=== PATIENT | female | born 1945 | race Caucasian/White ===

== ENCOUNTER 2018-06-07 13:02 | Observation (INO) | payer MEDICARE, OTHER, SELFPAY ==
[2018-06-07] VITALS (13 sets, daily range): BP systolic 143–173; BP diastolic 61–97; PULSE 64–74; RESP 13–17; TEMP 36.4–36.8; O2SAT 94–98; BMI 29.1; BMI 29.2
--- NOTE | 2018-06-07 13:27 | EKG12_ITS ---
Test Reason : WEAKNESS Blood Pressure : / mmHG Vent. Rate : 068 BPM Atrial Rate : 068 BPM P-R Int : 174 ms QRS Dur : 102 ms QT Int : 406 ms P-R-T Axes : 048 -08 149 degrees QTc Int : 431 ms Normal sinus rhythm T wave abnormality, consider lateral ischemia Abnormal ECG Confirmed by MAK CAMERON, TWILA ([id number]), telegraph editor YUMIKO TELLEZ ([id number]) on 06/10/2018 8:22:41 AM Referred By: RODNEY Confirmed By:TWILA CORADO MD
--- NOTE | 2018-06-07 13:27 | CT_ITS ---
STUDY: CT BRAIN WITHOUT CONTRAST REASON FOR EXAM: Female, 72 years old. Right hand weakness and confusion. RADIATION DOSAGE (If Supplied By Facility): CTDIvol = ( 60.81 ) mGy, DLP = ( 1044.28 ) mGycm TECHNIQUE: Transaxial CT imaging of the brain was performed without administration of intravenous contrast material. Individualized dose optimization techniques were used for this CT. COMPARISON: None. FINDINGS: Normal soft tissue structures. There is hyperostosis frontalis internus. There is mild cerebral atrophy with widening of the extra-axial spaces and ventricular dilatation. There are areas of decreased attenuation within the white matter tracts of the supratentorial brain, consistent with microvascular disease changes. Normal basal ganglia and thalami. Normal brainstem. Normal cerebellum. There is no intracranial hemorrhage. There are no findings of an acute ischemic infarction. Opacification of the right sphenoid sinus. CT/Brain/Head without Contrast IMPRESSION: Chronic involutional changes of the brain. Electronically Signed: Bertram Brown MD at 14:08 EST , Service support ,
--- NOTE | 2018-06-07 13:28 | RAD_ITS ---
STUDY: X-RAY CHEST REASON FOR EXAM: Female, 72 years old. Stroke like symptoms. TECHNIQUE: Single AP portable view of the chest. COMPARISON: None. FINDINGS: EKG electrodes are seen. The lungs are clear and expanded. There is no demonstrated pleural abnormality. Sternal cerclage wires and vascular clips are present from a prior sternotomy and coronary artery bypass graft procedure (CABG). Borderline cardiomegaly. Normal mediastinum and ana maria. Normal visualized pulmonary arteries. There is atherosclerotic calcification of the aortic arch with tortuosity. Normal visualized thoracic spine. Normal visualized ribs, clavicles, and shoulders. Moderate sized hiatal hernia. RAD/Chest 1 View IMPRESSION: No acute abnormality is seen. Electronically Signed: Bertram Brown MD at 14:05 EST , Service support ,
--- NOTE | 2018-06-07 13:28 | ED.VISSUMM ---
- ER Visit Summary Date of Service: 06/07/18 Chief Complaint: Transient weakness History of Present Illness: The patient is a 72 F who was tying her shoes about 2 days ago developed transient weakness in her right leg and right arm she was having difficulty tying her shoes difficulty buckling in the car and difficulty walking, this lasted about 10 minutes and resolved. This morning she had some paresthesias of her right hand. She denies any vision changes speech difficulties chest pain shortness of breath or abdominal pain. Currently she is asymptomatic. She denies any palpitations, history of atrial fibrillation, however she does have a history of diabetes hypertension hypercholesterolemia and a surgical history consistent with CABG. Physical Examination: Not appear in acute distress. Moist mucous membranes, no obvious facial deformity No C-spine tenderness supple neck. Regular rate and rhythm without any obvious murmurs Clear lungs bilaterally speaking in full sentences without any obvious respiratory distress Abdomen soft and nontender no guarding or rebound Moves all extremities without any difficulty or pain. Skin does not show any obvious rashes or lesions, no trauma. Alert oriented ?3 with no gross focal deficit. NIH stroke scale done by me is 0 Emergency Department Course and Treatment: Since ABCD 2 score is 5, she will be admitted for stroke workup. Her workup is otherwise unremarkable except for renal insufficiency. Disposition: Admit for stroke workup Impression: TIA This note was generated with [employer] dictation software. It may contain incorrect words, spelling, and punctuation that were not noted in review of the chart prior to signing ED Disposition - Plan for ED Patient: Referrals: Petros Gambino MD [Primary Care Provider] -
[2018-06-07 14:00] LABS: Absolute Lymphocyte Count 2.43 X10^3/ul (0.83-4.51); Absolute Neutrophil Count 4.7 X10^3/uL (2.0-7.7); Basophil# 0.02 X10^3/uL; Basophil% 0.3 % (0-1); Eosinophil# 0.12 X10^3/uL; Eosinophils% 1.5 % (0-5); Hematocrit 34.3 % (37-47); Hemoglobin 10.8 g/dl (12.0-15.0); Lymphocyte # 2.43 X10^3/ul (4.0); Mean Corp Hgb Conc 31.5 g/gl (32-36); Mean Corpuscular Hgb 29.8 pg (27.0-32.0); Mean Corpuscular Volume 94.5 fL (81-99); Mean Platelet Vol. 10.2 fl (6.2-12.0); Monocyte# 0.53 X10^3/uL; Monocyte% 6.8 % (0-10); Neutrophil # 4.72 X10^3/uL (2.7-7.7); Neutrophil % 60.3 % (47-70); Platelet Count 244 K/mm3 (150-450); RBC Distribution Width CV 12.5 % (11.6-14.6); Red Blood Count 3.63 M/mm3 (4.2-5.4); White Blood Count 7.8 K/mm3 (4.4-11.0)
[2018-06-07 14:01] LABS: POSITIVE COUNT NO; POSITIVE DIFFERENTIAL NO; POSITIVE MORPHOLOGY NO
[2018-06-07 14:07] LABS: Bedside Glucose 193 mg/dL (70-110)
[2018-06-07 14:07] LABS: International Normalized Ratio 0.9; Prothrombin Time (Protime)PT. 12.6 SECONDS (11.7-14.9)
[2018-06-07 14:08] LABS: Partial Thromboplast Time 26.5 Seconds (24.1-36.2)
[2018-06-07 14:15] LABS: Anion Gap 5 (5-15); BUN 33 mg/dL (7-18); Calcium,Total 9.2 mg/dL (8.5-10.1); Chloride 112 mmol/L (98-107); Creatinine, Serum 2.06 mg/dL (0.55-1.02); EST Glomerular Filtration Rate 25 mL/min (>60); Est Glom Filt Rate - Afr Amer 30 mL/min (>60); Estimated Creatinine Clearance 21.56 ml/min; Glucose 207 mg/dL (74-106); Potassium 4.4 mmol/L (3.5-5.1); Sodium Level 142 mmol/L (136-145)
--- NOTE | 2018-06-07 15:28 | NURSING ---
DR YANN STEVENS
--- NOTE | 2018-06-07 15:44 | ED.RN ---
verbal order received from Dr. Baeza at 1500 to discontinue NIH's.
--- NOTE | 2018-06-07 15:48 | HP.PCM_ITS ---
<Lane Nogueira - Last Filed: 06/07/18 15:48> Problem List (1) CVA (cerebral vascular accident) Status: Acute (2) HTN (hypertension) Status: Chronic (3) CAD (coronary artery disease) Status: Chronic (4) CKD (chronic kidney disease) stage 3, GFR 30-59 ml/min Status: Chronic (5) Anemia Status: Chronic History of Present Illness Date of Admission: 06/07/18 Chief Complaint: right sided weakness The patient is a 72 year old F with pmhx of CAD with prior CABG 2005, HTN, HLD, T2DM, who presents to the ER with c/o right sided weakness and right sided parasthesias. This began suddenly yesterday. It began as a sensation of weakness in her upper and lower extremities. She was unable to raise her right arm. She felt uncoordinated and had difficulty walking. She also had difficulty speaking and talking to her . This did last for about 10 minutes before spont aneously and completely resolving. She then this morning felt that her right hand went numb. She denied facial droop, headache, and vision changes. She presented to the ER and had a negative CT brain, was found to have significant HTN. She has no hx of stroke. She does take aspirin and atorvastatin. [] Past Medical History Past Medical History (Chronic Problems): Chronic Problems HTN (hypertension) (Chronic) CAD (coronary artery disease) (Chronic) CKD (chronic kidney disease) stage 3, GFR 30-59 ml/min (Chronic) Anemia (Chronic) Type II diabetes mellitus (Chronic) Allergies No Known Allergies Allergy (Verified 06/07/18 13:07) Home Medications: Ambulatory Orders Medication Instructions Recorded Aspirin E.C. [Ecotrin] 81 mg PO DAILY@0800 06/07/18 Atorvastatin Calcium 20 mg PO DAILY 06/07/18 Insulin Glargine [Lantus SoloStar 24 unit SQ DAILY 06/07/18 Pen] Insulin Lispro [Humalog KwikPen] 8 unit SQ DAILY 06/07/18 Lisinopril [Zestril] 10 mg PO BID 06/07/18 Surgical History: appendectomy, no surgical history Psychiatric History: No pertinent psych hx SHARED SERVICES REPRESENTATIVE History: No pertinent SHARED SERVICES REPRESENTATIVE history Lives: Spouse/ Significant Other Smoking Status: Never smoker Tobacco Use: Non-smoker Alcohol: None Drugs: None - *Family History Maternal History Items: Stroke Review of Systems Constitutional: Denies: Chills, Fever, Weight Change HEENT: Denies: Head Aches, Sinus Congestion, Sinus Drainage Cardiovascular: Denies: Chest Pain, Palpitations Respiratory: Denies: Cough, Shortness of breath at rest, Sputum production Gastrointestinal: Denies: Abdominal Pain, Nausea, Vomiting Genitourinary: Denies: Dysuria Musculoskeletal: Denies: Joint Pain, Joint Tenderness Skin: Denies: Rash, Wounds Neurological: Reports: Change in Speech, Focal weakness, Incoordination, Numbness, Tingling. Denies: Difficulty swallowing, Headaches Psychiatric: Denies: Anxiety, Depression, Homicidal Ideations, Suicidal Ideations Hematologic/ Lymphatic: Denies: Easy Bruising, Easy Bleeding VTE Information - Inpt Only VTE Present on Admission: No VTE Mechan Device Prophylaxis: None VTE Pharm Prophylaxis ordered?: Yes Patient Problems: Active and Suspected Problems CVA (cerebral vascular accident) (Acute) - Physical Exam General: Alert, Oriented x3, Cooperative HEENT: Atraumatic, PERRLA, EOMI, Normocephalic Neck: Supple, No JVD, Negative Carotid Bruits Lungs: Clear to auscultation, Normal air movement Cardiovascular: Regular rate, No murmurs Abdomen: Bowel Sounds Present, Soft, Non Tender Extremities: No edema, Capillary Refill Less than 3 Seconds Skin: No rashes, No breakdown Musculoskeletal: No Tenderness to Palpation of Joints or Extremities Neurological: Cranial nerves II-XII grossly intact Psych/Mental Status: Normal Affect, Appropriate Vital Signs Temp Pulse Resp BP Pulse Ox 97.5 F L 71 16 171/86 H 96 06/07/18 13:04 06/07/18 14:57 06/07/18 14:57 06/07/18 14:57 06/07/18 14:57 Oxygen Delivery Method Room Air Weight: 175 lb Body Mass Index (BMI) 29.1 Finger Stick Blood Glucose 193 Laboratory Tests Past 24 Hrs 06/07/18 06/07/18 06/07/18 13:40 13:40 13:40 WBC 7.8 RBC 3.63 L Hgb 10.8 L Hct 34.3 L MCV 94.5 MCH 29.8 MCHC 31.5 L RDW 12.5 RDW Differential 42.0 Plt Count 244 MPV 10.2 Immature Gran % (Auto) 0.100 Neut % (Auto) 60.3 Lymph % (Auto) 31.0 Miller % (Auto) 6.8 Eos % (Auto) 1.5 Baso % (Auto) 0.3 Absolute Neuts (auto) 4.7 Absolute Lymphs (auto) 2.43 Total Counted Not Reportable PT 12.6 INR 0.9 APTT 26.5 Sodium 142 Potassium 4.4 Chloride 112 H Carbon Dioxide 25.0 Anion Gap 5 BUN 33 H Creatinine 2.06 H Estim Creat Clear Calc 21.56 Est GFR (MDRD) Af Amer 30 L Est GFR (MDRD) Non-Af 25 L BUN/Creatinine Ratio 16.0 Glucose 207 H Calcium 9.2 Troponin I < 0.015 POC Glucose 06/07/18 13:59 POC Glucose 193 H Assessment/Plan All Active Problems CVA (cerebral vascular accident) (Acute) 1. CVA, suspect TIA - transient right sided weakness, speech difficulty, parasthesias right side. Now resolved. Marked HTN. CT brain with chronic changes. Continue asa/statin. Consult neuro. Obtain MRI brain, MRA head and neck. Obtain echo. PTOTST evals. Trop neg. EKG with SR, nonspecific t wave abnormalities. INR normal. CXR neg. 2. HTN - hold orals. permissive with CVA> 3. DMt2 - home insulin regimen will need improved. 4. Suspect CKD III - no prior labs available. IV fluids with need for contrast. 5. Normocytic anemia - trend. no prior labs available. 6. CAD - CABG in 2005. Negative trop, EKG SR, t wave changes. DVT ppx: heparin DC planning: PTOTST This patient was seen by Lane Nogueira PA-C under the supervision of Dr. Medina. <Enio Medina - Last Filed: 06/07/18 16:10> History of Present Illness The patient is a 72 year old F came to ED for right sided weakness and paresthesia; lasting for about 10 mins about 2 days ago and again right hand numbness today am. Denies previous stroke/TIA. Rest agree with above note. [] Past Medical History Allergies zinc Allergy (Verified 06/07/18 15:46) blisters - Physical Exam General: Alert, Oriented x3, Cooperative HEENT: Atraumatic, PERRLA, EOMI, Normocephalic Neck: Supple, No JVD, Negative Carotid Bruits Lungs: Clear to auscultation, Normal air movement Cardiovascular: Regular rate, Regular Rhythm, Normal S1, Normal S2, No murmurs Abdomen: Bowel Sounds Present, Soft, Non Tender, Non-Distended Extremities: No edema, Capillary Refill Less than 3 Seconds Skin: No rashes, No breakdown Musculoskeletal: No Tenderness to Palpation of Joints or Extremities, Arthritic Changes Neurological: Cranial nerves II-XII grossly intact, Deep Tendon Reflexes 2+/4 and Symmetrical, Neuro grossly intact, Motor Exam 5/5 strength throughout, - - NIHSS 0 Psych/Mental Status: Normal Affect, Appropriate Vital Signs Temp Pulse Resp BP Pulse Ox 97.5 F L 74 17 173/77 H 98 06/07/18 13:04 06/07/18 15:45 06/07/18 15:45 06/07/18 15:45 06/07/18 15:45 Oxygen Delivery Method Room Air Weight: 175 lb Body Mass Index (BMI) 29.1 Finger Stick Blood Glucose 193 Laboratory Tests Past 24 Hrs 06/07/18 06/07/18 06/07/18 13:40 13:40 13:40 WBC 7.8 RBC 3.63 L Hgb 10.8 L Hct 34.3 L MCV 94.5 MCH 29.8 MCHC 31.5 L RDW 12.5 RDW Differential 42.0 Plt Count 244 MPV 10.2 Immature Gran % (Auto) 0.100 Neut % (Auto) 60.3 Lymph % (Auto) 31.0 Miller % (Auto) 6.8 Eos % (Auto) 1.5 Baso % (Auto) 0.3 Absolute Neuts (auto) 4.7 Absolute Lymphs (auto) 2.43 Total Counted Not Reportable PT 12.6 INR 0.9 APTT 26.5 Sodium 142 Potassium 4.4 Chloride 112 H Carbon Dioxide 25.0 Anion Gap 5 BUN 33 H Creatinine 2.06 H Estim Creat Clear Calc 21.56 Est GFR (MDRD) Af Amer 30 L Est GFR (MDRD) Non-Af 25 L BUN/Creatinine Ratio 16.0 Glucose 207 H Calcium 9.2 Troponin I < 0.015 POC Glucose 06/07/18 13:59 POC Glucose 193 H Assessment/Plan This patient was seen in conjunction with Lane LU. I have independently interviewed and examined the patient and reviewed pertinent history, examination findings, laboratory and plan of management. I have reviewed the note and agree with the documented findings with the few additional points. In brief, patient is admitted for TIA. Stroke work up with MRI Head and MRA head and neck, ECHO, FLP, A1c, neurologist evaluation, PT/OT/Speech and swallow evaluation. EKG reviewed and shows NSR with nonspecific T wave inversion, most probably repolarization abnormality. BP is elevated. BP and Glucose to be optimized as per stroke guidelines. Plan of management discussed with patient and her near the bedside I have discussed my assessment with Lane LU and orders have been reviewed. Code Visit OBSV E&M: 22151 Initial observation care L3
--- NOTE | 2018-06-07 16:28 | MRI_ITS ---
STUDY: MRI BRAIN WITHOUT CONTRAST REASON FOR EXAM: Female, 72 years old. TIA, right-sided numbness and tingling x2 days. TECHNIQUE: Standardized multiplanar fat and water weighted pulse sequences were obtained. COMPARISON: CT brain 06/07/2018. FINDINGS: There are several punctate foci of restricted diffusion in the left parietal and occipital lobes, consistent with embolic phenomenon. There is no mass, hemorrhage, or territorial infarct. There is mild cerebral atrophy with widening of the extra-axial spaces and ventricular dilatation. There are multiple white matter hyperintensities, distributed throughout the deep white matter tracts of the cerebral hemispheres, consistent with moderate chronic white matter ischemic changes. Normal bilateral basal ganglia. Normal thalami. There is no extra-axial fluid accumulation. Normal flow voids within the major intracranial circulation suggesting patency by spin echo criteria. Normal sella turcica, pituitary gland, infundibular stalk, optic chiasm and hypothalamus. Normal tectal plate and pineal gland. Normal midbrain, ramiro and medulla. Normal cerebellum. Normal basal cisterns. Normal bilateral temporal bones. Normal bilateral internal auditory canals. No demonstrated orbital abnormality, within the constraints of a routine brain study. There is moderate mucosal thickening in the right sphenoid sinus. Normal calvarium and skull base. Normal visualized soft tissue structures. Normal visualized upper cervical spine. MRI/Brain without Contrast IMPRESSION: 1. Multiple punctate infarcts in the left parietal and occipital lobes consistent with embolic phenomenon. 2. Moderate microvascular ischemic changes. 3. Chronic sinusitis. Dr. Griffith discussed the findings with Dr. Meza at 8:13 PM. N.B. : The above information has been verbally conveyed by Ana Lilia Griffith MD to Dr. Lola Meza MD, on 06/07/2018 20:13:29 (ET). Electronically Signed: Ana Lilia Griffith MD at 20:22 EST Tel , Service support ,
--- NOTE | 2018-06-07 16:28 | MRI_ITS ---
STUDY: MRA OF THE HEAD WITHOUT CONTRAST REASON FOR EXAM: Female, 72 years old. TIA, right-sided numbness and tingling x2 days. TECHNIQUE: 3-D [id number] (TOF) imaging was performed with MIPs. The study was performed unenhanced. COMPARISON: None. FINDINGS: Normal bilateral petrous carotid arteries. Normal right cavernous carotid artery with a normal supraclinoid bifurcation. Normal left cavernous carotid artery with a normal supraclinoid bifurcation. Normal right A1 segments of the anterior cerebral artery. Normal left A1 segments of the anterior cerebral artery. Normal intact anterior communicating artery (ACOM). Normal bilateral A2 segments of the anterior cerebral arteries. Normal right M1 and M2 segments of the middle cerebral arteries, with a normal M1 bifurcation. Normal left M1 and M2 segments of the middle cerebral arteries, with a normal M1 bifurcation. There is non-visualization of the right posterior communicating artery (PCOM). There is non-visualization of the left posterior communicating artery (PCOM). Normal bilateral vertebral arteries. Normal basilar artery with a normal basilar bifurcation. The visualized bilateral superior cerebellar (SCA) arteries are normal. Normal bilateral P1, P2 and visualized P3 segments of the posterior cerebral arteries. There is no demonstrated aneurysm of the [place]. There is no major vessel occlusion or significant stenosis. MRI/MRA Head ONLY without Contrast IMPRESSION: Normal MRA of the head. Electronically Signed: Ana Lilia Griffith MD at 20:07 EST Tel , Service support ,
--- NOTE | 2018-06-07 16:28 | MRI_ITS ---
STUDY: MRA NECK WITHOUT CONTRAST REASON FOR EXAM: Female, 72 years old. TECHNIQUE: Source images were obtained, MIPs were performed. The study was performed unenhanced. COMPARISON: None. FINDINGS: RIGHT CAROTID ARTERIES: Normal right common carotid artery (CCA). Normal right common carotid bulb. Normal origin of the right internal carotid (ICA) artery without a significant stenosis. Normal visualized cervical portion of the right internal carotid artery. Normal origin of the right external carotid artery (ECA). LEFT CAROTID ARTERIES: Normal left common carotid artery (CCA). Normal left common carotid bulb. Normal origin of the left internal carotid (ICA) artery without a significant stenosis. Normal visualized cervical portion of the left internal carotid artery. Normal origin of the left external carotid artery (ECA). VERTEBRAL ARTERIES: Right dominant vertebral artery. Vertebral arteries are patent bilaterally, with no dissection, stenosis, or occlusion. MRI/MRA Neck without Contrast IMPRESSION: Normal bilateral cervical carotid and vertebral arteries. Electronically Signed: Ana Lilia Griffith MD at 20:16 EST Tel , Service support ,
--- NOTE | 2018-06-07 16:28 | ECHOCS_ITS ---
Reason For Study: TIA Procedure This was a 2D Doppler, Color Flow transthoracic echocardiogram. Exam performed portable in patient room. Left Ventricle Moderate concentric left ventricular hypertrophy. The estimated ejection fraction is 65 %. Stage 1 diastolic dysfunction. No regional wall motion abnormalities noted. Right Ventricle Normal size and thickness. Normal systolic function. Atria The left atrium is mildly enlarged. Normal right atrium. Normal atrial septum. Bubble contrast study negative for right to left interatrial shunt. Mitral Valve The mitral valve is structurally normal. No prolapse or stenosis seen. Tricuspid Valve Normal tricuspid valve. Trivial tricuspid valve insufficiency. Right ventricular systolic pressure estimated to be 38 mmHg. Mild pulmonary hypertension. Aortic Valve Trisinus/trileaflet aortic valve. Mild diffuse aortic valve thickening. There is no aortic stenosis. Pulmonic Valve Normal pulmonic valve. Great Vessels Normal aortic root. Mild atherosclerosis of the aortic arch. Normal inferior vena cava. Inferior vena cava collapse with respiration. Pericardium/Pleural No pericardial effusion. Medication Diluted definity 6ml given slow IV push to enhance endocardial definition. Performed a rapid injection of agitated mix of 9 cc saline and 1cc air to assess for atrial septal defect. MMode/2D Measurements & Calculations LVIDd: 3.8 cm IVSd: 1.6 cm LA dimension: 4.3 cm LVIDs: 2.6 cm LVPWd: 1.4 cm FS: 33.0 % LAV(MOD-sp4): 63.8 ml LA A4 area: 20.5 cm2 RA A4 area: 15.5 cm2 Time Measurements MV dec time: 0.23 sec Doppler Measurements & Calculations MV E max tejinder: 109.1 cm/sec Lat Peak E' Tejinder: 9.9 cm/sec Med Peak E' Tejinder: 5.0 cm/sec MV A max tejinder: 122.9 cm/sec E/E' lat: 11.1 E/E' med: 21.7 MV E/A: 0.89 MV V2 max: 131.9 cm/sec MV P1/2t max tejinder: 123.3 cm/sec Ao V2 max: 169.5 cm/sec MV max P.0 mmHg MV P1/2t: 102.7 msec Ao max P.5 mmHg MV V2 mean: 72.3 cm/sec MV dec slope: 351.5 cm/sec2 Ao V2 mean: 112.6 cm/sec MV mean P.5 mmHg Ao mean P.7 mmHg MV V2 VTI: 38.9 cm MVA(P1/2t): 2.1 cm2 Ao V2 VTI: 34.8 cm LV V1 max: 105.3 cm/sec PA V2 max: 111.7 cm/sec TR max tejinder: 286.5 cm/sec LV V1 max P.5 mmHg TR max P.8 mmHg LV V1 mean P.2 mmHg LV V1 mean: 68.2 cm/sec LV V1 VTI: 23.9 cm Interpretation Summary Moderate concentric left ventricular hypertrophy. The estimated ejection fraction is 65 %. Stage 1 diastolic dysfunction. Bubble contrast study negative for right to left interatrial shunt. Trivial tricuspid valve insufficiency. Right ventricular systolic pressure estimated to be 38 mmHg. Mild pulmonary hypertension. The study was technically difficult. A transesophageal echocardiogram is recommended. There is no comparison study available. Ordering Physician: Enio Medina Referring Physician: MD Maki Petros Performed By: Tristan Pineda RCS
[2018-06-07] MEDS: 0.9% Normal Saline 1,000 ML 75 ML IV (16:51)
[2018-06-07] MEDS: 0.9% NaCl Peripheral Flush Adult/Peds IV (16:51)
[2018-06-07 17:11] LABS: Bedside Glucose 131 mg/dL (70-110)
[2018-06-07] MEDS: Insulin Lispro 100 UNIT/ML INSULN.PEN 8 UNIT SC (18:20)
[2018-06-07] MEDS: Aspirin E.C. 81 MG Tablet PO (18:20)
--- NOTE | 2018-06-07 19:35 | NURSING ---
Spoke with patient's daughter Masha about patient status.
--- NOTE | 2018-06-07 20:12 | PCM.HOSP.N ---
Hospitalist Note RADIOLOGY CALL BACK ON IMAGING RESULTS: MRI brain w/ multiple small lacunar punctate infarctions in the L parietal and occipital lobe, likely embolic, two different vascular distributions per Radiology discussion.
[2018-06-07] MEDS: Atorvastatin Calcium 80 MG Tablet PO (21:39)
[2018-06-07] MEDS: APIXABAN 5 MG TABLET PO (21:39)
[2018-06-07] MEDS: MELATONIN 3 MG TABLET PO (21:39)
[2018-06-07 22:31] LABS: Bedside Glucose 87 mg/dL (70-110)
[2018-06-08] VITALS (7 sets, daily range): BP systolic 130–147; BP diastolic 49–71; PULSE 58–97; RESP 16; TEMP 36.7; O2SAT 94–97
[2018-06-08] MEDS: Acetaminophen 325 MG Tablet 650 MG PO (02:00)
[2018-06-08 06:13] LABS: AST(SGOT) 11 U/L (15-37); Alanine Aminotransfer ALT/SGPT 18 U/L (13-56); Albumin, Serum 2.6 g/dL (3.2-5.0); Alkaline Phosphatase 102 U/L (45-117); Bilirubin, Direct 0.14 mg/dL (0.00-0.30); Cholesterol 98 mg/dL (200); Globulin 3.6 g/dL (2.2-4.2); High Density Lipoprotein 37 mg/dL; Protein, Total 6.2 g/dL (6.4-8.2); Thyroid Stim Hormone (TSH) 2.52 uIU/mL (0.358-3.74); Triglycerides 111 mg/dL; Very Low Density Lipoprotein 22 mg/dL (5-40)
[2018-06-08 06:56] LABS: Bedside Glucose 89 mg/dL (70-110)
[2018-06-08] MEDS: Famotidine 20 MG Tablet PO (10:08)
[2018-06-08] MEDS: Aspirin E.C. 81 MG Tablet PO (10:08)
[2018-06-08] MEDS: APIXABAN 5 MG TABLET PO (10:08)
[2018-06-08] MEDS: 0.9% Normal Saline 1,000 ML 75 ML IV (10:09)
--- NOTE | 2018-06-08 10:44 | PCM.CONS.GEN ---
Reason for Consult Date of Consultation: 06/08/18 Reason for Consultation: STROKE History of Present Illness: The patient is a 72 year old right handed white female presented yesterday with right sided symptoms which initially started wednesday06/05/18, improved the next day, then worsened again leading to hospitalization. also noted speech abnormality begining 06/05/18 which has improved but not normalized as well. pt reports now mri disclosed stroke. takes asa daily at home. nonsmoker. history of untreated AIME, last sleep study 2 yrs ago. per hospitalist note:The patient is a 72 year old F with pmhx of CAD with prior CABG 2005, HTN, HLD, T2DM, who presents to the ER with c/o right sided weakness and right sided parasthesias. This began suddenly yesterday. It began as a sensation of weakness in her upper and lower extremities. She was unable to raise her right arm. She felt uncoordinated and had difficulty walking. She also had difficulty speaking and talking to her . This did last for about 10 minutes before spontaneously and completely resolving. She then this morning felt that her right hand went numb. She denied facial droop, headache, and vision changes. She presented to the ER and had a negative CT brain, was found to have significant HTN. She has no hx of stroke. She does take aspirin and atorvastatin. Past Medical History Past Medical History (Chronic Problems): Chronic Problems HTN (hypertension) (Chronic) CAD (coronary artery disease) (Chronic) CKD (chronic kidney disease) stage 3, GFR 30-59 ml/min (Chronic) Anemia (Chronic) Type II diabetes mellitus (Chronic) Allergies zinc Allergy (Verified 06/07/18 15:46) blisters Home Medications: Ambulatory Orders Medication Instructions Recorded Aspirin E.C. [Ecotrin] 81 mg PO DAILY@0800 06/07/18 Atorvastatin Calcium 20 mg PO DAILY 06/07/18 Insulin Glargine [Lantus SoloStar 24 unit SQ DAILY 06/07/18 Pen] Insulin Lispro [Humalog KwikPen] 8 unit SQ DAILY 06/07/18 Lisinopril [Zestril] 10 mg PO BID 06/07/18 Surgical History: appendectomy, no surgical history Psychiatric History: No pertinent psych hx COST SPECIALIST History: No pertinent COST SPECIALIST history Lives: Spouse/ Significant Other Smoking Status: Never smoker Tobacco Use: Non-smoker Alcohol: None Drugs: None - *Family History Maternal History Items: Stroke Review of Systems Constitutional: Denies: Chills, Fever, Weight Change HEENT: Denies: Head Aches, Sinus Congestion, Sinus Drainage Cardiovascular: Denies: Chest Pain, Palpitations Respiratory: Denies: Cough, Shortness of breath at rest, Sputum production Gastrointestinal: Denies: Abdominal Pain, Nausea, Vomiting Genitourinary: Denies: Dysuria Musculoskeletal: Denies: Joint Pain, Joint Tenderness Skin: Denies: Rash, Wounds Neurological: Denies: Numbness, Tingling, Focal weakness Psychiatric: Denies: Anxiety, Depression, Homicidal Ideations, Suicidal Ideations Hematologic/ Lymphatic: Denies: Easy Bruising, Easy Bleeding Patient Problems: Active and Suspected Problems CVA (cerebral vascular accident) (Acute) - Physical Exam General: Alert, Oriented x3, Cooperative, No apparent distress HEENT: PERRLA, EOMI, Normocephalic Neurological: Cranial nerves II-XII grossly intact, Deep Tendon Reflexes 2+/4 and Symmetrical, Neuro grossly intact, Motor Exam 5/5 strength throughout, Sensory exam intact to light touch and pain Psych/Mental Status: Normal Affect, Alert and oriented to time, place, person, mood and affect Vital Signs Temp Pulse Resp BP Pulse Ox 36.7 C 62 16 130/49 H 96 06/08/18 09:25 06/08/18 09:25 06/08/18 09:25 06/08/18 09:25 06/08/18 09:25 Oxygen Delivery Method Room Air Weight: 79.9 kg Body Mass Index (BMI) 29.2 Finger Stick Blood Glucose 193 Intake and Output for Last 24 Hours 06/06/18 06/07/18 06/08/18 23:59 23:59 23:59 Intake Total 823 / 823 329 / 329 Balance 823 / 823 329 / 329 Laboratory Tests Past 24 Hrs 06/07/18 06/07/18 06/07/18 13:40 13:40 13:40 WBC 7.8 RBC 3.63 L Hgb 10.8 L Hct 34.3 L MCV 94.5 MCH 29.8 MCHC 31.5 L RDW 12.5 RDW Differential 42.0 Plt Count 244 MPV 10.2 Immature Gran % (Auto) 0.100 Neut % (Auto) 60.3 Lymph % (Auto) 31.0 Sebastian % (Auto) 6.8 Eos % (Auto) 1.5 Baso % (Auto) 0.3 Absolute Neuts (auto) 4.7 Absolute Lymphs (auto) 2.43 Total Counted Not Reportable PT 12.6 INR 0.9 APTT 26.5 Sodium 142 Potassium 4.4 Chloride 112 H Carbon Dioxide 25.0 Anion Gap 5 BUN 33 H Creatinine 2.06 H Estim Creat Clear Calc 21.56 Est GFR (MDRD) Af Amer 30 L Est GFR (MDRD) Non-Af 25 L BUN/Creatinine Ratio 16.0 Glucose 207 H Hemoglobin A1c Calcium 9.2 Total Bilirubin Direct Bilirubin AST ALT Alkaline Phosphatase Troponin I < 0.015 Total Protein Albumin Globulin Triglycerides Cholesterol LDL Cholesterol VLDL Cholesterol HDL Cholesterol TSH 06/07/18 06/08/18 06/08/18 16:58 05:30 05:30 WBC RBC Hgb Hct MCV MCH MCHC RDW RDW Differential Plt Count MPV Immature Gran % (Auto) Neut % (Auto) Lymph % (Auto) Sebastian % (Auto) Eos % (Auto) Baso % (Auto) Absolute Neuts (auto) Absolute Lymphs (auto) Total Counted PT INR APTT Sodium Potassium Chloride Carbon Dioxide Anion Gap BUN Creatinine Estim Creat Clear Calc Est GFR (MDRD) Af Amer Est GFR (MDRD) Non-Af BUN/Creatinine Ratio Glucose Hemoglobin A1c 10.0 H Calcium Total Bilirubin 0.50 Direct Bilirubin 0.14 AST 11 L ALT 18 Alkaline Phosphatase 102 Troponin I < 0.015 Total Protein 6.2 L Albumin 2.6 L Globulin 3.6 Triglycerides 111 Cholesterol 98 LDL Cholesterol 39 VLDL Cholesterol 22 HDL Cholesterol 37 L TSH 2.52 POC Glucose 06/08/18 06/07/18 06/07/18 06:51 21:40 17:01 POC Glucose 89 87 131 H 06/07/18 13:59 POC Glucose 193 H mri brain shows several punctate acute left hemispheric infarcts. reviewed. mra no significant stenosis Assessment/Plan All Active Problems CVA (cerebral vascular accident) (Acute) acute left hemispheric embolic infarcts pt/ot/sp asa and plavix statin echo pending tele outpt 30 d event monitor untreated aime: recommend [facility]ist as outpt. likely needs MRD.
--- NOTE | 2018-06-08 13:31 | DCINST_ITS ---
- Discharge Diagnoses Current Active Problems: Current Active and Chronic Problems HTN (hypertension) (Chronic) CAD (coronary artery disease) (Chronic) CVA (cerebral vascular accident) (Acute) CKD (chronic kidney disease) stage 3, GFR 30-59 ml/min (Chronic) Anemia (Chronic) You will use the following diet at home:: Calorie/Carbohydrate Controlled (specify 1200, 1400, etc) - 1800 vel / day, Cardiac - <2 gram / day Your food should be the consistency of: Regular Your liquids should be the consistency of: Regular/Thin Discharge Activity: Return to Normal Activity Allergies/Adverse Reactions: Allergies zinc Allergy (Verified 06/07/18 15:46) blisters Medications to take at Discharge Aspirin E.C. [Ecotrin] 81 mg PO DAILY@0800 06/07/18 Insulin Glargine [Lantus SoloStar Pen] 24 unit SQ DAILY 06/07/18 Insulin Lispro [Humalog KwikPen] 8 unit SQ DAILY 06/07/18 Lisinopril [Zestril] 10 mg PO BID 06/07/18 Atorvastatin Calcium [Lipitor] 80 mg PO QHS #30 tablet 06/08/18 Clopidogrel Bisulfate [Plavix] 75 mg PO DAILY #30 tablet 06/08/18 The following prescriptions were given: Atorvastatin Calcium [Lipitor] 80 mg PO QHS #30 tablet Clopidogrel Bisulfate [Plavix] 75 mg PO DAILY #30 tablet Orders to be completed after discharge: 30-Day Event Recorder [[facility]] Location: None Selected Primary Care Physician: Petros Gambino MD [Primary Care Provider] - Please follow up with your Primary Care Physician in: 1-2 weeks Test Results: Test results from this visit will be discussed in further detail at your follow- up appointment, if applicable. Please Follow Up With: Rylan Khan MD When: 2 weeks Please Follow Up With: Miguel Kerr MD When: Call for appointment Proposed Discharge Date: 06/08/17
--- NOTE | 2018-06-08 14:49 | CASEMGMT ---
HCPOA and Living will are in echart. Forms printed off and placed on pt chart. SW met with pt and confirmed documents are still current. HCPOA is Leonidas Acevedo. TRENTON Maria
--- NOTE | 2018-06-08 14:53 | CASEMGMT ---
Social Work SW met with pt and completed PHQ 9 assessment with pt score of 7. Pt denies feelings of depression but states she does feel tired from her illness and credits this for areas of assessment that she answered in the affirmative. Pt denies any thoughts of harming herself. Pt plans to return to her home with her spouse and tells SW of things she plans to do when she returns home. SW will remain available should other needs arise. TRENTON Maria
--- NOTE | 2018-06-08 15:03 | CASEMGMT ---
OT is recommending outpt therapy for pt at this time. Pt is agreeable and would like to go to [facility]. Order signed by Dr. Curtis at this time and faxed to [facility] at this time. Original to pt at this time, voices understanding of instructions. Call to [facility] to verify order received and they state they have it at this time. Radha GAMBLE CM
--- NOTE | 2018-06-08 15:15 | CHAPLAIN ---
Type of Pastoral Visit _x__ Initial Visit ___ Follow-up Visit ___ On-call Visit ___ General Patient Visit ___ Spiritual Assessment ___ Family Conference ___ Bereavement ___ Rapid Response ___ Code Blue ___ Other (describe below) Pastoral Care Referral From _x__ Patient ___ Family ___ Nurse ___ Physician ___ Cat Tender ___ Life Manager ___ Other (describe below) Sacrament/Intervention _x__ Active listening ___ Anointing ___ Denominational ___ Bereavement ___ Communion _x__ Tiesha exploration ___ _x__ Life review _x__ Prayer ___ Reconciliation ___ Sacrament of Sick _x__ Supportive presence ___ Wedding ___ Other (describe below) Pastoral Comments patient begins conversation with her inability to find any yarsanism in [place] that she can agree with and support; pt discloses her perceptions of churches and her own beliefs; pt says she is a descendent of Kyle the Hindu; pt tells backshoe person that she has three daughters who will be coming from various areas to gather here; pt welcomes prayer for her health and for guidance in spiritual journey
--- NOTE | 2018-06-08 16:29 | PCM.DC.SUM ---
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 RAD/Chest 1 View IMPRESSION: No acute abnormality is seen. MRI/Brain without Contrast IMPRESSION: 1. Multiple punctate infarcts in the left parietal and occipital lobes consistent with embolic phenomenon. 2. Moderate microvascular ischemic changes. 3. Chronic sinusitis. Echo: Interpretation Summary Moderate concentric left ventricular hypertrophy. The estimated ejection fraction is 65 %. Stage 1 diastolic dysfunction. Bubble contrast study negative for right to left interatrial shunt. Trivial tricuspid valve insufficiency. Right ventricular systolic pressure estimated to be 38 mmHg. Mild pulmonary hypertension. The study was technically difficult. A transesophageal echocardiogram is recommended. There is no comparison study available. MRI/MRA Head ONLY without Contrast IMPRESSION: Normal MRA of the head. MRI/MRA Neck without Contrast IMPRESSION: Normal bilateral cervical carotid and vertebral arteries. Consults: Neuro - [facility] Operations: None Procedures: 2-D Echocardiogram Summary of Care Provided: Hospital course: The patient is a 72 year old F with past medical history of CAD, hypertension, type 2 diabetes poorly controlled, who presented the emergency room with complaints of right-sided weakness, numbness, speech difficulty. CT of the brain was obtained with concern for stroke, this was negative, blood pressure was elevated in the 170s. Symptoms had completely resolved at the time of admission. She was admitted to the PCU and placed on telemetry. No events on telemetry overnight. Overnight she did have recurrence of her symptoms with an NIH of 4. MRI did demonstrate multiple small strokes as above, presumed embolic. She was prophylactically placed on Eliquis. Neurology came to evaluate the patient the following day. They placed the patient on aspirin and Plavix and felt that Eliquis is not indicated and less A. fib was specifically seen. Eliquis was discontinued. Echocardiogram was obtained with no acute process as above. The patient had no further recurrence of her symptoms. Is felt that the patient required a 30-day event monitor. This was arranged for her discharge. Dr. Kerr, cardiology, agreed to read. She will follow-up with cardiology in 2 weeks. She did well with speech therapy, PT and OT. Statin dose was maximized. She is discharged home in stable condition will need to follow-up with neurology as an outpatient in 2 weeks, follow-up with PCP in 1-2 weeks. This patient was seen by Lane Nogueira PA-C under the supervision of Doctor Curtis. [] - Physical Exam General: Alert, Oriented x3, Cooperative HEENT: Atraumatic, PERRLA, EOMI, Normocephalic Neck: Supple, No JVD, Negative Carotid Bruits Lungs: Clear to auscultation, Normal air movement Cardiovascular: Regular rate, No murmurs Abdomen: Bowel Sounds Present, Soft, Non Tender Extremities: No edema, Capillary Refill Less than 3 Seconds Skin: No rashes, No breakdown Musculoskeletal: No Tenderness to Palpation of Joints or Extremities Neurological: Cranial nerves II-XII grossly intact Psych/Mental Status: Normal Affect, Appropriate Vital Signs Temp Pulse Resp BP Pulse Ox 98.0 F 97 16 132/60 H 97 06/08/18 13:00 06/08/18 13:00 06/08/18 13:00 06/08/18 13:00 06/08/18 13:00 Oxygen Delivery Method Room Air Weight: 176 lb 2.389 oz Body Mass Index (BMI) 29.2 Finger Stick Blood Glucose 193 Intake and Output for Last 24 Hours 06/06/18 06/07/18 06/08/18 23:59 23:59 23:59 Intake Total 823 / 823 1289 / 1289 Balance 823 / 823 1289 / 1289 Laboratory Tests Past 24 Hrs 06/07/18 06/08/18 06/08/18 16:58 05:30 05:30 Hemoglobin A1c 10.0 H Total Bilirubin 0.50 Direct Bilirubin 0.14 AST 11 L ALT 18 Alkaline Phosphatase 102 Troponin I < 0.015 Total Protein 6.2 L Albumin 2.6 L Globulin 3.6 Triglycerides 111 Cholesterol 98 LDL Cholesterol 39 VLDL Cholesterol 22 HDL Cholesterol 37 L TSH 2.52 POC Glucose 06/08/18 06/07/18 06/07/18 06:51 21:40 17:01 POC Glucose 89 87 131 H Discharge Diet: Low fat/ Low Cholesterol, 1800 Calorie Control Diet, 2000 mg Sodium Diet Discharge Activity: Return to Normal Activity Home Medications: Medications to take at Discharge Aspirin E.C. [Ecotrin] 81 mg PO DAILY@0800 06/07/18 Insulin Glargine [Lantus SoloStar Pen] 24 unit SQ DAILY 06/07/18 Insulin Lispro [Humalog KwikPen] 8 unit SQ DAILY 06/07/18 Lisinopril [Zestril] 10 mg PO BID 06/07/18 Atorvastatin Calcium [Lipitor] 80 mg PO QHS #30 tablet 06/08/18 Clopidogrel Bisulfate [Plavix] 75 mg PO DAILY #30 tablet 06/08/18 Following Prescrptions Were Given to Patient: Atorvastatin Calcium [Lipitor] 80 mg PO QHS #30 tablet Clopidogrel Bisulfate [Plavix] 75 mg PO DAILY #30 tablet Other Amb Orders: 30-Day Event Recorder [[facility]] Location: None Selected Primary Care Physician: Petros Gambino MD [Primary Care Provider] - Please follow up with your Primary Care Physician in: 1-2 weeks Please Follow Up With: Rylan Khan MD When: 2 weeks Please Follow Up With: Miguel Kerr MD When: Call for appointment Disposition: Home Minutes spent on discharge:: 35 Patient Condition:: Stable Medical Necessity - Tobacco Use Smoking Status: Never smoker Tobacco Use: Non-smoker Meaningful Use Info Meaningful Use Diagnoses (Choose all that apply): Ischemic CVA - CVA Therapy Assessed for PT,OT and/or ST?: Yes - Ischemic Stroke Antithrombotic order at d/c?: Yes Dx of Atrial fib/flutter?: No Statins at discharge?: Yes Primary Dx Acute Ischemic CVA?: Yes IV tPA ordered during stay?: No Reason IV t-PA not ordered: Treatment not Indicated
--- NOTE | 2018-06-08 16:34 | DS.PCM_ITS ---
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 RAD/Chest 1 View IMPRESSION: No acute abnormality is seen. MRI/Brain without Contrast IMPRESSION: 1. Multiple punctate infarcts in the left parietal and occipital lobes consistent with embolic phenomenon. 2. Moderate microvascular ischemic changes. 3. Chronic sinusitis. Echo: Interpretation Summary Moderate concentric left ventricular hypertrophy. The estimated ejection fraction is 65 %. Stage 1 diastolic dysfunction. Bubble contrast study negative for right to left interatrial shunt. Trivial tricuspid valve insufficiency. Right ventricular systolic pressure estimated to be 38 mmHg. Mild pulmonary hypertension. The study was technically difficult. A transesophageal echocardiogram is recommended. There is no comparison study available. MRI/MRA Head ONLY without Contrast IMPRESSION: Normal MRA of the head. MRI/MRA Neck without Contrast IMPRESSION: Normal bilateral cervical carotid and vertebral arteries. Consults: Neuro - [facility] Operations: None Procedures: 2-D Echocardiogram Summary of Care Provided: Hospital course: The patient is a 72 year old F with past medical history of CAD, hypertension, type 2 diabetes poorly controlled, who presented the emergency room with complaints of right-sided weakness, numbness, speech difficulty. CT of the brain was obtained with concern for stroke, this was negative, blood pressure was elevated in the 170s. Symptoms had completely resolved at the time of admission. She was admitted to the PCU and placed on telemetry. No events on telemetry overnight. Overnight she did have recurrence of her symptoms with an NIH of 4. MRI did demonstrate multiple small strokes as above, presumed embolic. She was prophylactically placed on Eliquis. Neurology came to evaluate the patient the following day. They placed the patient on aspirin and Plavix and felt that Eliquis is not indicated and less A. fib was specifically seen. Eliquis was discontinued. Echocardiogram was obtained with no acute process as above. The patient had no further recurrence of her symptoms. Is felt that the patient required a 30-day event monitor. This was arranged for her discharge. Dr. Kerr, cardiology, agreed to read. She will follow-up with cardiology in 2 weeks. She did well with speech therapy, PT and OT. Statin dose was maximized. She is discharged home in stable condition will need to follow-up with neurology as an outpatient in 2 weeks, follow-up with PCP in 1-2 weeks. This patient was seen by Lane Nogueira PA-C under the supervision of Doctor Curtis. [] - Physical Exam General: Alert, Oriented x3, Cooperative HEENT: Atraumatic, PERRLA, EOMI, Normocephalic Neck: Supple, No JVD, Negative Carotid Bruits Lungs: Clear to auscultation, Normal air movement Cardiovascular: Regular rate, No murmurs Abdomen: Bowel Sounds Present, Soft, Non Tender Extremities: No edema, Capillary Refill Less than 3 Seconds Skin: No rashes, No breakdown Musculoskeletal: No Tenderness to Palpation of Joints or Extremities Neurological: Cranial nerves II-XII grossly intact Psych/Mental Status: Normal Affect, Appropriate Vital Signs Temp Pulse Resp BP Pulse Ox 98.0 F 97 16 132/60 H 97 06/08/18 13:00 06/08/18 13:00 06/08/18 13:00 06/08/18 13:00 06/08/18 13:00 Oxygen Delivery Method Room Air Weight: 176 lb 2.389 oz Body Mass Index (BMI) 29.2 Finger Stick Blood Glucose 193 Intake and Output for Last 24 Hours 06/06/18 06/07/18 06/08/18 23:59 23:59 23:59 Intake Total 823 / 823 1289 / 1289 Balance 823 / 823 1289 / 1289 Laboratory Tests Past 24 Hrs 06/07/18 06/08/18 06/08/18 16:58 05:30 05:30 Hemoglobin A1c 10.0 H Total Bilirubin 0.50 Direct Bilirubin 0.14 AST 11 L ALT 18 Alkaline Phosphatase 102 Troponin I < 0.015 Total Protein 6.2 L Albumin 2.6 L Globulin 3.6 Triglycerides 111 Cholesterol 98 LDL Cholesterol 39 VLDL Cholesterol 22 HDL Cholesterol 37 L TSH 2.52 POC Glucose 06/08/18 06/07/18 06/07/18 06:51 21:40 17:01 POC Glucose 89 87 131 H Discharge Diet: Low fat/ Low Cholesterol, 1800 Calorie Control Diet, 2000 mg Sodium Diet Discharge Activity: Return to Normal Activity Home Medications: Medications to take at Discharge Aspirin E.C. [Ecotrin] 81 mg PO DAILY@0800 06/07/18 Insulin Glargine [Lantus SoloStar Pen] 24 unit SQ DAILY 06/07/18 Insulin Lispro [Humalog KwikPen] 8 unit SQ DAILY 06/07/18 Lisinopril [Zestril] 10 mg PO BID 06/07/18 Atorvastatin Calcium [Lipitor] 80 mg PO QHS #30 tablet 06/08/18 Clopidogrel Bisulfate [Plavix] 75 mg PO DAILY #30 tablet 06/08/18 Following Prescrptions Were Given to Patient: Atorvastatin Calcium [Lipitor] 80 mg PO QHS #30 tablet Clopidogrel Bisulfate [Plavix] 75 mg PO DAILY #30 tablet Other Amb Orders: 30-Day Event Recorder [[facility]] Location: None Selected Primary Care Physician: Petros Gambino MD [Primary Care Provider] - Please follow up with your Primary Care Physician in: 1-2 weeks Please Follow Up With: Rylan Khan MD When: 2 weeks Please Follow Up With: Miguel Kerr MD When: Call for appointment Disposition: Home Minutes spent on discharge:: 35 Patient Condition:: Stable Medical Necessity - Tobacco Use Smoking Status: Never smoker Tobacco Use: Non-smoker Meaningful Use Info Meaningful Use Diagnoses (Choose all that apply): Ischemic CVA - CVA Therapy Assessed for PT,OT and/or ST?: Yes - Ischemic Stroke Antithrombotic order at d/c?: Yes Dx of Atrial fib/flutter?: No Statins at discharge?: Yes Primary Dx Acute Ischemic CVA?: Yes IV tPA ordered during stay?: No Reason IV t-PA not ordered: Treatment not Indicated
== END 2018-06-08 13:29 | disposition home or self-care (01) ==
LOC: ED 14:12 → PCU 15:44
PROVIDERS: Admitting Provider Internal Medicine; Emergency Provider Emergency Medicine; Family Provider Family Medicine; PCP Family Medicine; Visit Provider Internal Medicine
DX: I63.9 Cerebral infarction, unspecified (principal); I25.10 Atherosclerotic heart disease of native coronary artery without angina pectoris; E11.22 Type 2 diabetes mellitus with diabetic chronic kidney disease; I12.9 Hypertensive chronic kidney disease with stage 1 through stage 4 chronic kidney disease, or unspecified chronic kidney disease; N18.3 Chronic kidney disease, stage 3 (moderate); I48.91 Unspecified atrial fibrillation; Z95.1 Presence of aortocoronary bypass graft; Z79.4 Long term (current) use of insulin; Z79.82 Long term (current) use of aspirin; Z79.899 Other long term (current) drug therapy; E78.5 Hyperlipidemia, unspecified; R53.1 Weakness; R26.2 Difficulty in walking, not elsewhere classified; R20.0 Anesthesia of skin; D64.9 Anemia, unspecified; R47.81 Slurred speech; I07.1 Rheumatic tricuspid insufficiency; E11.65 Type 2 diabetes mellitus with hyperglycemia
CPT/HCPCS: 36415; 70450; 70544; 70547; 70551; 71045; 80048; 80061; 80076; 82962; 83036; 84443; 84484; 85025; 85610; 85730; 92523; 92610; 93005; 93306; 96360; 96361; 97161; 97165; 97802; 99218; 99285; J7030; Q9957; A4216; C8929; G0378

== ENCOUNTER 2018-06-08 19:25 | Inpatient (IN) | payer MEDICARE, OTHER, SELFPAY ==
[2018-06-08] VITALS (9 sets, daily range): BP systolic 135–186; BP diastolic 60–84; PULSE 58–74; RESP 15–18; TEMP 36.6–36.8; O2SAT 95–100; BMI 29.1; BMI 30.4; BMI 29.0
--- NOTE | 2018-06-08 19:33 | EKG12_ITS ---
Test Reason : STROKE SYMPTOMS Blood Pressure : / mmHG Vent. Rate : 067 BPM Atrial Rate : 067 BPM P-R Int : 170 ms QRS Dur : 096 ms QT Int : 410 ms P-R-T Axes : 045 -02 142 degrees QTc Int : 433 ms Normal sinus rhythm Inferior infarct , age undetermined T wave abnormality, consider lateral ischemia Abnormal ECG Confirmed by MAK CAMERON, TWILA ([id number]), pictures editor YUMIKO TELLEZ ([id number]) on 06/14/2018 11:32:07 AM Referred By: JOSE Confirmed By:TWILA CORADO MD
--- NOTE | 2018-06-08 19:33 | CT_ITS ---
STUDY: CT BRAIN WITHOUT CONTRAST REASON FOR EXAM: Female, 72 years old. Slurred speech and right-sided weakness RADIATION DOSAGE (If Supplied By Facility): CTDIvol = ( 44.99 ) mGy, DLP = ( 779.24 ) mGycm TECHNIQUE: Transaxial CT imaging of the brain was performed without administration of intravenous contrast material. Individualized dose optimization techniques were used for this CT. COMPARISON: Prior study of June 07, 2018 FINDINGS: Normal soft tissue structures. Normal calvarium. There is mild cerebral atrophy with widening of the extra-axial spaces and ventricular dilatation. There are areas of decreased attenuation within the white matter tracts of the supratentorial brain, consistent with microvascular disease changes. Normal basal ganglia and thalami. Normal brainstem. Normal cerebellum. There is no intracranial hemorrhage. There are no findings of an acute ischemic infarction. There is mucosal thickening of the right sphenoid sinus. CT/Brain/Head without Contrast IMPRESSION: Chronic involutional changes of the brain. Chronic right sphenoid sinusitis. If clinically indicated, MRI may be helpful for further evaluation. Electronically Signed: Mina Rolon MD at 20:00 EST , Service support ,
[2018-06-08 19:46] LABS: Absolute Lymphocyte Count 3.47 X10^3/ul (0.83-4.51); Absolute Neutrophil Count 4.1 X10^3/uL (2.0-7.7); Basophil# 0.03 X10^3/uL; Basophil% 0.4 % (0-1); Eosinophil# 0.24 X10^3/uL; Eosinophils% 2.9 % (0-5); Hematocrit 35.3 % (37-47); Lymphocyte # 3.47 X10^3/ul (4.0); Lymphocyte % 41.5 % (19-41); Mean Corp Hgb Conc 31.2 g/gl (32-36); Mean Corpuscular Hgb 28.9 pg (27.0-32.0); Mean Corpuscular Volume 92.7 fL (81-99); Mean Platelet Vol. 9.7 fl (6.2-12.0); Monocyte# 0.48 X10^3/uL; Monocyte% 5.7 % (0-10); Neutrophil # 4.14 X10^3/uL (2.7-7.7); Neutrophil % 49.4 % (47-70); Platelet Count 255 K/mm3 (150-450); RBC Distribution Width CV 12.9 % (11.6-14.6); RBC Distribution Width SD 43.4 fl (35.1-43.9); Red Blood Count 3.81 M/mm3 (4.2-5.4); White Blood Count 8.4 K/mm3 (4.4-11.0)
[2018-06-08 19:47] LABS: POSITIVE COUNT NO; POSITIVE DIFFERENTIAL NO; POSITIVE MORPHOLOGY NO
--- NOTE | 2018-06-08 19:47 | RAD_ITS ---
STUDY: X-RAY CHEST REASON FOR EXAM: Female, 72 years old. Weakness TECHNIQUE: Single PA view of the chest. COMPARISON: Prior study of June 07, 2018 FINDINGS: security monitor leads are seen. The lungs are clear and expanded. There is no demonstrated pleural abnormality. The heart size is within normal limits. Status post sternotomy changes are present. There is a small hiatal hernia. Normal visualized pulmonary arteries. There are calcified plaques of the aortic arch. Normal visualized thoracic spine. Normal visualized ribs, clavicles, and shoulders. There is no demonstrated abnormality of the visualized soft tissue structures of the upper abdomen. RAD/Chest 1 View IMPRESSION: Status post sternotomy. Small hiatal hernia. Calcified plaques of the aortic arch. No acute cardiopulmonary disease process is seen. Electronically Signed: Mina Rolon MD at 20:03 EST , Service support ,
[2018-06-08 19:55] LABS: International Normalized Ratio 1.1; Prothrombin Time (Protime)PT. 13.9 SECONDS (11.7-14.9)
[2018-06-08 19:56] LABS: Partial Thromboplast Time 28.6 Seconds (24.1-36.2)
[2018-06-08] MEDS: 0.9% Normal Saline 1,000 ML 100 ML IV (19:59)
[2018-06-08 20:09] LABS: Anion Gap 8 (5-15); BUN 29 mg/dL (7-18); BUN/Creat Ratio 14.2 RATIO (10-20); Calcium,Total 9.2 mg/dL (8.5-10.1); Chloride 115 mmol/L (98-107); Creatinine, Serum 2.04 mg/dL (0.55-1.02); EST Glomerular Filtration Rate 25 mL/min (>60); Est Glom Filt Rate - Afr Amer 31 mL/min (>60); Estimated Creatinine Clearance 21.77 ml/min; Glucose 84 mg/dL (74-106); Potassium 4.4 mmol/L (3.5-5.1); Sodium Level 146 mmol/L (136-145)
--- NOTE | 2018-06-08 21:23 | ED.VISSUMM ---
- ER Visit Summary Date of Service: 06/08/18 Chief Complaint: Weakness and speech difficulty History of Present Illness: The patient is a 72 F who was just discharged from the hospital this evening for a TIA. She had symptoms of slurred speech and right-sided weakness. Patient states she got home and had recurrent symptoms lasted approximately 10 minutes and then resolved. Triage nurse noted only a slight right facial droop on her arrival to the ER. On review of her records, patient did just undergo MRI, MRA that revealed evidence of multiple small strokes, presumed embolic. Patient was seen by Dr. Khan earlier today and placed on aspirin and Plavix. Echocardiogram was performed. Report of that study lists negative bubble study but technically difficult exam, trans-esophageal study recommended. Physical Examination: Vital signs on arrival include a blood pressure of 163/84, otherwise normal. Patient is sitting upright in bed no acute distress. Head neck examination is unremarkable. Heart is regular rate and rhythm. Lungs sounds are clear. Abdomen is soft nontender. Neuro exam reveals an NIH score of 0 on my evaluation at 19:30. Test Results: EKG is sinus at 67 with lateral T inversions. This is unchanged when compared to prior study. CT head shows chronic involutional changes. Chronic right sphenoid sinusitis noted. Chest x-ray shows small hiatal hernia with no acute process. CBC was normal white count hemoglobin of 11. Chemistry studies reveal BUN 29 and creatinine 2.04. Coags normal. Troponin is less than 0.015. Emergency Department Course and Treatment: On repeat evaluation patient is resting comfortably. Patient's blood pressure is 135/60 with a heart rate of 62. I spoke with Dr. Khan. He recommended bringing the patient back in and ensuring she had a 30-day event monitor in place. Also obtaining the transesophageal echo to evaluate her valves. Treatment Plan: [] Disposition: Admit Impression: TIA This note was generated with [employer] dictation software. It may contain incorrect words, spelling, and punctuation that were not noted in review of the chart prior to signing ED Disposition - Plan for ED Patient: Referrals: Petros Gambino MD [Primary Care Provider] -
--- NOTE | 2018-06-08 21:28 | HP.PCM_ITS ---
Problem List (1) CVA (cerebral vascular accident) Status: Acute Qualifiers: CVA mechanism: embolism Laterality of affected vessel: unspecified (2) HTN (hypertension) Status: Chronic Qualifiers: Hypertension type: essential hypertension Qualified Code(s): I10 - Essential (primary) hypertension (3) CAD (coronary artery disease) Status: Chronic Qualifiers: Coronary Disease-Associated Artery/Lesion type: unspecified vessel or lesion type [place] vs. transplanted heart: unspecified whether [place] or transplanted heart Associated angina: angina presence unspecified Qualified Code(s): I25.10 - Atherosclerotic heart disease of [place] coronary artery without angina pectoris (4) CKD (chronic kidney disease) stage 3, GFR 30-59 ml/min Status: Chronic (5) Anemia Status: Chronic Qualifiers: Anemia type: unspecified type Qualified Code(s): D64.9 - Anemia, unspecified (6) Type II diabetes mellitus Status: Chronic Qualifiers: Diabetes mellitus prison insulin use: with prison use Diabetes mellitus complication status: with unspecified complications Qualified Code(s): E11.8 - Type 2 diabetes mellitus with unspecified complications; 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 The patient is a 72 y/o F w/ PMHx: CAD, HTN, HLD, Diabetes mellitus type II, Overweight, discharged from [facility] on 06/08/18 following evaluation for R sided weakness, slurred speech and facial droop which resolved w/ MRI brain findings notable for left parietal and occipital lobes concerning for embolic etiology given appearance with unremarkable MRA head and neck w/ ECHO w/ moderate concentric LVH, EF 65%, stage I diastolic dysfunction, bubble contrast study negative for right to left interatrial shunt, trivial TBI, RVSP 38 mmHg, mild pulmonary hypertension, noted technically difficult study with recommended NANCY discharged per Neurology recommendation on asa, plavix, statin, BP regimen who now re-presents to the [facility] following her earlier discharge on 06/08/18 with recurrent right sided weakness, facial droop and slurred speech lasting ~ 10 minutes, onset 1900, resolved by time of ED presentation. Workup in the ED included CBC with WBC 8.4, hemoglobin 11, platelet 255, unremarkable coags, BMP with sodium 146, chloride 115, BUN/Cr 29/2.04, trop < 0.015, EKG without acute evidence of ischemia, CT brain with chronic involutional changes of the brain, chronic right sphenoid sinusitis, chest x-ray with status post sternotomy, small hiatal hernia, calcified plaques of the aortic arch with no acute cardiopulmonary process. Neurology, Dr. Khan consulted per ED and discussed case with requested admission, planned NANCY, continued aspirin and Plavix therapy with again review of the fact that prior CVA MRI evidence concerning for embolic source with planned Holter monitor testing. Past Medical History Past Medical History (Chronic Problems): Chronic Problems HTN (hypertension) (Chronic) CAD (coronary artery disease) (Chronic) CKD (chronic kidney disease) stage 3, GFR 30-59 ml/min (Chronic) Anemia (Chronic) Type II diabetes mellitus (Chronic) Allergies zinc Allergy (Verified 06/08/18 19:39) blisters Home Medications: Ambulatory Orders Medication Instructions Recorded Insulin Glargine [Lantus SoloStar 24 unit SQ DAILY 06/07/18 Pen] Insulin Lispro [Humalog KwikPen] 8 unit SQ DAILY 06/07/18 Lisinopril [Zestril] 10 mg PO BID 06/07/18 Aspirin [Aspir 81] 81 mg PO DAILY 06/08/18 Atorvastatin Calcium [Lipitor] 80 mg PO QHS #30 tablet 06/08/18 Clopidogrel Bisulfate [Plavix] 75 mg PO DAILY #30 tablet 06/08/18 Surgical History: - - CABG, appendectomy. 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 Review of Systems Constitutional: Reports: Weakness, Fatigue. Denies: Chills, Fever, Weight Change HEENT: Denies: Head Aches, Sinus Congestion, Sinus Drainage Cardiovascular: Denies: Chest Pain, Palpitations Respiratory: Denies: Cough, Shortness of breath at rest, Sputum production Gastrointestinal: Denies: Abdominal Pain, Nausea, Vomiting Genitourinary: Denies: Dysuria Musculoskeletal: Denies: Joint Pain, Joint Tenderness Skin: Denies: Rash, Wounds Neurological: Reports: Slurred speech, Focal weakness. Denies: Numbness, Tingling Psychiatric: Denies: Anxiety, Depression, Homicidal Ideations, Suicidal Ideations Hematologic/ Lymphatic: Denies: Easy Bruising, Easy Bleeding VTE Information - Inpt Only VTE Present on Admission: No VTE Mechan Device Prophylaxis: SCD's VTE Pharm Prophylaxis ordered?: Yes Subjective: Patient seated upright in ED bed, no acute distress, notes completely resolved symptoms since presentation to ED. Objective: Physical Examination: General: awake, alert, oriented x 3 and cooperative, seated upright in the ED bed in no apparent distress. Skin: normal color, turgor, no icterus, cyanosis. HEENT: AT/NC, EOMI, PERRLA, MMM, no carotid bruits or JVD noted. Lungs: CTA bilaterally, moderate effort, mild decrease BL bases, no rales, ronchi or wheezing. Heart: regular rate and rhythm; no gallop, rub audible. Abdomen: soft, overweight, NTTP, ND, normal BS, no HSM. Extremities: no cyanosis, clubbing, BL LE ankle edema. Neurological: patient awake, alert, oriented x 3; cognitive function intact; pupils equally reactive to light and accomodation; cranial nerves II-XII grossly normal, moving all 4 extremities, no focal deficits, strength preserved, sensation intact, Babinski negative, FTN and HTS appropriate. Psychiatric: affect appears normal, no acute evidence of depressive or anxiety feelings. - Physical Exam Vital Signs Temp Pulse Resp BP Pulse Ox 97.9 F 62 15 135/60 H 96 06/08/18 19:26 06/08/18 20:55 06/08/18 20:55 06/08/18 20:55 06/08/18 20:55 Oxygen Delivery Method Room Air Weight: 183 lb 3.266 oz Body Mass Index (BMI) 30.4 Finger Stick Blood Glucose 86 Laboratory Tests Past 24 Hrs 06/08/18 06/08/18 06/08/18 19:30 19:30 19:30 WBC 8.4 RBC 3.81 L Hgb 11.0 L Hct 35.3 L MCV 92.7 MCH 28.9 MCHC 31.2 L RDW 12.9 RDW Differential 43.4 Plt Count 255 MPV 9.7 Immature Gran % (Auto) 0.100 Neut % (Auto) 49.4 Lymph % (Auto) 41.5 H [place] % (Auto) 5.7 Eos % (Auto) 2.9 Baso % (Auto) 0.4 Absolute Neuts (auto) 4.1 Absolute Lymphs (auto) 3.47 Total Counted Not Reportable PT 13.9 INR 1.1 APTT 28.6 Sodium 146 H Potassium 4.4 Chloride 115 H Carbon Dioxide 23.0 Anion Gap 8 BUN 29 H Creatinine 2.04 H Estim Creat Clear Calc 21.77 Est GFR (MDRD) Af Amer 31 L Est GFR (MDRD) Non-Af 25 L BUN/Creatinine Ratio 14.2 Glucose 84 Calcium 9.2 Troponin I < 0.015 Assessment/Plan All Active Problems CVA (cerebral vascular accident) (Acute) The patient is a 72 y/o F w/ PMHx: CAD, HTN, HLD, Diabetes mellitus type II, Overweight, discharged from [facility] on 06/08/18 following evaluation for R sided weakness, slurred speech and facial droop which resolved w/ MRI brain findings notable for left parietal and occipital lobes concerning for embolic etiology given appearance with unremarkable MRA head and neck w/ ECHO w/ moderate concentric LVH, EF 65%, stage I diastolic dysfunction, bubble contrast study negative for right to left interatrial shunt, trivial TBI, RVSP 38 mmHg, mild pulmonary hypertension, noted technically difficult study with recommended NANCY discharged per Neurology recommendation on asa, plavix, statin, BP regimen who now re-presents to the [facility] following her earlier discharge on 06/08/18 with recurrent right sided weakness, facial droop and slurred speech lasting ~ 10 minutes, onset 1900. (1) Right Sided Transient Hemiplegia, Facial Droop, Slurred Speech w/ Recent Acute Embolic Appearing Small Punctate left parietal and occipital lobes CVA: Recent evaluation w/ MRI brain findings notable for left parietal and occipital lobes concerning for embolic etiology given appearance with unremarkable MRA head and neck w/ ECHO w/ moderate concentric LVH, EF 65%, stage I diastolic dysfunction, bubble contrast study negative for right to left interatrial shunt, trivial TBI, RVSP 38 mmHg, mild pulmonary hypertension, noted technically difficult study with recommended NANCY discharged per Neurology recommendation on asa, plavix, statin, BP regimen. Recent ED evaluation with unremarkable labs, CT Head and CXR. Will admit to PCU, will maintain NPO after midnight for planned NANCY per Neurology request, PT/OT/Speech/Nutrition evaluation per protocol, pending Neurology for re-evaluation. Given resolution of symptoms will continue BP regimen, maintain on asa, plavix, statin, fall precautions. Mag normal. Recent TSH normal. 30 day event requested. (2) Diabetes mellitus type II, Poorly controlled: Recent admission HgbA1c 10%, continue home insulin regimen w/ adjustments to achieve BS < 140, ADA diet, accu checks w/ ISS. (3) CAD: s/p CABG, continue asa, plavix, statin regimen, not on BB therapy. (4) CKD stage III: Admission BUN/Cr 29/2.04, similar to prior, stable, trend. (5) Hypertension: Continue home regimen including lisinopril, PRN hydralazine. (6) Hyperlipidemia: Continue home statin regimen. Recent FLP w/ triglycerides 111, total cholesterol 98, LDL 39, VLDL 22, HDL 37. (7) Overweight: Weight loss and lifestyle changes encouraged. (8) DVT Prophylaxis: SCDs, heparin. Code Visit OBSV E&M: 07700 Initial observation care L3
[2018-06-08 22:49] LABS: Magnesium 1.9 mg/dL (1.6-2.6)
[2018-06-09] VITALS (16 sets, daily range): BP systolic 136–179; BP diastolic 60–91; PULSE 52–70; RESP 16–18; TEMP 36.3–36.9; O2SAT 95–98; BMI 29.0
[2018-06-09 02:51] LABS: Bedside Glucose 96 mg/dL (70-110)
[2018-06-09] MEDS: 0.9% NaCl Peripheral Flush Adult/Peds IV (06:29)
[2018-06-09 07:11] LABS: Bedside Glucose 81 mg/dL (70-110)
--- NOTE | 2018-06-09 09:47 | CASEMGMT ---
Patient has a Healthcare POA and Healthcare LW. They are in her E-chart. Copies printed and placed in her paper chart. Her , Leonidas is her POA. They are from 2003 so SW spoke with patient and confirmed her is her POA. Jenn MENDOZA MSW
--- NOTE | 2018-06-09 10:20 | CASEMGMT ---
MERLY gave patient a list of medical alert button systems per her request. MERLY told her about [facility]'s one we offer. MERLY also told her if she has access to the internet she could look online as there are many more. She thanked MERLY for the information. Jenn MENDOZA MSW
[2018-06-09 11:26] LABS: Bedside Glucose 114 mg/dL (70-110)
--- NOTE | 2018-06-09 11:34 | PCM.CONS.GEN ---
Reason for Consult Date of Consultation: 06/09/18 Reason for Consultation: right sided weakness and aphasia, recurrent History of Present Illness: The patient is a 72 year old female discharged from hospital yesterday, recurrent exact same symptoms lasting 10min, now baseline. MRI yesterday showed ONLY LEFT HEMISPHERE punctate acute infarcts. interpreted by radiology as cardioembolic, initially eliquis started then dc'e home on asa and plavix. no trigger. reports prior to the event yesterday she felt lightheaded, nausea, diaphoretic. per admit note:The patient is a 72 y/o F w/ PMHx: CAD, HTN, HLD, Diabetes mellitus type II, Overweight, discharged from [facility] on 06/08/18 following evaluation for R sided weakness, slurred speech and facial droop which resolved w/ MRI brain findings notable for left parietal and occipital lobes concerning for embolic etiology given appearance with unremarkable MRA head and neck w/ ECHO w/ moderate concentric LVH, EF 65%, stage I diastolic dysfunction, bubble contrast study negative for right to left interatrial shunt, trivial TBI, RVSP 38 mmHg, mild pulmonary hypertension, noted technically difficult study with recommended NANCY discharged per Neurology recommendation on asa, plavix, statin, BP regimen who now re-presents to the [facility] following her earlier discharge on 06/08/18 with recurrent right sided weakness, facial droop and slurred speech lasting ~ 10 minutes, onset 1900, resolved by time of ED presentation. Workup in the ED included CBC with WBC 8.4, hemoglobin 11, platelet 255, unremarkable coags, BMP with sodium 146, chloride 115, BUN/Cr 29/2.04, trop < 0.015, EKG without acute evidence of ischemia, CT brain with chronic involutional changes of the brain, chronic right sphenoid sinusitis, chest x-ray with status post sternotomy, small hiatal hernia, calcified plaques of the aortic arch with no acute cardiopulmonary process. Neurology, Dr. Khan consulted per ED and discussed case with requested admission, planned NANCY, continued aspirin and Plavix therapy with again review of the fact that prior CVA MRI evidence concerning for embolic source with planned Holter monitor testing. Past Medical History Past Medical History (Chronic Problems): Chronic Problems HTN (hypertension) (Chronic) CAD (coronary artery disease) (Chronic) CKD (chronic kidney disease) stage 3, GFR 30-59 ml/min (Chronic) Anemia (Chronic) Type II diabetes mellitus (Chronic) Allergies zinc Allergy (Verified 06/08/18 19:39) blisters Home Medications: Ambulatory Orders Medication Instructions Recorded Insulin Glargine [Lantus SoloStar 24 unit SQ DAILY 06/07/18 Pen] Insulin Lispro [Humalog KwikPen] 8 unit SQ DAILY 06/07/18 Lisinopril [Zestril] 10 mg PO BID 06/07/18 Aspirin [Aspir 81] 81 mg PO DAILY 06/08/18 Atorvastatin Calcium [Lipitor] 80 mg PO QHS #30 tablet 06/08/18 Clopidogrel Bisulfate [Plavix] 75 mg PO DAILY #30 tablet 06/08/18 Surgical History: - - CABG, appendectomy. 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 Review of Systems Constitutional: Reports: Anorexia HEENT: Denies: Difficulty Hearing, Difficulty Swallowing Cardiovascular: Denies: Chest Pain Respiratory: Denies: Cough - Physical Exam Vital Signs Temp Pulse Resp BP Pulse Ox 36.7 C 63 18 144/68 H 97 06/09/18 09:55 06/09/18 10:56 06/09/18 09:55 06/09/18 09:55 06/09/18 09:55 Oxygen Delivery Method Room Air Weight: 79 kg Body Mass Index (BMI) 29.0 Finger Stick Blood Glucose 86 Intake and Output for Last 24 Hours 06/07/18 06/08/18 06/09/18 23:59 23:59 23:59 Intake Total 377 / 377 Balance 377 / 377 Laboratory Tests Past 24 Hrs 06/08/18 06/08/18 06/08/18 19:30 19:30 19:30 WBC 8.4 RBC 3.81 L Hgb 11.0 L Hct 35.3 L MCV 92.7 MCH 28.9 MCHC 31.2 L RDW 12.9 RDW Differential 43.4 Plt Count 255 MPV 9.7 Immature Gran % (Auto) 0.100 Neut % (Auto) 49.4 Lymph % (Auto) 41.5 H [place] % (Auto) 5.7 Eos % (Auto) 2.9 Baso % (Auto) 0.4 Absolute Neuts (auto) 4.1 Absolute Lymphs (auto) 3.47 Total Counted Not Reportable PT 13.9 INR 1.1 APTT 28.6 Sodium 146 H Potassium 4.4 Chloride 115 H Carbon Dioxide 23.0 Anion Gap 8 BUN 29 H Creatinine 2.04 H Estim Creat Clear Calc 21.77 Est GFR (MDRD) Af Amer 31 L Est GFR (MDRD) Non-Af 25 L BUN/Creatinine Ratio 14.2 Glucose 84 Calcium 9.2 Magnesium Troponin I < 0.015 06/08/18 19:30 WBC RBC Hgb Hct MCV MCH MCHC RDW RDW Differential Plt Count MPV Immature Gran % (Auto) Neut % (Auto) Lymph % (Auto) [place] % (Auto) Eos % (Auto) Baso % (Auto) Absolute Neuts (auto) Absolute Lymphs (auto) Total Counted PT INR APTT Sodium Potassium Chloride Carbon Dioxide Anion Gap BUN Creatinine Estim Creat Clear Calc Est GFR (MDRD) Af Amer Est GFR (MDRD) Non-Af BUN/Creatinine Ratio Glucose Calcium Magnesium 1.9 Troponin I POC Glucose 06/09/18 06/09/18 06/09/18 11:18 06:56 02:35 POC Glucose 114 H 81 96 Assessment/Plan All Active Problems CVA (cerebral vascular accident) (Acute)
--- NOTE | 2018-06-09 11:38 | CON.PCM_ITS ---
Reason for Consult Date of Consultation: 06/09/18 Reason for Consultation: right sided weakness and aphasia, recurrent History of Present Illness: The patient is a 72 year old female discharged from hospital yesterday, recurrent exact same symptoms lasting 10min, now baseline. MRI yesterday showed ONLY LEFT HEMISPHERE punctate acute infarcts. interpreted by radiology as cardioembolic, initially eliquis started then dc'e home on asa and plavix. no trigger. reports prior to the event yesterday she felt lightheaded, nausea, diaphoretic. per admit note:The patient is a 72 y/o F w/ PMHx: CAD, HTN, HLD, Diabetes mellitus type II, Overweight, discharged from [facility] on 06/08/18 following evaluation for R sided weakness, slurred speech and facial droop which resolved w/ MRI brain findings notable for left parietal and occipital lobes concerning for embolic etiology given appearance with unremarkable MRA head and neck w/ ECHO w/ moderate concentric LVH, EF 65%, stage I diastolic dysfunction, bubble contrast study negative for right to left interatrial shunt, trivial TBI, RVSP 38 mmHg, mild pulmonary hypertension, noted technically difficult study with recommended NANCY discharged per Neurology recommendation on asa, plavix, statin, BP regimen who now re-presents to the [facility] following her earlier discharge on 06/08/18 with recurrent right sided weakness, facial droop and slurred speech lasting ~ 10 minutes, onset 1900, resolved by time of ED presentation. Workup in the ED included CBC with WBC 8.4, hemoglobin 11, platelet 255, unremarkable coags, BMP with sodium 146, chloride 115, BUN/Cr 29/2.04, trop < 0.015, EKG without acute evidence of ischemia, CT brain with chronic involutional changes of the brain, chronic right sphenoid sinusitis, chest x-ray with status post sternotomy, small hiatal hernia, calcified plaques of the aortic arch with no acute cardiopulmonary process. Neurology, Dr. Khan consulted per ED and discussed case with requested admission, planned NANCY, continued aspirin and Plavix therapy with again review of the fact that prior CVA MRI evidence concerning for embolic source with planned Holter monitor testing. Past Medical History Past Medical History (Chronic Problems): Chronic Problems HTN (hypertension) (Chronic) CAD (coronary artery disease) (Chronic) CKD (chronic kidney disease) stage 3, GFR 30-59 ml/min (Chronic) Anemia (Chronic) Type II diabetes mellitus (Chronic) Allergies zinc Allergy (Verified 06/08/18 19:39) blisters Home Medications: Ambulatory Orders Medication Instructions Recorded Insulin Glargine [Lantus SoloStar 24 unit SQ DAILY 06/07/18 Pen] Insulin Lispro [Humalog KwikPen] 8 unit SQ DAILY 06/07/18 Lisinopril [Zestril] 10 mg PO BID 06/07/18 Aspirin [Aspir 81] 81 mg PO DAILY 06/08/18 Atorvastatin Calcium [Lipitor] 80 mg PO QHS #30 tablet 06/08/18 Clopidogrel Bisulfate [Plavix] 75 mg PO DAILY #30 tablet 06/08/18 Surgical History: - - CABG, appendectomy. 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 Review of Systems Constitutional: Reports: Anorexia HEENT: Denies: Difficulty Hearing, Difficulty Swallowing Cardiovascular: Denies: Chest Pain Respiratory: Denies: Cough - Physical Exam Vital Signs Temp Pulse Resp BP Pulse Ox 36.7 C 63 18 144/68 H 97 06/09/18 09:55 06/09/18 10:56 06/09/18 09:55 06/09/18 09:55 06/09/18 09:55 Oxygen Delivery Method Room Air Weight: 79 kg Body Mass Index (BMI) 29.0 Finger Stick Blood Glucose 86 Intake and Output for Last 24 Hours 06/07/18 06/08/18 06/09/18 23:59 23:59 23:59 Intake Total 377 / 377 Balance 377 / 377 Laboratory Tests Past 24 Hrs 06/08/18 06/08/18 06/08/18 19:30 19:30 19:30 WBC 8.4 RBC 3.81 L Hgb 11.0 L Hct 35.3 L MCV 92.7 MCH 28.9 MCHC 31.2 L RDW 12.9 RDW Differential 43.4 Plt Count 255 MPV 9.7 Immature Gran % (Auto) 0.100 Neut % (Auto) 49.4 Lymph % (Auto) 41.5 H [place] % (Auto) 5.7 Eos % (Auto) 2.9 Baso % (Auto) 0.4 Absolute Neuts (auto) 4.1 Absolute Lymphs (auto) 3.47 Total Counted Not Reportable PT 13.9 INR 1.1 APTT 28.6 Sodium 146 H Potassium 4.4 Chloride 115 H Carbon Dioxide 23.0 Anion Gap 8 BUN 29 H Creatinine 2.04 H Estim Creat Clear Calc 21.77 Est GFR (MDRD) Af Amer 31 L Est GFR (MDRD) Non-Af 25 L BUN/Creatinine Ratio 14.2 Glucose 84 Calcium 9.2 Magnesium Troponin I < 0.015 06/08/18 19:30 WBC RBC Hgb Hct MCV MCH MCHC RDW RDW Differential Plt Count MPV Immature Gran % (Auto) Neut % (Auto) Lymph % (Auto) [place] % (Auto) Eos % (Auto) Baso % (Auto) Absolute Neuts (auto) Absolute Lymphs (auto) Total Counted PT INR APTT Sodium Potassium Chloride Carbon Dioxide Anion Gap BUN Creatinine Estim Creat Clear Calc Est GFR (MDRD) Af Amer Est GFR (MDRD) Non-Af BUN/Creatinine Ratio Glucose Calcium Magnesium 1.9 Troponin I POC Glucose 06/09/18 06/09/18 06/09/18 11:18 06:56 02:35 POC Glucose 114 H 81 96 Assessment/Plan All Active Problems CVA (cerebral vascular accident) (Acute)
--- NOTE | 2018-06-09 11:42 | MRI_ITS ---
STUDY: MRI BRAIN WITHOUT CONTRAST REASON FOR EXAM: Female, 72 years old. CVA and right-sided weakness TECHNIQUE: Standardized multiplanar fat and water weighted pulse sequences were obtained. Motion limited exam. COMPARISON: June 08, 2018 CT brain and MR brain June 07, 2018 FINDINGS: There is mild cerebral atrophy with widening of the extra-axial spaces and ventricular dilatation. There are multiple white matter hyperintensities, distributed throughout the deep white matter tracts of the cerebral hemispheres, consistent with moderate chronic white matter ischemic changes. Multiple punctate foci of restricted diffusion are again noted in the left parietal and occipital lobes although somewhat less intense. Normal bilateral basal ganglia. Normal thalami. There is no extra-axial fluid accumulation. Normal flow voids within the major intracranial circulation suggesting patency by spin echo criteria. Normal sella turcica, pituitary gland, infundibular stalk, optic chiasm and hypothalamus. Normal tectal plate and pineal gland. Normal midbrain, ramiro and medulla. Normal cerebellum. Normal basal cisterns. Normal bilateral temporal bones. Normal bilateral internal auditory canals. No demonstrated orbital abnormality, within the constraints of a routine brain study. Fluid signal in the right sphenoid sinus. Normal calvarium and skull base. Normal visualized soft tissue structures. Normal visualized upper cervical spine. MRI/Brain without Contrast IMPRESSION: Multiple subacute embolic infarcts left posterior cerebral artery watershed territory demonstrating interval evolution/resolution. Electronically Signed: Ebenezer Bustillos MD at 19:24 EST , Service support ,
[2018-06-09] MEDS: Clopidogrel Bisulfate 75 MG Tablet PO (12:00)
[2018-06-09] MEDS: Lisinopril 10 MG Tablet PO ×2 (12:00→21:10)
[2018-06-09] MEDS: Heparin Injection (Vial) 5,000 UNIT/ML VIAL 5000 UNIT SC ×2 (12:00→21:09)
[2018-06-09] MEDS: Aspirin E.C. 81 MG Tablet PO (12:00)
--- NOTE | 2018-06-09 14:12 | PCM.PN.HOSP ---
Subjective: Patient seen and examined. She was admitted on 06/08/2018 with a complaint of recurrent right-sided weakness, facial droop and slurred speech which lasted about 10 minutes and onset was about 7 PM. I had resolved by the time he came to the ED. Of note, patient was discharged on June 08, 2018 after she was admitted for right-sided weakness, slurred speech and facial droop which subsequently resolved. MRI findings were significant for left parietal and occipital lobes concerning for embolic etiology given appearance with an unremarkable MRA of the head and neck. Echo done during previous admission showed EF of 65% with moderate concentric left ventricular hypertrophy, stage I diastolic dysfunction and bubble study was negative. At home and symptoms recurred so she came back to the hospital. She had been discharged on aspirin and Plavix and was to have a 30-day Holter monitor done. She is being managed for CVA and had a NANCY today. She had no complaints at time of review. [place] well and not had any weakness or slurred speech overnight. She did admit to some difficulty with finding words. Review of systems otherwise negative. She denied any weakness in any extremity. Labs and vitals reviewed. Vitals/I&O's: Vital Signs Temp Pulse Resp BP Pulse Ox 97.9 F 66 18 152/60 H 96 06/09/18 13:54 06/09/18 13:54 06/09/18 13:54 06/09/18 13:54 06/09/18 13:54 Oxygen Delivery Method Room Air Weight: 174 lb 2.643 oz Body Mass Index (BMI) 29.0 Finger Stick Blood Glucose 86 Intake and Output for Last 24 Hours 06/07/18 06/08/18 06/09/18 23:59 23:59 23:59 Intake Total 713 / 713 Balance 713 / 713 General: Alert, Oriented x3, Cooperative, No apparent distress HEENT: Atraumatic, PERRLA, EOMI, Normocephalic Oral: Moist Mucosa Neck: Supple, No JVD, Negative Carotid Bruits Lungs: Clear to auscultation, Normal air movement, No rhonchi, No wheeze, No rales Cardiovascular: Regular rate, Regular Rhythm, Normal S1, Normal S2, No murmurs Abdomen: Bowel Sounds Present, Soft, Non Tender, Non-Distended, No Hepato-splenomegaly Extremities: No clubbing, No cyanosis, No edema, Capillary Refill Less than 3 Seconds Skin: No rashes, No breakdown Musculoskeletal: No Tenderness to Palpation of Joints or Extremities Lymphatic: No Cervical, Supraclavicular, or Inguinal Adenopathy Neurological: - - very mild right facial droop, neurological examination otherwise normal Psych/Mental Status: Normal Affect, Appropriate, Alert and oriented to time, place, person, mood and affect Laboratory Results 06/08/18 19:30: WBC 8.4, RBC 3.81 L, Hgb 11.0 L, Hct 35.3 L, MCV 92.7, MCH 28.9, MCHC 31.2 L, RDW 12.9, RDW Differential 43.4, Plt Count 255, MPV 9.7, Immature Gran % (Auto) 0.100, Neut % (Auto) 49.4, Lymph % (Auto) 41.5 H, [place] % (Auto) 5.7, Eos % (Auto) 2.9, Baso % (Auto) 0.4, Absolute Neuts (auto) 4.1, Absolute Lymphs (auto) 3.47, Total Counted Not Reportable 06/08/18 19:30: PT 13.9, INR 1.1, APTT 28.6 06/08/18 19:30: Sodium 146 H, Potassium 4.4, Chloride 115 H, Carbon Dioxide 23.0, Anion Gap 8, BUN 29 H, Creatinine 2.04 H, Estim Creat Clear Calc 21.77, Est GFR (MDRD) Af Amer 31 L, Est GFR (MDRD) Non-Af 25 L, BUN/Creatinine Ratio 14.2, Glucose 84, Calcium 9.2, Troponin I < 0.015 06/08/18 19:30: Magnesium 1.9 06/09/18 02:35: POC Glucose 96 06/09/18 06:56: POC Glucose 81 06/09/18 11:18: POC Glucose 114 H Diagnostic Data Brain CT 06/08/18 19:33 IMPRESSION: Chronic involutional changes of the brain. Chronic right sphenoid sinusitis. If clinically indicated, MRI may be helpful for further evaluation. Electronically Signed: Mina Rolon MD at 20:00 EST , Service support , Chest X-Ray 06/08/18 19:47 IMPRESSION: Status post sternotomy. Small hiatal hernia. Calcified plaques of the aortic arch. No acute cardiopulmonary disease process is seen. Electronically Signed: Mina Rolon MD at 20:03 EST , Service support , Current Medications Acetaminophen (Tylenol) 650 mg PO Q6H PRN PRN PRN Reason: Non-cardiac pain (mod-severe) Al Hydroxide/Mg Hydroxide (Mylanta Ii) 30 ml PO Q6H PRN PRN PRN Reason: Gastric burning Aspirin (Ecotrin) 81 mg PO DAILY [facility] Last Admin: 06/09/18 12:00 Dose: 81 mg Atorvastatin Calcium (Lipitor) 80 mg PO QHS [facility] Clopidogrel Bisulfate (Plavix) 75 mg PO DAILY [facility] Last Admin: 06/09/18 12:00 Dose: 75 mg Heparin Sodium (Porcine) (Heparin Na) 5,000 unit SC Q12 [facility] Last Admin: 06/09/18 12:00 Dose: 5,000 unit Hydralazine HCl (Apresoline Iv) 10 mg IV Q4H PRN PRN PRN Reason: SBP > 160 Insulin Glargine (Lantus (Bkc)) 24 units SC DAILY [facility] Last Admin: 06/09/18 12:01 Dose: 24 units Insulin Human Lispro (Humalog Kwikpen (Bkc)) 8 unit SC DAILY@0700 [facility] Last Admin: 06/09/18 07:44 Dose: Not Given Insulin Human Lispro (Humalog Kwikpen (Bkc)) 0 unit SC ACHS [facility]; Protocol Last Admin: 06/09/18 11:24 Dose: Not Given Lisinopril (Zestril) 10 mg PO BID [facility] Last Admin: 06/09/18 12:00 Dose: 10 mg Magnesium Hydroxide (Milk Of Magnesia) 30 ml PO DAILY PRN PRN Reason: Constipation Ondansetron HCl (Zofran) 4 mg IV Q8H PRN PRN PRN Reason: NAUSEA/VOMITING Sodium Chloride () 5 - 15 ml IV UD PRN PRN Reason: SALINE FLUSH Last Admin: 06/09/18 06:29 Dose: 10 ml Medical Necessity - Tobacco Use Smoking Status: Never smoker Tobacco Use: Non-smoker Assessment/Plan All Active Problems CVA (cerebral vascular accident) (Acute) 1. RIght sided CVA recently admitted for right sided CVA withMRI showing left parietal and occipital lobes small punctate lesions. 2D echo showed moderate LV concentric hypertrophy, EF of 65%, stage 1 diastolic dysfunction was discharged on aspirin and plavix and came back with these symptoms. was due to have 30 day holter monitor placed during previous admission, neurology wasnt in favour of giving eliquis as was suggested o/a of suspicion of paroxysmal afib NANCY ordered. awaiting reading. continue aspirin and plavix Is on a intensity statin. PT OT on board. Fall precautions will discuss starting oral anticoagulant with neurology after NANCY reading is reviewed 2. Diabetes mellitus: A1C is 10. Continue home dose of insulin. Insulin sliding scale. Actos AC at bedtime. Calorie controlled diet 3. Hypertension: Continue lisinopril. Hydralazine. 4. Hyperlipidemia: On statin 5. CAD status post CABG: On aspirin, Plavix and statin 6. CKD 3: stable. Cr is 2.04 7. Hyponatremia: Mild. Sodium is 146. Will monitor. Prophylaxis: SCDs. Heparin Code Visit OBSV E&M: 31840 Subsequent observation care L3
--- NOTE | 2018-06-09 14:26 | PN_ITS ---
Subjective: Patient seen and examined. She was admitted on 06/08/2018 with a complaint of recurrent right-sided weakness, facial droop and slurred speech which lasted about 10 minutes and onset was about 7 PM. I had resolved by the time he came to the ED. Of note, patient was discharged on June 08, 2018 after she was admitted for right-sided weakness, slurred speech and facial droop which subsequently resolved. MRI findings were significant for left parietal and occipital lobes concerning for embolic etiology given appearance with an unremarkable MRA of the head and neck. Echo done during previous admission showed EF of 65% with moderate concentric left ventricular hypertrophy, stage I diastolic dysfunction and bubble study was negative. At home and symptoms recurred so she came back to the hospital. She had been discharged on aspirin and Plavix and was to have a 30-day Holter monitor done. She is being managed for CVA and had a NANCY today. She had no complaints at time of review. [place] well and not had any weakness or slurred speech overnight. She did admit to some difficulty with finding words. Review of systems otherwise negative. She denied any weakness in any extremity. Labs and vitals reviewed. Vitals/I&O's: Vital Signs Temp Pulse Resp BP Pulse Ox 97.9 F 66 18 152/60 H 96 06/09/18 13:54 06/09/18 13:54 06/09/18 13:54 06/09/18 13:54 06/09/18 13:54 Oxygen Delivery Method Room Air Weight: 174 lb 2.643 oz Body Mass Index (BMI) 29.0 Finger Stick Blood Glucose 86 Intake and Output for Last 24 Hours 06/07/18 06/08/18 06/09/18 23:59 23:59 23:59 Intake Total 713 / 713 Balance 713 / 713 General: Alert, Oriented x3, Cooperative, No apparent distress HEENT: Atraumatic, PERRLA, EOMI, Normocephalic Oral: Moist Mucosa Neck: Supple, No JVD, Negative Carotid Bruits Lungs: Clear to auscultation, Normal air movement, No rhonchi, No wheeze, No rales Cardiovascular: Regular rate, Regular Rhythm, Normal S1, Normal S2, No murmurs Abdomen: Bowel Sounds Present, Soft, Non Tender, Non-Distended, No Hepato- splenomegaly Extremities: No clubbing, No cyanosis, No edema, Capillary Refill Less than 3 Seconds Skin: No rashes, No breakdown Musculoskeletal: No Tenderness to Palpation of Joints or Extremities Lymphatic: No Cervical, Supraclavicular, or Inguinal Adenopathy Neurological: - - very mild right facial droop, neurological examination otherw ise normal Psych/Mental Status: Normal Affect, Appropriate, Alert and oriented to time, place, person, mood and affect Laboratory Results 06/08/18 19:30: WBC 8.4, RBC 3.81 L, Hgb 11.0 L, Hct 35.3 L, MCV 92.7, MCH 28.9, MCHC 31.2 L, RDW 12.9, RDW Differential 43.4, Plt Count 255, MPV 9.7, Immature Gran % (Auto) 0.100, Neut % (Auto) 49.4, Lymph % (Auto) 41.5 H, [place] % (Auto) 5.7, Eos % (Auto) 2.9, Baso % (Auto) 0.4, Absolute Neuts (auto) 4.1, Absolute Lymphs (auto) 3.47, Total Counted Not Reportable 06/08/18 19:30: PT 13.9, INR 1.1, APTT 28.6 06/08/18 19:30: Sodium 146 H, Potassium 4.4, Chloride 115 H, Carbon Dioxide 23.0, Anion Gap 8, BUN 29 H, Creatinine 2.04 H, Estim Creat Clear Calc 21.77, Est GFR (MDRD) Af Amer 31 L, Est GFR (MDRD) Non-Af 25 L, BUN/Creatinine Ratio 14.2, Glucose 84, Calcium 9.2, Troponin I < 0.015 06/08/18 19:30: Magnesium 1.9 06/09/18 02:35: POC Glucose 96 06/09/18 06:56: POC Glucose 81 06/09/18 11:18: POC Glucose 114 H Diagnostic Data Brain CT 06/08/18 19:33 IMPRESSION: Chronic involutional changes of the brain. Chronic right sphenoid sinusitis. If clinically indicated, MRI may be helpful for further evaluation. Electronically Signed: Mina Rolon MD at 20:00 EST , Service support , Chest X-Ray 06/08/18 19:47 IMPRESSION: Status post sternotomy. Small hiatal hernia. Calcified plaques of the aortic arch. No acute cardiopulmonary disease process is seen. Electronically Signed: Mina Rolon MD at 20:03 EST , Service support , Current Medications Acetaminophen (Tylenol) 650 mg PO Q6H PRN PRN PRN Reason: Non-cardiac pain (mod-severe) Al Hydroxide/Mg Hydroxide (Mylanta Ii) 30 ml PO Q6H PRN PRN PRN Reason: Gastric burning Aspirin (Ecotrin) 81 mg PO DAILY [facility] Last Admin: 06/09/18 12:00 Dose: 81 mg Atorvastatin Calcium (Lipitor) 80 mg PO QHS [facility] Clopidogrel Bisulfate (Plavix) 75 mg PO DAILY [facility] Last Admin: 06/09/18 12:00 Dose: 75 mg Heparin Sodium (Porcine) (Heparin Na) 5,000 unit SC Q12 [facility] Last Admin: 06/09/18 12:00 Dose: 5,000 unit Hydralazine HCl (Apresoline Iv) 10 mg IV Q4H PRN PRN PRN Reason: SBP > 160 Insulin Glargine (Lantus (Bkc)) 24 units SC DAILY [facility] Last Admin: 06/09/18 12:01 Dose: 24 units Insulin Human Lispro (Humalog Kwikpen (Bkc)) 8 unit SC DAILY@0700 [facility] Last Admin: 06/09/18 07:44 Dose: Not Given Insulin Human Lispro (Humalog Kwikpen (Bkc)) 0 unit SC ACHS [facility]; Protocol Last Admin: 06/09/18 11:24 Dose: Not Given Lisinopril (Zestril) 10 mg PO BID [facility] Last Admin: 06/09/18 12:00 Dose: 10 mg Magnesium Hydroxide (Milk Of Magnesia) 30 ml PO DAILY PRN PRN Reason: Constipation Ondansetron HCl (Zofran) 4 mg IV Q8H PRN PRN PRN Reason: NAUSEA/VOMITING Sodium Chloride () 5 - 15 ml IV UD PRN PRN Reason: SALINE FLUSH Last Admin: 02/14/19 06:29 Dose: 10 ml Medical Necessity - Tobacco Use Smoking Status: Never smoker Tobacco Use: Non-smoker Assessment/Plan All Active Problems CVA (cerebral vascular accident) (Acute) 1. RIght sided CVA * recently admitted for right sided CVA withMRI showing left parietal and occipital lobes small punctate lesions. * 2D echo showed moderate LV concentric hypertrophy, EF of 65%, stage 1 diastolic dysfunction * was discharged on aspirin and plavix and came back with these symptoms. was due to have 30 day holter monitor placed * during previous admission, neurology wasnt in favour of giving eliquis as was suggested o/a of suspicion of paroxysmal afib * NANCY ordered. awaiting reading. * continue aspirin and plavix * Is on a intensity statin. * PT OT on board. Fall precautions * will discuss starting oral anticoagulant with neurology after NANCY reading is reviewed * 2. Diabetes mellitus: A1C is 10. Continue home dose of insulin. Insulin sliding scale. Actos AC at bedtime. Calorie controlled diet 3. Hypertension: Continue lisinopril. Hydralazine. 4. Hyperlipidemia: On statin 5. CAD status post CABG: On aspirin, Plavix and statin 6. CKD 3: stable. Cr is 2.04 7. Hyponatremia: Mild. Sodium is 146. Will monitor. Prophylaxis: SCDs. Heparin Code Visit OBSV E&M: 53681 Subsequent observation care L3
[2018-06-09 15:31] LABS: Bedside Glucose 89 mg/dL (70-110)
[2018-06-09 17:41] LABS: Bedside Glucose 149 mg/dL (70-110)
[2018-06-09] MEDS: Insulin Lispro 100 UNIT/ML INSULN.PEN SC (21:09)
[2018-06-09] MEDS: Atorvastatin Calcium 80 MG Tablet PO (21:10)
[2018-06-09 21:16] LABS: Bedside Glucose 185 mg/dL (70-110)
[2018-06-10] VITALS (8 sets, daily range): BP systolic 140–159; BP diastolic 61–78; PULSE 60–94; RESP 16–17; TEMP 36.6–37.1; O2SAT 94–98
[2018-06-10 06:27] LABS: Anion Gap 8 (5-15); BUN 29 mg/dL (7-18); BUN/Creat Ratio 14.6 RATIO (10-20); Chloride 115 mmol/L (98-107); Creatinine, Serum 1.98 mg/dL (0.55-1.02); EST Glomerular Filtration Rate 26 mL/min (>60); Est Glom Filt Rate - Afr Amer 32 mL/min (>60); Estimated Creatinine Clearance 22.43 ml/min; Glucose 156 mg/dL (74-106); Potassium 4.9 mmol/L (3.5-5.1); Sodium Level 145 mmol/L (136-145)
[2018-06-10 06:35] LABS: Absolute Lymphocyte Count 2.24 X10^3/ul (0.83-4.51); Absolute Neutrophil Count 3.1 X10^3/uL (2.0-7.7); Basophil# 0.03 X10^3/uL; Basophil% 0.5 % (0-1); Eosinophil# 0.18 X10^3/uL; Hematocrit 33.5 % (37-47); Hemoglobin 10.4 g/dl (12.0-15.0); Lymphocyte # 2.24 X10^3/ul (4.0); Lymphocyte % 37.7 % (19-41); Mean Corpuscular Hgb 29.1 pg (27.0-32.0); Mean Corpuscular Volume 93.6 fL (81-99); Monocyte# 0.41 X10^3/uL; Monocyte% 6.9 % (0-10); Neutrophil # 3.07 X10^3/uL (2.7-7.7); Neutrophil % 51.7 % (47-70); Platelet Count 226 K/mm3 (150-450); RBC Distribution Width CV 12.4 % (11.6-14.6); RBC Distribution Width SD 40.9 fl (35.1-43.9); Red Blood Count 3.58 M/mm3 (4.2-5.4); White Blood Count 5.9 K/mm3 (4.4-11.0)
[2018-06-10 06:39] LABS: POSITIVE COUNT NO; POSITIVE DIFFERENTIAL NO; POSITIVE MORPHOLOGY NO
[2018-06-10 07:11] LABS: Bedside Glucose 136 mg/dL (70-110)
[2018-06-10] MEDS: Insulin Lispro 100 UNIT/ML INSULN.PEN 8 UNIT SC (10:05)
[2018-06-10] MEDS: Aspirin E.C. 81 MG Tablet PO (10:08)
[2018-06-10] MEDS: Heparin Injection (Vial) 5,000 UNIT/ML VIAL 5000 UNIT SC (10:09)
[2018-06-10] MEDS: Clopidogrel Bisulfate 75 MG Tablet PO (10:13)
[2018-06-10] MEDS: Lisinopril 10 MG Tablet PO (10:14)
--- NOTE | 2018-06-10 11:45 | CASEMGMT ---
RN SMITA SUBSTATION OPERATOR CONVERSION CM to room to meet with patient for initial transition planning/care coordination assessment. RN SMITA introduced self and role at [facility].? Pt voices understanding and consents to assessment at this time.? Pt resting in bed in no distress at this time.? @ bedside. Pt is A/O at this time and answers all questions appropriately.?? Care providers, pharmacy, and demographics verified at this time. PCP: [facility] Specialists: Daisy Kerr. Diabetic Computer Forwarding System Markup Clerk Preferred Pharmacy: [email or web address] Insurance: [facility], [place] Prescription Benefit:? Yes Living Will/HPOA:? Has both LW and HCPOA, who is her , Leonidas. Copies of both found in e-chart. Living Arrangements: Lives in 2-story home with her . Denies difficulties with stairs. Independent. Transportation: DME: ? Denies using any DME and denies needs.? HHC/SNF: Denies history of either. Declines need for HHC on discharge. Arrangements were made for OT @ [facility] after last discharge. Pt states still plans to do this after discharge. Pt wishes to return home and states has no concerns with going home at time of discharge. CM to follow for discharge planning/needs.? Pt voices no further concerns/needs at this time.? Advised pt to ask for CM if any further questions/concerns/needs arise.? Voices understanding. PLAN: ? Home [place]no TEJEDA RN, CM
--- NOTE | 2018-06-10 11:49 | DCINST_ITS ---
You will use the following diet at home:: Cardiac Your food should be the consistency of: Regular Your liquids should be the consistency of: Regular/Thin Discharge Activity: Return to Normal Activity Weight Bearing Status: Weight bearing as tolerated Call your doctor if you observe: Numbness or Tingling, Shortness of breath, Dizziness, - - mouth droop, weakness or difficulty finding words Additional Instructions: to have 30 day Holter monitor placed to assess for Afib. Allergies/Adverse Reactions: Allergies zinc Allergy (Verified 06/08/18 19:39) blisters Medications to take at Discharge Insulin Glargine [Lantus SoloStar Pen] 24 unit SQ DAILY 06/07/18 Insulin Lispro [Humalog KwikPen] 8 unit SQ DAILY 06/07/18 Lisinopril [Zestril] 10 mg PO BID 06/07/18 Aspirin [Aspir 81] 81 mg PO DAILY 06/08/18 Atorvastatin Calcium [Lipitor] 80 mg PO QHS #30 tablet 06/08/18 Clopidogrel Bisulfate [Plavix] 75 mg PO DAILY #30 tablet 06/08/18 Primary Care Physician: Petros Gambino MD [Primary Care Provider] - Please follow up with your Primary Care Physician in: one week Test Results: Test results from this visit will be discussed in further detail at your follow- up appointment, if applicable. Please Follow Up With: Rylan Khan MD When: one week Proposed Discharge Date: 06/10/18
--- NOTE | 2018-06-10 12:35 | NURSING ---
Dr. Khan in to see patient while family out for lunch. comes to nurses station and informs charge nurse that he would like to speak with Dr. Khan. Charge nurse paged for him to call primary RN.
--- NOTE | 2018-06-10 12:36 | PN.NEURO_ITS ---
Subjective: No complaints. No recurrence of symptoms. CTA apparently not done due to elevated creatinine - Physical Exam General: Alert, Oriented x3, Cooperative HEENT: KARLENE MCCALLUM Neurological: Cranial nerves II-XII grossly intact Psych/Mental Status: Normal Affect, Alert and oriented to time, place, person, mood and affect Vital Signs Temp Pulse Resp BP Pulse Ox 36.6 C 66 16 140/61 H 98 06/10/18 09:45 06/10/18 11:39 06/10/18 09:45 06/10/18 09:45 06/10/18 09:45 Oxygen Delivery Method Room Air Weight: 79 kg Body Mass Index (BMI) 29.0 Finger Stick Blood Glucose 86 Intake and Output for Last 24 Hours 06/08/18 06/09/18 06/10/18 23:59 23:59 23:59 Intake Total 1073 / 1073 Balance 1073 / 1073 Laboratory Tests Past 24 Hrs 06/10/18 06/10/18 05:45 05:45 WBC 5.9 RBC 3.58 L Hgb 10.4 L Hct 33.5 L MCV 93.6 MCH 29.1 MCHC 31.0 L RDW 12.4 RDW Differential 40.9 Plt Count 226 MPV 10.0 Immature Gran % (Auto) 0.200 Neut % (Auto) 51.7 Lymph % (Auto) 37.7 [place] % (Auto) 6.9 Eos % (Auto) 3.0 Baso % (Auto) 0.5 Absolute Neuts (auto) 3.1 Absolute Lymphs (auto) 2.24 Total Counted Not Reportable Sodium 145 Potassium 4.9 Chloride 115 H Carbon Dioxide 22.0 Anion Gap 8 BUN 29 H Creatinine 1.98 H Estim Creat Clear Calc 22.43 Est GFR (MDRD) Af Amer 32 L Est GFR (MDRD) Non-Af 26 L BUN/Creatinine Ratio 14.6 Glucose 156 H Calcium 9.0 POC Glucose 06/10/18 06/09/18 06/09/18 07:00 21:00 17:11 POC Glucose 136 H 185 H 149 H 06/08/18 19:27 POC Glucose 89 Current Home Med List Medication Instructions Recorded Confirmed Type Insulin Glargine [Lantus SoloStar 24 unit SQ DAILY 06/07/18 06/08/18 History Pen] Insulin Lispro [Humalog KwikPen] 8 unit SQ DAILY 06/07/18 06/08/18 History Lisinopril [Zestril] 10 mg PO BID 06/07/18 06/08/18 History Aspirin [Aspir 81] 81 mg PO DAILY 06/08/18 06/08/18 History Atorvastatin Calcium [Lipitor] 80 mg PO QHS #30 tablet 06/08/18 06/08/18 Rx Clopidogrel Bisulfate [Plavix] 75 mg PO DAILY #30 tablet 06/08/18 06/08/18 Rx Medical Necessity - Tobacco Use Smoking Status: Never smoker Tobacco Use: Non-smoker Assessment/Plan All Active Problems CVA (cerebral vascular accident) (Acute) Left MCA distribution CVA, symptoms now resolved, NIH stroke scale score 0. I think the recurrence of her symptoms are either waxing and waning or due to intracranial stenosis. We discussed obtaining an outpatient CTA after hydration or transcranial Doppler ultrasound. I would recommend that she maintain the current medications, and also have a Holter monitor as an outpatient although I think A. fib is less likely due to the unilaterality of her infarct in the absence of recurrent stroke on MRI. Okay to discharge home from neurology standpoint
--- NOTE | 2018-06-10 13:04 | NURSING ---
Dr. Khan has not returned. Call. RN called the office and spoke with the secretary to the vice president, Radha. Informed her that Dr. Khan had been in to see the patient while her was away. has returned and is demanding to speak with neurologist. Marion will inform Dr. Khan of same and call this nurse back. RN informed of same.
--- NOTE | 2018-06-10 14:08 | NURSING ---
Dr. Benson phoned and stated that she spoke with Dr. Khan regarding restarting the Eliquis. Per Dr. Khan, patient is not to restart Eliquis. Patient and family made aware of same.
[2018-06-10 16:51] LABS: Bedside Glucose 96 mg/dL (70-110)
--- NOTE | 2018-06-10 18:47 | PCM.DC.SUM ---
Discharge Date and Diagnosis Date of Admission: 06/08/18 Date of Discharge: 06/10/18 - Primary Discharge Diagnosis CVA - Secondary Discharge Diagnosis Chronic Problems HTN (hypertension) (Chronic) CAD (coronary artery disease) (Chronic) CKD (chronic kidney disease) stage 3, GFR 30-59 ml/min (Chronic) Anemia (Chronic) Type II diabetes mellitus (Chronic) Hospital Course and Treatment Imaging Results: Diagnostic Data Brain CT 06/08/18 19:33 IMPRESSION: Chronic involutional changes of the brain. Chronic right sphenoid sinusitis. If clinically indicated, MRI may be helpful for further evaluation. Electronically Signed: Mina Rolon MD at 20:00 EST , Service support , Chest X-Ray 06/08/18 19:47 IMPRESSION: Status post sternotomy. Small hiatal hernia. Calcified plaques of the aortic arch. No acute cardiopulmonary disease process is seen. 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 Electronically Signed: Ebenezer Bustillos MD at 19:24 EST , Service support , neurology- Dr Khan Operations: None Procedures: None Summary of Care Provided: The patient is aa 72 year old F with an extensive PMH as listed, including a recent CVA. Patient is a 72 y/o F with an extensive PMH as listed. She was admitted on 06/08/2018 with a complaint of recurrent right-sided weakness, facial droop and slurred speech which lasted about 10 minutes and onset was about 7 PM which had resolved by the time she came to the ED. Of note, patient was discharged on June 08, 2018 after she was admitted for right-sided weakness, slurred speech and facial droop which subsequently resolved. MRI findings were significant for left parietal and occipital lobes concerning for embolic etiology given appearance with an unremarkable MRA of the head and neck. Echo done during previous admission showed EF of 65% with moderate concentric left ventricular hypertrophy, stage I diastolic dysfunction and bubble study was negative. At home and symptoms recurred so she came back to the hospital. She had been discharged on aspirin and Plavix and was to have a 30-day Holter monitor done. She was managed for CVA. She had a NANCY done on request of neurology were consulted. NANCY was essentially negative she had a repeat MRI of the brain which showed multiple subacute embolic infarcts in the left posterior cerebral artery watershed territory demonstrating interval evolution/resolution. Patient remained stable. Due to strong suspicion for atrial fibrillation, it was considered that patient should be started on eliquis. However, per discussion with neurology, Neurology didn't think that since patient hadnt been diagnosed with afib, to hold off on eliquis and other oral anticoagulants for now and await results of Holter monitor. Per neurology, recurrent since her symptoms were either waxing and waning or due to intracranial stenosis. Urology discussed obtaining an outpatient CT after hydration and a transcranial Doppler ultrasound with the patient. Patient was discharged home on aspirin and Plavix and also had placement of a 30-day Holter monitor before discharge. She is to follow-up with her primary care doctor and neurologist. Patient seen and examined prior to discharge. She had no complaints. Symptoms have resolved. Review of systems otherwise negative. Labs and vitals reviewed. o/e: Vital Signs Height 5 ft 5 in Weight: 174 lb 2.643 oz Weight in Pounds 174.2 lbs Pulse Ox 98 Temperature 98 F Pulse Rate 66 Respiratory Rate 16 Blood Pressure 140/61 Blood Pressure Position Sitting General: Alert, Oriented x3, Cooperative, No apparent distress HEENT: Atraumatic, PERRLA, EOMI, Normocephalic Oral: Moist Mucosa Neck: Supple, No JVD, Negative Carotid Bruits Lungs: Clear to auscultation, Normal air movement, No rhonchi, No wheeze, No rales Cardiovascular: Regular rate, Regular Rhythm, Normal S1, Normal S2, No murmurs Abdomen: Bowel Sounds Present, Soft, Non Tender, Non-Distended, No Hepato-splenomegaly Extremities: No clubbing, No cyanosis, No edema, Capillary Refill Less than 3 Seconds Skin: No rashes, No breakdown Musculoskeletal: No Tenderness to Palpation of Joints or Extremities Lymphatic: No Cervical, Supraclavicular, or Inguinal Adenopathy Neurological: - - very mild right facial droop, neurological examination otherwise normal Psych/Mental Status: Normal Affect, Appropriate, Alert and oriented to time, place, person, mood and affect Plan as discussed above. - Physical Exam Vital Signs Temp Pulse Resp BP Pulse Ox 98 F 66 16 140/61 H 98 06/10/18 09:45 06/10/18 11:39 06/10/18 09:45 06/10/18 09:45 06/10/18 09:45 Oxygen Delivery Method Room Air Weight: 174 lb 2.643 oz Body Mass Index (BMI) 29.0 Finger Stick Blood Glucose 86 Intake and Output for Last 24 Hours 06/08/18 06/09/18 06/10/18 23:59 23:59 23:59 Intake Total 1073 / 1073 240 / 240 Balance 1073 / 1073 240 / 240 Laboratory Tests Past 24 Hrs 06/10/18 06/10/18 05:45 05:45 WBC 5.9 RBC 3.58 L Hgb 10.4 L Hct 33.5 L MCV 93.6 MCH 29.1 MCHC 31.0 L RDW 12.4 RDW Differential 40.9 Plt Count 226 MPV 10.0 Immature Gran % (Auto) 0.200 Neut % (Auto) 51.7 Lymph % (Auto) 37.7 [place] % (Auto) 6.9 Eos % (Auto) 3.0 Baso % (Auto) 0.5 Absolute Neuts (auto) 3.1 Absolute Lymphs (auto) 2.24 Total Counted Not Reportable Sodium 145 Potassium 4.9 Chloride 115 H Carbon Dioxide 22.0 Anion Gap 8 BUN 29 H Creatinine 1.98 H Estim Creat Clear Calc 22.43 Est GFR (MDRD) Af Amer 32 L Est GFR (MDRD) Non-Af 26 L BUN/Creatinine Ratio 14.6 Glucose 156 H Calcium 9.0 POC Glucose 06/10/18 06/10/18 06/09/18 11:35 07:00 21:00 POC Glucose 96 136 H 185 H Discharge Diet: Low fat/ Low Cholesterol Discharge Activity: Return to Normal Activity Weight Bearing Status: Weight bearing as tolerated Call your doctor if you observe: Numbness or Tingling, Shortness of breath, Dizziness, - - mouth droop, weakness or difficulty finding words Home Medications: Medications to take at Discharge Insulin Glargine [Lantus SoloStar Pen] 24 unit SQ DAILY 06/07/18 Insulin Lispro [Humalog KwikPen] 8 unit SQ DAILY 06/07/18 Lisinopril [Zestril] 10 mg PO BID 06/07/18 Aspirin [Aspir 81] 81 mg PO DAILY 06/08/18 Atorvastatin Calcium [Lipitor] 80 mg PO QHS #30 tablet 06/08/18 Clopidogrel Bisulfate [Plavix] 75 mg PO DAILY #30 tablet 06/08/18 Primary Care Physician: Petros Gambino MD [Primary Care Provider] - Please follow up with your Primary Care Physician in: one week Please Follow Up With: Rylan Khan MD When: one week Disposition: Home Minutes spent on discharge:: 40 Patient Condition:: Stable Medical Necessity - Tobacco Use Smoking Status: Never smoker Tobacco Use: Non-smoker Meaningful Use Info Meaningful Use Diagnoses (Choose all that apply): Ischemic CVA - CVA Therapy Assessed for PT,OT and/or ST?: Yes - Ischemic Stroke Antithrombotic order at d/c?: Yes Dx of Atrial fib/flutter?: No Statins at discharge?: Yes Primary Dx Acute Ischemic CVA?: Yes IV tPA ordered during stay?: No Reason IV t-PA not ordered: Treatment not Indicated Code Visit Inpatient E&M: 30307 Disch Hosp
--- NOTE | 2018-06-10 18:58 | DS.PCM_ITS ---
Discharge Date and Diagnosis Date of Admission: 06/08/18 Date of Discharge: 06/10/18 - Primary Discharge Diagnosis CVA - Secondary Discharge Diagnosis Chronic Problems HTN (hypertension) (Chronic) CAD (coronary artery disease) (Chronic) CKD (chronic kidney disease) stage 3, GFR 30-59 ml/min (Chronic) Anemia (Chronic) Type II diabetes mellitus (Chronic) Hospital Course and Treatment Imaging Results: Diagnostic Data Brain CT 06/08/18 19:33 IMPRESSION: Chronic involutional changes of the brain. Chronic right sphenoid sinusitis. If clinically indicated, MRI may be helpful for further evaluation. Electronically Signed: Mina Rolon MD at 20:00 EST , Service support , Chest X-Ray 06/08/18 19:47 IMPRESSION: Status post sternotomy. Small hiatal hernia. Calcified plaques of the aortic arch. No acute cardiopulmonary disease process is seen. 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 Electronically Signed: Ebenezer Bustillos MD at 19:24 EST , Service support , neurology- Dr Khan Operations: None Procedures: None Summary of Care Provided: The patient is aa 72 year old F with an extensive PMH as listed, including a recent CVA. Patient is a 72 y/o F with an extensive PMH as listed. She was admitted on 06/08/2018 with a complaint of recurrent right-sided weakness, facial droop and slurred speech which lasted about 10 minutes and onset was about 7 PM which had resolved by the time she came to the ED. Of note, patient was discharged on June 08, 2018 after she was admitted for right-sided weakness, slurred speech and facial droop which subsequently resolved. MRI findings were significant for left parietal and occipital lobes concerning for embolic etiology given appearance with an unremarkable MRA of the head and neck. Echo done during previous admission showed EF of 65% with moderate concentric left ventricular hypertrophy, stage I diastolic dysfunction and bubble study was negative. At home and symptoms recurred so she came back to the hospital. She had been discharged on aspirin and Plavix and was to have a 30-day Holter monitor done. She was managed for CVA. She had a NANCY done on request of neurology were consulted. NANCY was essentially negative she had a repeat MRI of the brain which showed multiple subacute embolic infarcts in the left posterior cerebral artery watershed territory demonstrating interval evolution/resolution. Patient remained stable. Due to strong suspicion for atrial fibrillation, it was considered that patient should be started on eliquis. However, per discussion with neurology, Neurology didn't think that since patient hadnt been diagnosed with afib, to hold off on eliquis and other oral anticoagulants for now and await results of Holter monitor. Per neurology, recurrent since her symptoms were either waxing and waning or due to intracranial stenosis. Urology discussed obtaining an outpatient CT after hydration and a transcranial Doppler ultrasound with the patient. Patient was discharged home on aspirin and Plavix and also had placement of a 30-day Holter monitor before discharge. She is to follow-up with her primary care doctor and neurologist. Patient seen and examined prior to discharge. She had no complaints. Symptoms have resolved. Review of systems otherwise negative. Labs and vitals reviewed. o/e: Vital Signs Height 5 ft 5 in Weight: 174 lb 2.643 oz Weight in Pounds 174.2 lbs Pulse Ox 98 Temperature 98 F Pulse Rate 66 Respiratory Rate 16 Blood Pressure 140/61 Blood Pressure Position Sitting General: Alert, Oriented x3, Cooperative, No apparent distress HEENT: Atraumatic, PERRLA, EOMI, Normocephalic Oral: Moist Mucosa Neck: Supple, No JVD, Negative Carotid Bruits Lungs: Clear to auscultation, Normal air movement, No rhonchi, No wheeze, No rales Cardiovascular: Regular rate, Regular Rhythm, Normal S1, Normal S2, No murmurs Abdomen: Bowel Sounds Present, Soft, Non Tender, Non-Distended, No Hepato- splenomegaly Extremities: No clubbing, No cyanosis, No edema, Capillary Refill Less than 3 Seconds Skin: No rashes, No breakdown Musculoskeletal: No Tenderness to Palpation of Joints or Extremities Lymphatic: No Cervical, Supraclavicular, or Inguinal Adenopathy Neurological: - - very mild right facial droop, neurological examination otherwise normal Psych/Mental Status: Normal Affect, Appropriate, Alert and oriented to time, place, person, mood and affect Plan as discussed above. - Physical Exam Vital Signs Temp Pulse Resp BP Pulse Ox 98 F 66 16 140/61 H 98 06/10/18 09:45 06/10/18 11:39 06/10/18 09:45 06/10/18 09:45 06/10/18 09:45 Oxygen Delivery Method Room Air Weight: 174 lb 2.643 oz Body Mass Index (BMI) 29.0 Finger Stick Blood Glucose 86 Intake and Output for Last 24 Hours 06/08/18 06/09/18 06/10/18 23:59 23:59 23:59 Intake Total 1073 / 1073 240 / 240 Balance 1073 / 1073 240 / 240 Laboratory Tests Past 24 Hrs 06/10/18 06/10/18 05:45 05:45 WBC 5.9 RBC 3.58 L Hgb 10.4 L Hct 33.5 L MCV 93.6 MCH 29.1 MCHC 31.0 L RDW 12.4 RDW Differential 40.9 Plt Count 226 MPV 10.0 Immature Gran % (Auto) 0.200 Neut % (Auto) 51.7 Lymph % (Auto) 37.7 [place] % (Auto) 6.9 Eos % (Auto) 3.0 Baso % (Auto) 0.5 Absolute Neuts (auto) 3.1 Absolute Lymphs (auto) 2.24 Total Counted Not Reportable Sodium 145 Potassium 4.9 Chloride 115 H Carbon Dioxide 22.0 Anion Gap 8 BUN 29 H Creatinine 1.98 H Estim Creat Clear Calc 22.43 Est GFR (MDRD) Af Amer 32 L Est GFR (MDRD) Non-Af 26 L BUN/Creatinine Ratio 14.6 Glucose 156 H Calcium 9.0 POC Glucose 06/10/18 06/10/18 06/09/18 11:35 07:00 21:00 POC Glucose 96 136 H 185 H Discharge Diet: Low fat/ Low Cholesterol Discharge Activity: Return to Normal Activity Weight Bearing Status: Weight bearing as tolerated Call your doctor if you observe: Numbness or Tingling, Shortness of breath, Dizziness, - - mouth droop, weakness or difficulty finding words Home Medications: Medications to take at Discharge Insulin Glargine [Lantus SoloStar Pen] 24 unit SQ DAILY 06/07/18 Insulin Lispro [Humalog KwikPen] 8 unit SQ DAILY 06/07/18 Lisinopril [Zestril] 10 mg PO BID 06/07/18 Aspirin [Aspir 81] 81 mg PO DAILY 06/08/18 Atorvastatin Calcium [Lipitor] 80 mg PO QHS #30 tablet 06/08/18 Clopidogrel Bisulfate [Plavix] 75 mg PO DAILY #30 tablet 06/08/18 Primary Care Physician: Petros Gambino MD [Primary Care Provider] - Please follow up with your Primary Care Physician in: one week Please Follow Up With: Rylan Khan MD When: one week Disposition: Home Minutes spent on discharge:: 40 Patient Condition:: Stable Medical Necessity - Tobacco Use Smoking Status: Never smoker Tobacco Use: Non-smoker Meaningful Use Info Meaningful Use Diagnoses (Choose all that apply): Ischemic CVA - CVA Therapy Assessed for PT,OT and/or ST?: Yes - Ischemic Stroke Antithrombotic order at d/c?: Yes Dx of Atrial fib/flutter?: No Statins at discharge?: Yes Primary Dx Acute Ischemic CVA?: Yes IV tPA ordered during stay?: No Reason IV t-PA not ordered: Treatment not Indicated Code Visit Inpatient E&M: 73945 Disch Hosp
== END 2018-06-10 15:00 | disposition home or self-care (01) | DRG 65 ==
LOC: ED 19:51 → PCU 21:54
PROVIDERS: Admitting Provider Family Medicine; Emergency Provider Emergency Medicine; Family Provider Family Medicine; PCP Family Medicine; Visit Provider Student in an Organized Health Care Education/Training Program
DX: I63.432 Cerebral infarction due to embolism of left posterior cerebral artery (principal); G81.91 Hemiplegia, unspecified affecting right dominant side; R47.81 Slurred speech; R29.810 Facial weakness; E78.5 Hyperlipidemia, unspecified; I25.10 Atherosclerotic heart disease of native coronary artery without angina pectoris; E11.65 Type 2 diabetes mellitus with hyperglycemia; I12.9 Hypertensive chronic kidney disease with stage 1 through stage 4 chronic kidney disease, or unspecified chronic kidney disease; E11.22 Type 2 diabetes mellitus with diabetic chronic kidney disease; N18.3 Chronic kidney disease, stage 3 (moderate); E66.3 Overweight; D64.9 Anemia, unspecified; Z95.1 Presence of aortocoronary bypass graft; Z68.29 Body mass index [BMI] 29.0-29.9, adult; Z79.4 Long term (current) use of insulin; I48.91 Unspecified atrial fibrillation; Z79.82 Long term (current) use of aspirin; Z79.899 Other long term (current) drug therapy; R53.1 Weakness; R26.2 Difficulty in walking, not elsewhere classified; R20.0 Anesthesia of skin; I07.1 Rheumatic tricuspid insufficiency
CPT/HCPCS: 36415; 70450; 70544; 70547; 70551; 71045; 80048; 80061; 80076; 82962; 83036; 83735; 84443; 84484; 85025; 85610; 85730; 92523; 92610; 93005; 93306; 93312; 93320; 93325; 96360; 96361; 97161; 97165; 97802; 99218; 99283; 99285; J7030; Q9957; A4216; C8929; G0378

== ENCOUNTER 2018-07-25 23:28 | Emergency (ER) | payer MEDICARE, OTHER, SELFPAY ==
[2018-06-09 23:10] VITALS: BMI 29.0
[2018-07-25 23:28] VITALS: BP 161/73; PULSE 71; RESP 17; TEMP 36.6; O2SAT 95; BMI 29.7
--- NOTE | 2018-07-25 23:48 | EKG12_ITS ---
Test Reason : GEN ILL Blood Pressure : / mmHG Vent. Rate : 059 BPM Atrial Rate : 059 BPM P-R Int : 180 ms QRS Dur : 098 ms QT Int : 458 ms P-R-T Axes : 030 -08 119 degrees QTc Int : 453 ms Sinus bradycardia Inferior infarct (cited on or before 08-JUN-2018) age undetermined T wave abnormality, consider lateral ischemia Abnormal ECG Confirmed by VICKY CAMERON, ALEJANDRO ([id number]), newspaper managing editor JEANETTE SYED ([id number]) on 07/29/2018 11:36:04 AM Referred By: TYRON Confirmed By:ALEJANDRO PERRY MD
--- NOTE | 2018-07-25 23:53 | ED.DCSUM_ITS ---
History of Present Illness Chief Complaint: General Illness Narrative: She stated that for the last couple weeks she has had a cough with some abdominal cramping and nausea. Patient stated that the reason she came in tonight however was because she was in the bathroom and try to get out. She got out and got lightheaded and had a syncopal episode. She did not fall or injure herself. She was able to get outside the bathtub and not fall. She denies any headache. She reached out to her who came up to her assistance. She denies any chest pain or shortness of breath. The patient stated that she did lay back against the steps and had some tremors for about 5 seconds. He does not think she actually had a seizure episode. She is never had seizures before. Current severity is mild. Her only complaint currently is nausea and some abdominal pain periumbilical. She denies any urinary symptoms. The patient has had 2 C-sections in the past. No other surgeries. She is having normal bowel movements. Current severity is moderate. She was given Zofran by EMS and brought in for further evaluation. She has had a 3 vessel bypass in the past. - Past Medical History (1) CVA (cerebral vascular accident) Status: Acute (2) Anemia Status: Chronic (3) CAD (coronary artery disease) Status: Chronic (4) CKD (chronic kidney disease) stage 3, GFR 30-59 ml/min Status: Chronic (5) HTN (hypertension) Status: Chronic (6) Type II diabetes mellitus Status: Chronic Past Medical History - Allergies and Home Meds Allergies/Adverse Reactions: Allergies zinc Allergy (Verified 07/25/18 23:34) blisters bandages Allergy (Uncoded 07/25/18 23:32) Hives Primary Care Physician: Petros Gambino MD [Primary Care Provider] - Surgical History: - - CABG, appendectomy. Lives: Spouse/ Significant Other Smoking Status: Smoker, status unknown Alcohol: None Drugs: None - Family History Maternal Family History: Reports: Stroke Paternal Family History: Reports: - - Patient denies any marked paternal history including heart disease, diabetes, cancer. Review of Systems General: Denies: Chills, Fever, Sweats Eyes: Denies: Visual changes - bilaterally, Diplopia ENT: Denies: Rhinorrhea, Sore throat Cardiovascular: Denies: Chest pain, Palpitations Respiratory: Reports: Cough. Denies: Dyspnea, Dyspnea on exertion Gastrointestinal: Reports: Nausea, Vomiting - Vomiting but more dry heaves without vomitus x1. Denies: Abdominal pain, Diarrhea, Melena, Hematochezia Genitourinary: Denies: Dysuria, Hematuria, Frequency Musculoskeletal: Denies: Back pain, Extremity Pain Skin: Denies: Rash, Wounds Neurological: Reports: Weakness. Denies: Headache, Numbness Physical Exam Vital Signs/Narrative: Vital Signs Temp Pulse Resp BP Pulse Ox 07/25/18 23:28 98 F 71 17 161/73 H 95 General: Well nourished, Well developed, No Acute Distress Head: Normocephalic, Atraumatic Eyes: Perrl, EOMI ENT: Moist mucous membranes, No rhinorrhea Neck: Supple, Nontender Cardiovascular: Regular rate, Regular rhythm, No murmurs Respiratory: No distress, CTA bilaterally, Chest nontender Abdomen: Soft, Nondistended, Normal bowel sounds, Tender - Positive tenderness around the umbilicus. No swelling mass or deformity. No guarding or rebound. Back: Nontender, Normal Inspection Extremities: Nontender, No edema Skin: Normal color, No rash Neurological: Alert, Oriented x3, Cranial nerves II-XII grossly intact, Normal Strength, Normal Sensation Psychological: Normal affect, Normal Mood Diagnostic/Tx/Re-eval - Medical Decision Making EMS established an IV. Give another dose of Zofran. Given IV fluids and 1 dose of fentanyl. Lab work and CT head and abdomen pelvis obtained. EKG shows sinus rhythm at a rate of 59. T wave inversion 1 and aVL. This is unchanged from prior. Lab work shows a normal troponin. CBC shows a mild anemia at no sig nificant change from baseline. Chronic renal insufficiency noted. Patient did feel better after treatment. No nausea or vomiting here. CT head showed nothing acute. CT abdomen pelvis showed positive constipation pattern and other chronic findings. On reevaluation patient resting comfortably. I feel she can be discharged. She is going to use an antacid at home. She is also instructed to use Maalox. She will follow-up as an outpatient. I do not think she needs a minute. I think she likely had a vagal episode. ED Disposition - Plan for ED Patient: Disposition: Home or Assisted Living Diagnosis: Syncope, Constipation Instructions: What Is Syncope? Referrals: Petros Gambino MD [Primary Care Provider] -
[2018-07-25] MEDS: 0.9% Normal Saline 1,000 ML 1000 ML IV (23:59)
[2018-07-25] MEDS: fentaNYL 100 MCG/2 ML Ampul 25 MCG IV (23:59)
[2018-07-25] MEDS: Ondansetron 4 MG/2 ML Vial IV (23:59)
[2018-07-26 00:03] VITALS: PULSE 61; RESP 17; O2SAT 86
[2018-07-26 00:07] LABS: Absolute Lymphocyte Count 2.74 X10^3/ul (0.83-4.51); Absolute Neutrophil Count 5.8 X10^3/uL (2.0-7.7); Basophil# 0.02 X10^3/uL; Basophil% 0.2 % (0-1); Eosinophil# 0.17 X10^3/uL; Eosinophils% 1.8 % (0-5); Hematocrit 29.7 % (37-47); Hemoglobin 9.5 g/dl (12.0-15.0); Lymphocyte # 2.74 X10^3/ul (4.0); Lymphocyte % 29.5 % (19-41); Mean Corpuscular Hgb 29.3 pg (27.0-32.0); Mean Corpuscular Volume 91.7 fL (81-99); Mean Platelet Vol. 9.8 fl (6.2-12.0); Monocyte# 0.56 X10^3/uL; Neutrophil # 5.79 X10^3/uL (2.7-7.7); Neutrophil % 62.3 % (47-70); POSITIVE COUNT NO; POSITIVE DIFFERENTIAL NO; POSITIVE MORPHOLOGY NO; Platelet Count 257 K/mm3 (150-450); RBC Distribution Width CV 12.9 % (11.6-14.6); RBC Distribution Width SD 42.1 fl (35.1-43.9); Red Blood Count 3.24 M/mm3 (4.2-5.4); White Blood Count 9.3 K/mm3 (4.4-11.0)
[2018-07-26 00:18] LABS: ALB/GLOB Ratio 0.7 RATIO (0.9-2.4); AST(SGOT) 14 U/L (15-37); Alanine Aminotransfer ALT/SGPT 15 U/L (13-56); Albumin, Serum 2.8 g/dL (3.2-5.0); Alkaline Phosphatase 94 U/L (45-117); Anion Gap 6 (5-15); BUN 41 mg/dL (7-18); Calcium,Total 9.1 mg/dL (8.5-10.1); Chloride 114 mmol/L (98-107); Creatinine, Serum 1.95 mg/dL (0.55-1.02); EST Glomerular Filtration Rate 27 mL/min (>60); Est Glom Filt Rate - Afr Amer 32 mL/min (>60); Estimated Creatinine Clearance 22.78 ml/min; Glucose 175 mg/dL (74-106); Lipase 179 U/L (73-393); Potassium 4.2 mmol/L (3.5-5.1); Protein, Total 6.8 g/dL (6.4-8.2); Sodium Level 141 mmol/L (136-145)
[2018-07-26 00:56] VITALS: BP 168/69; PULSE 70; RESP 15; O2SAT 98
[2018-07-26 02:00] VITALS: BP 155/69; PULSE 58; RESP 17; O2SAT 98
[2018-07-26 03:22] VITALS: BP 170/67; PULSE 75; RESP 15; O2SAT 100
--- NOTE | 2018-07-26 23:48 | CT_ITS ---
HISTORY: SYNCOPE, N/V WITH ABD PAIN X 2 WEEKS, RECENT CVA, CKD, HTN, DIAB, CABG, APPY EXAMINATION: CT Head or Brain W/O Contrast TECHNIQUE: Multiple axial images were obtained of the brain without intravenous contrast. A radiation dose optimization technique was used for this scan. IV Contrast dosage and agent: None. COMPARISON: Cranial CT 06/08/2018 and MR brain 06/09/2018 FINDINGS: With comparison to recent CT exam, no significant change. Normal ventricles and age appropriate cerebral cortical atrophy. White matter chronic ischemic changes. Calcified pineal gland which is stable and midline. Benign choroid plexus xanthogranulomas, unchanged. No intracranial mass, hemorrhage, or significant mass-effect. Vertebrobasilar atherosclerotic calcifications and posterior fossa structures are otherwise unremarkable. Bilateral carotid atherosclerotic calcifications, as well. No suspicious extra-axial fluid collection. As visualized, the mastoids are clear. Right sphenoid chronic sinusitis. CT/Brain/Head without Contrast IMPRESSION: 1. Stable CT findings. No hemorrhage or acute disease. 2. White matter chronic ischemic changes. 3. Right sphenoid chronic sinusitis. Individualized dose optimization techniques were used for this CT. at 0048 Reported and signed by: Roman Barrera MD Electronically Signed: Roman Barrera, at 0:47 EDT Tel , Service support ,
--- NOTE | 2018-07-26 23:49 | CT_ITS ---
HISTORY: SYNCOPE, N/V WITH ABD PAIN X 2 WEEKS, RECENT CVA, CKD, HTN, DIAB, CABG, APPY EXAMINATION: CT Abdomen And Pelvis W/O Contrast TECHNIQUE: Helically acquired images were obtained of the abdomen and pelvis without oral or IV contrast as per renal stone protocol. A radiation dose optimization technique was used for this scan. IV Contrast dosage and agent: None. Oral contrast: None. COMPARISON: 07/01/2010 FINDINGS: Lower thorax: Chronic mild elevation of the right hemidiaphragm. Moderate hiatal hernia. No pleural effusion. Previous median sternotomy. Scattered hepatic cysts with the largest cyst measuring 3.5 cm in maximal dimension within the left hepatic lobe, anteriorly. Nonvisualization of the gallbladder compatible with cholecystectomy. No biliary dilatation. Normal spleen. Atrophic pancreas. No pancreatic duct dilatation. Both kidneys are normal in position. No renal or ureteral calculi and no hydronephrosis or hydroureter. Adrenal glands are not enlarged. Abdominal aorta is atherosclerotic and normal in caliber. No ascites or retroperitoneal lymph node enlargement. GI tract: Constipation pattern with copious fecal residue at the rectal ampulla. Diverticulosis coli. No pericolonic inflammatory changes. Nonvisualization of the appendix. Pelvis: Hysterectomy. No free fluid or lymphadenopathy. Normal urinary bladder. Bones: No acute osseous abnormality. CT/Abdomen/Pelvis without Cont IMPRESSION: 1. Constipation pattern. Diverticulosis coli. No free fluid or acute abdominal disease identified. 2. Chronic findings include hiatal hernia, hepatic cysts, and atherosclerotic calcifications. Individualized dose optimization techniques were used for this CT. at 0309 Reported and signed by: Roman Barrera MD Electronically Signed: Roman Barrera, at 3:07 EDT Tel , Service support ,
== END 2018-07-26 03:22 | disposition home or self-care (01) ==
PROVIDERS: Emergency Provider Emergency Medicine; Family Provider Family Medicine; PCP Family Medicine
DX: R55 Syncope and collapse (principal); K59.00 Constipation, unspecified; I25.10 Atherosclerotic heart disease of native coronary artery without angina pectoris; I12.9 Hypertensive chronic kidney disease with stage 1 through stage 4 chronic kidney disease, or unspecified chronic kidney disease; E11.22 Type 2 diabetes mellitus with diabetic chronic kidney disease; N18.3 Chronic kidney disease, stage 3 (moderate); D63.1 Anemia in chronic kidney disease; F17.200 Nicotine dependence, unspecified, uncomplicated; Z86.73 Personal history of transient ischemic attack (TIA), and cerebral infarction without residual deficits; Z79.82 Long term (current) use of aspirin; Z79.4 Long term (current) use of insulin; Z79.899 Other long term (current) drug therapy
CPT/HCPCS: 70450; 74176; 80053; 83690; 84484; 85025; 93005; 96361; 96374; 96375; 99285; J7030; A4216; J2405

== ENCOUNTER 2019-06-06 09:38 | Observation (INO) | payer MEDICARE, OTHER, SELFPAY ==
[2019-06-06] VITALS (13 sets, daily range): BP systolic 86–129; BP diastolic 40–62; PULSE 59–81; RESP 14–19; TEMP 36.6–36.9; O2SAT 93–97; BMI 29.9; BMI 29.4
--- NOTE | 2019-06-06 10:07 | RAD_ITS ---
STUDY: X-RAY CHEST REASON FOR EXAM: Female, 73 years old. WEAKNESS, FAINTED, HEART ATTACK X 2 DAYS AGO, -- FIVE WAY BYPASS TECHNIQUE: Single AP portable view of the chest. COMPARISON: Comparison is made with prior examination dated June 08, 2018. FINDINGS: EKG electrodes are seen. Stable mild increased linear markings at the right lung base suggestive of mild scarring. There is no demonstrated pleural abnormality. Sternal cerclage wires and vascular clips are present from a prior sternotomy and coronary artery bypass graft procedure (CABG). Moderate cardiomegaly. Normal mediastinum and ana maria. Normal visualized pulmonary arteries. There is atherosclerotic calcification of the aortic arch with tortuosity. There are diffuse degenerative changes of the visualized thoracic spine. Normal visualized ribs, clavicles, and shoulders. Large hiatal hernia. RAD/Chest 1 View (Portable) IMPRESSION: Cardiomegaly. Large hiatal hernia. Electronically Signed: Bertram Brown, at 10:55 EST , Service support ,
--- NOTE | 2019-06-06 10:07 | EKG12_ITS ---
Test Reason : DIZZY Blood Pressure : / mmHG Vent. Rate : 059 BPM Atrial Rate : 059 BPM P-R Int : 178 ms QRS Dur : 128 ms QT Int : 474 ms P-R-T Axes : 039 -14 167 degrees QTc Int : 469 ms Sinus bradycardia Non-specific intra-ventricular conduction block Cannot rule out Anterior infarct , age undetermined T wave abnormality, consider lateral ischemia Abnormal ECG Confirmed by WILLEM HUA ([id number]), research editor YUMIKO TELLEZ ([id number]) on 06/08/2019 3:13:49 PM Referred By: KRISTEN Confirmed By:WILLEM HUA
--- NOTE | 2019-06-06 10:11 | ED.DCSUM_ITS ---
- ER Visit Summary Date of Service: 06/06/19 Chief Complaint: Generalized weakness History of Present Illness: The patient is a 73 F 3 of CVA, CAD, ID, insulin- dependent diabetes, hypertension and renal insufficiency. Patient reportedly had a ID last week. Was admitted and treated in clinic had a heart ca theterization. Has had a prior [address] way bypass. Said that she had a lot of medication changes did not do any new stenting. She currently is on Plavix and aspirin and blood pressure medications. He is recently been taken off some medications and a study that she was on those medications. Physical Examination: Initial blood pressure was running low at 96/52 however when I am in the room she is 113/65. Temperature 97.8. Pulse ox 93% on room air no signs hypoxia. No distress. H EENT exam unremarkable. Moist pink membranes. Neck nontender no JVD. Lungs clear to auscultation. Heart regular rhythm rate mild 60 no murmur. Chest were nontender. Abdomen soft nontender. Normal bowel sounds no peritoneal signs. Patient moving all 4 extremities. No edema. No cords. No calf tenderness. Neurologically she is awake alert with no focal motor deficits. Equal symmetrical insurance representative strength. Dorsi plantarflexion intact. NIH score is 0. Test Results: Chest x-ray portable 1 view shows no acute abnormality. Borderline cardiomegaly. Hiatal hernia. Prior sternotomy. EKG shows sinus bradycardia rate of 59 with prior anterior ID. CBC shows white count 8. Hemoglobin 8.0. She normally runs a low 10. I did do a rectal exam there was no black stool or gross blood. Nurses present in the room. Electrolytes show normal gap of 7. BUN of 40 creatinine 2.46 which is worsening acute on chronic renal insufficiency. Her lactic acid is 0.8. UA is negative and shows no signs of infection. Emergency Department Course and Treatment: Older female with transient hypotension and weakness. Unremarkable exam. Patient has been treated with IV fluids without significant improvement. She is not very symptomatic. I do not think this is infectious related. I think it is mainly secondary to medication since all of her meds were recently changed. Treatment Plan: I spoke with the hospitalist will admit the patient to PCU for further evaluation and work-up Disposition: 23-hour observation. Impression: Generalized weakness with hypotension of uncertain etiology. This note was generated with [employer] dictation software. It may contain incorrect words, spelling, and punctuation that were not noted in review of the chart prior to signing ED Disposition - Plan for ED Patient: Referrals: Petros Gambino MD [Primary Care Provider] -
[2019-06-06 10:14] LABS: Absolute Lymphocyte Count 1.88 X10^3/uL (0.83-4.51); Absolute Neutrophil Count 5.6 X10^3/uL (2.0-7.7); Basophil# 0.02 X10^3/uL; Basophil% 0.2 % (0-1); Eosinophil# 0.28 X10^3/uL; Eosinophils% 3.4 % (0-5); Hematocrit 25.9 % (37-47); Lymphocyte # 1.88 X10^3/ul (4.0); Lymphocyte % 22.6 % (19-41); Mean Corp Hgb Conc 30.9 g/dL (32-36); Mean Corpuscular Hgb 29.2 pg (27.0-32.0); Mean Corpuscular Volume 94.5 fL (81-99); Mean Platelet Vol. 10.5 fl (6.2-12.0); Monocyte# 0.57 X10^3/uL; Monocyte% 6.8 % (0-10); NRBC Flagged by Analyzer 0 % (0-5); Neutrophil # 5.56 X10^3/uL (2.7-7.7); Neutrophil % 66.8 % (47-70); Platelet Count 189 K/mm3 (150-450); RBC Distribution Width CV 13.4 % (11.6-14.6); RBC Distribution Width SD 46.2 fl (35.1-43.9); Red Blood Count 2.74 M/mm3 (4.2-5.4); White Blood Count 8.3 K/mm3 (4.4-11.0)
[2019-06-06 10:20] LABS: Anion Gap 7 (5-15); BUN 48 mg/dL (7-18); BUN/Creat Ratio 19.5 RATIO (10-20); Calcium,Total 8.9 mg/dL (8.5-10.1); Chloride 112 mmol/L (98-107); Creatinine, Serum 2.46 mg/dL (0.55-1.02); EST Glomerular Filtration Rate 20 mL/min (>60); Est Glom Filt Rate - Afr Amer 25 mL/min (>60); Estimated Creatinine Clearance 17.78 ml/min; Glucose 200 mg/dL (74-106); Potassium 4.5 mmol/L (3.5-5.1); Sodium Level 139 mmol/L (136-145)
[2019-06-06 11:09] LABS: Mucous, Urine 0 SEEN /hpf (<or=2+); Red Blood Cells-Urine 0 SEEN /hpf (0-5)
[2019-06-06 11:16] LABS: Color, Urine Yellow (Yellow); Glucose, Dipstick Normal (Normal); Ketone-Dipstick Negative (Negative); Leukocyte Esterase-Dipstick 25 /ul (Negative); Nitrite-Dipstick Negative (Negative); Occult Blood-Urine Negative /ul (Negative); Protein-Dipstick 100 mg/dl (Negative); Specific Gravity, Urine 1.025 (1.002-1.030); Urine Bilirubin Dipstick Negative (Negative); Urine Clarity Clear (Clear); Urine Urobilinogen Normal (Normal)
[2019-06-06] MEDS: 0.9% Normal Saline 1,000 ML 999 ML IV ×2 (11:32→14:53)
[2019-06-06 12:01] LABS: Bacteria RARE /hpf (None Seen); Squamous Epithelial Cells - UA 0-5 SEEN /hpf (5-10); Transitional Epithelial - Ur 0-5 SEEN /hpf (0-5); White Blood Cells 0-5 SEEN /hpf (0-5)
--- NOTE | 2019-06-06 14:32 | HP.PCM_ITS ---
History of Present Illness Date of Admission: 06/06/19 Chief Complaint: weakness, lethargy The patient is a 73 year old F with a past medical history as outlined. She was admitted through the ED on 06/06/2019 with a complaint of weakness and lethargy. Patient states she had a mild heart attack about a week ago and was admitted at [facility]. She was discharged just last Wednesday. She sees whilst there, she had a cardiac catheterization which showed occlusion of 3 of 5 of her grafts but she opted for medical management as she did not want to have another CABG and she was told that stenting the arteries was not suitable option. Whilst there, she was noted to have very elevated blood pressure. She had been on only losartan prior to her admission. Losartan was stopped and she was started on carvedilol as well as hydralazine and Imdur. She states since she came home, she has been feeling weak and lethargic and has been noticed that her blood pressure has been much lower than normal. Today patient states she was going to the bathroom and felt very weak and lightheaded. found her leaning over the bathroom sink and so he brought her into the ED. Been compliant with her blood pressure medications and took all of them this morning. Admission in the ED, she was found to be hypotensive with blood pressure 90/40. Heart rate was 65 respiratory rate was 18. Chemistry showed creatinine of 2.46 with bicarb of 20 and lactic acid of 0.8. CBC showed hemoglobin of 8 but was otherwise unremarkable and platelets are 189. This x-ray done showed cardiomegaly with large hiatal hernia. During review, patient's heart rate was noted to fluctuate from the 130s and 140s down to the 60s and 70s. She did look to be in sinus rhythm. EKG done showed inferior lateral ischemia but this was present on previous EKGs from July 2018. She has been admitted to be managed for hypotension likely medication induced. [] Past Medical History Past Medical History (Chronic Problems): Chronic Problems HTN (hypertension) (Chronic) CAD (coronary artery disease) (Chronic) CKD (chronic kidney disease) stage 3, GFR 30-59 ml/min (Chronic) Anemia (Chronic) Type II diabetes mellitus (Chronic) Allergies zinc Allergy (Verified 06/06/19 09:57) blisters bandages Allergy (Uncoded 06/06/19 09:57) Hives Home Medications: Ambulatory Orders Medication Instructions Recorded Insulin Glargine [Lantus SoloStar 12 unit SQ DAILY 06/07/18 Pen] Insulin Lispro [Humalog KwikPen] 6 unit SQ DAILY 06/07/18 Aspirin [Aspir 81] 81 mg PO DAILY 06/08/18 Clopidogrel Bisulfate [Plavix] 75 mg PO DAILY #30 tablet 06/08/18 Atorvastatin Calcium 80 mg PO DAILY 06/06/19 Carvedilol 6.25 mg PO BID 06/06/19 Isosorbide Mononitrate [Isosorbide 90 mg PO DAILY 06/06/19 Mononitrate ER] Pantoprazole Sodium 40 mg PO DAILY 06/06/19 hydrALAZINE [Apresoline] 50 mg PO TID 06/06/19 Surgical History: - - CABG, appendectomy. 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 Review of Systems Constitutional: Reports: Malaise, Weakness, Fatigue. Denies: Anorexia, Chills, Fever Eyes: Denies: Blurred vision HEENT: Denies: Head Aches, Sinus Congestion, Sinus Drainage Cardiovascular: Reports: Light Headedness. Denies: Chest Pain, Edema, Heaviness, Orthopnea, Palpitations, Syncope Respiratory: Denies: Cough, Shortness of Breath, Shortness of breath at rest, Shortness of breath upon exertion, Sputum production Gastrointestinal: Denies: Abdominal Pain, Nausea, Vomiting Genitourinary: Denies: Dysuria Musculoskeletal: Denies: Joint Pain, Joint Tenderness Skin: Denies: Rash, Wounds Neurological: Denies: Numbness, Tingling, Focal weakness Psychiatric: Denies: Anxiety, Depression, Homicidal Ideations, Suicidal Ideations Hematologic/ Lymphatic: Denies: Easy Bruising, Easy Bleeding VTE Information - Inpt Only VTE Present on Admission: No VTE Pharm Prophylaxis ordered?: Yes - Physical Exam Vitals/I&O's: Vital Signs Temp Pulse Resp BP Pulse Ox 97.8 F 81 16 86/48 L 97 06/06/19 09:55 06/06/19 13:11 06/06/19 13:11 06/06/19 14:04 06/06/19 13:11 Oxygen Delivery Method Room Air Weight: 179 lb 14.355 oz Body Mass Index (BMI) 29.9 Finger Stick Blood Glucose 86 Intake and Output for Last 24 Hours 06/04/19 06/05/19 06/06/19 23:59 23:59 23:59 Intake Total 1000 / 1000 Balance 1000 / 1000 General: Alert, Oriented x3, Cooperative, Lethargic HEENT: Atraumatic, PERRLA, EOMI, Normocephalic Oral: Dry Mucosa Neck: Supple, No JVD, Negative Carotid Bruits Lungs: Clear to auscultation, Normal air movement, No rhonchi, No wheeze Cardiovascular: Regular rate, Regular Rhythm, Normal S1, Normal S2, No murmurs Abdomen: Bowel Sounds Present, Soft, Non Tender Extremities: No clubbing, No cyanosis, No edema, Capillary Refill Less than 3 Seconds Skin: No rashes, No breakdown Musculoskeletal: No Tenderness to Palpation of Joints or Extremities Lymphatic: No Cervical, Supraclavicular, or Inguinal Adenopathy Neurological: Cranial nerves II-XII grossly intact, Neuro grossly intact, Motor Exam 5/5 strength throughout Psych/Mental Status: Normal Affect, Appropriate, Alert and oriented to time, place, person, mood and affect Laboratory Results 06/06/19 09:40: WBC 8.3, RBC 2.74 L, Hgb 8.0 L, Hct 25.9 L, MCV 94.5, MCH 29.2, MCHC 30.9 L, RDW Std Deviation 46.2 H, RDW Coeff of Bre 13.4, Plt Count 189, MPV 10.5, Immature Gran % (Auto) 0.200, Neut % (Auto) 66.8, Lymph % (Auto) 22.6, [place] % (Auto) 6.8, Eos % (Auto) 3.4, Baso % (Auto) 0.2, Absolute Neuts (auto) 5.6, Absolute Lymphs (auto) 1.88, Nucleated RBC % 0 06/06/19 09:40: Sodium 139, Potassium 4.5, Chloride 112 H, Carbon Dioxide 20.0 L , Anion Gap 7, BUN 48 H, Creatinine 2.46 H, Estim Creat Clear Calc 17.78, Est GFR (MDRD) Af Amer 25 L, Est GFR (MDRD) Non-Af 20 L, BUN/Creatinine Ratio 19.5, Glucose 200 H, Calcium 8.9 06/06/19 11:00: Urine Color Yellow, Urine Clarity Clear, Urine pH 5.0, Ur Specific [place] 1.025, Urine Protein 100 H, Urine Glucose (UA) Normal, Urine Ketones Negative, Urine Occult Blood Negative, Urine Nitrite Negative, Urine Bilirubin Negative, Urine Urobilinogen Normal, Ur Leukocyte Esterase 25 H, Urine RBC 0 SEEN, Urine WBC 0-5 SEEN, Ur Squamous Epith Cells 0-5 SEEN, Ur Transition Epith Cell 0-5 SEEN, Urine Bacteria RARE, Urine Mucus 0 SEEN 06/06/19 14:10: Lactic Acid Pending Diagnostic Data Chest X-Ray 06/06/19 10:07 IMPRESSION: Cardiomegaly. Large hiatal hernia. Electronically Signed: Bertram Stephanie, at 10:55 EST , Service support , Assessment/Plan All Active Problems CVA (cerebral vascular accident) (Acute) 73 y/o admitted with a complaint of lethargy and weakness 1. Hypotension, likely medication induced * just had her meds changed at [facility] one week ago after she was admitted for a mild heart attack. Was found to have severely elevated BP and was only on losartan at that time; losartan was stopped, and she was started on PO carvedilol, hydralazine and imdur. * Blood pressure noted to be low at home. * Will hold current blood pressure medications. Hydrated with IV fluid normal saline. Received bolus of 1 L in the ED. We will give another bolus and continue with normal saline 150 cc/h x 2 bags. * Check orthostatics. * Fall precautions. * Consult PT OT. * Will check troponins as well. * 2. Sinus tachycardia * Patient's heart rate has been fluctuating as it rate was in the 60s on admission but at time I was reviewing here, it was fluctuating between the 130s and 40s in the 80s and 90s. I did appear to be in sinus rhythm. EKG done showed evidence of anterior lateral ischemia but this was present on previous EKGs from 2019. * Will cycle troponins * Hydrate with fluids as tachycardia may also be due to hypotension. * Consult cardiology if tachycardia persists. * 3. CAD s/p CABG: * Recently had a mild heart attack and opted for medical management. Cardiac cath done at [facility] showed blockage of 3/5 grafts. * On aspirin, Plavix and statin. Carvedilol currently on hold as well as Imdur. * 4. CKD stage III: Creatinine is 2.46 which is around her baseline. Will monitor. 5. Type 2 diabetes mellitus: Lantus 12 units daily. Insulin sliding scale. Accu-Cheks AC at bedtime. 6. Anemia: Hemoglobin is . Hemoglobin has been around 9-10 since 2019. Will monitor closely. Check iron panel. On pantoprazole Prophylaxis: Lovenox renally dosed Code Status: DNR CCA * Patient and counseled extensively about different types of CODE STATUS including full code, DNR CCA and DNR CCA. Patient elects to be DNRCCA. She did not want to be resuscitated at all but after extensive explanation of different types of CODE STATUS, she determined that her CODE STATUS as she preferred was DNR CCA * total [id number] time 16 minutes. Code Visit Inpatient E&M: 45489 Init Hosp L3 Procedures: 07705 Advncd Care Plan 30 Min
[2019-06-06 14:43] LABS: Lactic Acid 0.8 mmol/L (0.4-1.9)
--- NOTE | 2019-06-06 15:00 | EKG12_ITS ---
Test Reason : REPRAT EKG Blood Pressure : / mmHG Vent. Rate : 068 BPM Atrial Rate : 068 BPM P-R Int : 176 ms QRS Dur : 130 ms QT Int : 442 ms P-R-T Axes : 039 -14 162 degrees QTc Int : 469 ms Sinus rhythm with Premature supraventricular complexes Non-specific intra-ventricular conduction block Cannot rule out Anterior infarct , age undetermined T wave abnormality, consider inferolateral ischemia Abnormal ECG When compared with ECG of 06-JUN-2019 09:42, MANUAL COMPARISON REQUIRED, DATA IS UNCONFIRMED Confirmed by SHERRY CAMERON, FREDY ([id number]), desk editor YUMIKO TELLEZ ([id number]) on 06/20/2019 1:30:04 PM Referred By: HOSP Confirmed By:JENSEN POWELL MD
[2019-06-06] MEDS: 0.9% Normal Saline 1,000 ML 150 ML IV ×2 (16:28→23:07)
[2019-06-06 16:36] LABS: Bedside Glucose 279 mg/dL (70-110)
[2019-06-06] MEDS: Insulin Lispro 100 UNIT/ML INSULN.PEN SC ×2 (16:56→21:42)
[2019-06-06 22:26] LABS: Bedside Glucose 168 mg/dL (70-110)
[2019-06-07 03:00] VITALS: PULSE 70
[2019-06-07 03:40] VITALS: BP 111/54; BP 151/69; BP 159/75; PULSE 67; PULSE 74; RESP 14; TEMP 36.8; O2SAT 95
[2019-06-07] MEDS: Insulin Lispro 100 UNIT/ML INSULN.PEN SC ×2 (06:30→11:27)
[2019-06-07 06:36] LABS: Absolute Lymphocyte Count 1.93 X10^3/uL (0.83-4.51); Absolute Neutrophil Count 4.2 X10^3/uL (2.0-7.7); Basophil# 0.02 X10^3/uL; Basophil% 0.3 % (0-1); Eosinophil# 0.23 X10^3/uL; Eosinophils% 3.3 % (0-5); Hematocrit 23.6 % (37-47); Hemoglobin 7.3 g/dL (12.0-15.0); Lymphocyte # 1.93 X10^3/ul (4.0); Lymphocyte % 27.5 % (19-41); Mean Corp Hgb Conc 30.9 g/dL (32-36); Mean Corpuscular Hgb 29.4 pg (27.0-32.0); Mean Corpuscular Volume 95.2 fL (81-99); Mean Platelet Vol. 11.1 fl (6.2-12.0); Monocyte# 0.66 X10^3/uL; Monocyte% 9.4 % (0-10); NRBC Flagged by Analyzer 0 % (0-5); Neutrophil # 4.17 X10^3/uL (2.7-7.7); Neutrophil % 59.4 % (47-70); Platelet Count 178 K/mm3 (150-450); RBC Distribution Width CV 13.7 % (11.6-14.6); RBC Distribution Width SD 47.4 fl (35.1-43.9); Red Blood Count 2.48 M/mm3 (4.2-5.4)
[2019-06-07 06:53] LABS: Anion Gap 4 (5-15); BUN 45 mg/dL (7-18); BUN/Creat Ratio 18.4 RATIO (10-20); Calcium,Total 7.9 mg/dL (8.5-10.1); Chloride 119 mmol/L (98-107); Creatinine, Serum 2.45 mg/dL (0.55-1.02); EST Glomerular Filtration Rate 20 mL/min (>60); Est Glom Filt Rate - Afr Amer 25 mL/min (>60); Estimated Creatinine Clearance 17.85 ml/min; Glucose 157 mg/dL (74-106); Potassium 4.5 mmol/L (3.5-5.1); Sodium Level 142 mmol/L (136-145)
[2019-06-07 07:01] LABS: Bedside Glucose 153 mg/dL (70-110)
[2019-06-07 07:16] VITALS: PULSE 77
[2019-06-07 08:59] VITALS: BP 149/67; PULSE 78; RESP 15; TEMP 36.7; O2SAT 96
[2019-06-07] MEDS: Aspirin E.C. 81 MG Tablet PO (09:00)
[2019-06-07] MEDS: Pantoprazole Sodium 40 MG Tablet PO (09:01)
[2019-06-07] MEDS: Clopidogrel Bisulfate 75 MG Tablet PO (09:01)
[2019-06-07] MEDS: Enoxaparin 30 MG/0.3 ML Syringe SC (09:01)
[2019-06-07 11:31] LABS: Bedside Glucose 163 mg/dL (70-110)
--- NOTE | 2019-06-07 14:26 | CHAPLAIN ---
Type of Pastoral Visit _x__ Initial Visit ___ Follow-up Visit ___ On-call Visit ___ General Patient Visit ___ Spiritual Assessment ___ Family Conference ___ Bereavement ___ Rapid Response ___ Code Blue ___ Other (describe below) Pastoral Care Referral From _x__ Patient ___ Family ___ Nurse ___ Physician ___ Earth Mover ___ Ancillary Services Manager Therapy ___ Other (describe below) Sacrament/Intervention _x__ Active listening ___ Anointing ___ Restorationism ___ Bereavement ___ Communion ___ Tiesha exploration ___ _x__ Life review _x__ Prayer ___ Reconciliation ___ Sacrament of Sick _x__ Supportive presence ___ Wedding ___ Other (describe below) Pastoral Comments
[2019-06-07 15:22] LABS: Iron 30 ug/dL (50-170); Iron Binding Capacity,Total 207 ug/dL (250-450); PERCENT IRON SATURATION 14.5 % (15.0-55.0)
[2019-06-07 15:25] VITALS: PULSE 75
--- NOTE | 2019-06-07 15:31 | CASEMGMT ---
RN SMITA NOTE: To room to talk with pt. Introduced self and role of RN SMITA. Reviewed MONROY form with pt and she denies having any questions. MONROY form signed by pt, copy made and placed on chart, and original given to pt. Pt instructed to ask for CM if she has any questions/concerns. Moreno TEJEDA RN CM
[2019-06-07 15:57] VITALS: BP 137/53; PULSE 65; RESP 15; TEMP 36.7; O2SAT 94
[2019-06-07] MEDS: 0.9% Saline Lock 10 ML Syringe IV (16:00)
[2019-06-07 16:11] LABS: Bedside Glucose 129 mg/dL (70-110)
--- NOTE | 2019-06-07 16:20 | DCINST_ITS ---
You will use the following diet at home:: Calorie/Carbohydrate Controlled (specify 1200, 1400, etc) - 1800 Your food should be the consistency of: Regular Your liquids should be the consistency of: Regular/Thin Discharge Activity: Return to Normal Activity Weight Bearing Status: Full weight bearing Allergies/Adverse Reactions: Allergies zinc Allergy (Verified 06/06/19 09:57) blisters bandages Allergy (Uncoded 06/06/19 09:57) Hives Medications to take at Discharge Insulin Glargine [Lantus SoloStar Pen] 12 unit SQ DAILY 06/07/18 Insulin Lispro [Humalog KwikPen] 6 unit SQ DAILY 06/07/18 Aspirin [Aspir 81] 81 mg PO DAILY 06/08/18 Clopidogrel Bisulfate [Plavix] 75 mg PO DAILY #30 tablet 06/08/18 Atorvastatin Calcium 80 mg PO DAILY 06/06/19 Carvedilol 6.25 mg PO BID 06/06/19 Pantoprazole Sodium 40 mg PO DAILY 06/06/19 Ferrous Sulfate 325 mg PO BIDCM #1 tablet 06/07/19 Isosorbide Mononitrate [Isosorbide Mononitrate ER] 30 mg PO DAILY #1 06/07/19 Losartan Potassium 25 mg PO DAILY #1 tablet 06/07/19 hydrALAZINE [Apresoline] 25 mg PO BID #1 tablet 06/07/19 The following prescriptions were given: hydrALAZINE [Apresoline] 25 mg PO BID #1 tablet Ferrous Sulfate 325 mg PO BIDCM #1 tablet Isosorbide Mononitrate [Isosorbide Mononitrate ER] 30 mg PO DAILY #1 Losartan Potassium 25 mg PO DAILY #1 tablet Please follow up with your Primary Care Physician in: within seven days Test Results: Test results from this visit will be discussed in further detail at your follow- up appointment, if applicable. Please Follow Up With: Michele Kemp MD When: in 1-2 weeks
--- NOTE | 2019-06-09 08:06 | PCM.DC.SUM ---
Discharge Date and Diagnosis Date of Admission: 06/06/19 Date of Discharge: 06/07/19 - Primary Discharge Diagnosis #1 hypotension secondary to medication (Apresoline, Imdur) #2 coronary artery disease #3 type 2 diabetes #4 chronic kidney disease stage III secondary to type 2 diabetes #5 cerebrovascular disease #6 iron deficiency anemia-etiology unclear - Secondary Discharge Diagnosis Chronic Problems HTN (hypertension) (Chronic) CAD (coronary artery disease) (Chronic) CKD (chronic kidney disease) stage 3, GFR 30-59 ml/min (Chronic) Anemia (Chronic) Type II diabetes mellitus (Chronic) Hospital Course and Treatment Operations: None Procedures: None Summary of Care Provided: The patient is a 73 year old F was seen in the emergency room at [facility] with a chief complaint of generalized weakness, she had been hospitalized in [place] 1 to 2 weeks ago for a non-STEMI and her medications have been changed at the time of discharge from the hospital in [place]. Initial examination in the ER showed the patient's blood pressure to be low at 96/52, chest x-ray revealed no acute abnormality, creatinine was elevated at 2.46 and her BUN was 40. Patient was admitted to PCU, she was given IV fluids, and she was seen by PT and OT. Some of her medications were held. Patient was evaluated on 06/07/2019: On examination she appeared in good health and spirits. Vital signs as documented. Skin warm and dry and without overt rashes. Neck without JVD. Lungs clear. Heart exam notable for regular rhythm, normal sounds and absence of murmurs, rubs or gallops. Abdomen unremarkable and without evidence of organomegaly, masses, or abdominal aortic enlargement. Extremities nonedematous. Neuro: Cranial nerves II through XII are grossly intact, no focal motor deficits were noted, sensation to light touch and pinprick is intact. Psych: Patient is alert and oriented x3, she does not appear anxious or depressed On 06/07/2019, I had a long talk with the patient, her , and her daughter concerning her medical problems and her medications. I also talked with the patient's PCPs office concerning her renal function and her hemoglobin. It appears that her hemoglobin had dropped during her recent admission in [place] for her [id number] had undergone a cardiac catheterization during that admission. Patient's serum iron was checked and it was noted to be low and so I gave the patient an IV infusion of Venofer before I discharged her. I also changed up her medications at the time of discharge. Patient was discharged in stable condition on 06/07/2019 - Physical Exam Vitals/I&O's: Vital Signs Temp Pulse Resp BP Pulse Ox 98.0 F 65 15 137/53 H 94 06/07/19 15:57 06/07/19 15:57 06/07/19 15:57 06/07/19 15:57 06/07/19 15:57 Oxygen Delivery Method Room Air Weight: 80.2 kg Body Mass Index (BMI) 29.4 Finger Stick Blood Glucose 86 Orthostatic Vital Signs Start: 06/07/19 03:51 Freq: q24h Status: Active Protocol: Activity Type Activity Date Activity User E-Sign Co-Sign Detail Recorded Client Recorded Date Recorded By Document 06/07/19 03:40 CM [id number] 06/07/19 04:09 CM 06/07/19 03:40 Orthostatic Vitals Standing -Blood Pressure (90/60-120/80) 159/75 H -Extremity Use Right Arm -Pulse Rate (60-100) 74 Sitting -Blood Pressure (90/60-120/80) 151/69 H -Extremity Use Right Arm -Pulse Rate (60-100) 67 Lying -Blood Pressure (90/60-120/80) 111/54 L -Extremity Use Right Arm -Pulse Rate (60-100) 67 Intake and Output for Last 24 Hours 06/07/19 06/08/19 06/09/19 23:59 23:59 23:59 Intake Total 1610 / 1610 Balance 1610 / 1610 Discharge Activity: Return to Normal Activity Weight Bearing Status: Full weight bearing Home Medications: Medications to take at Discharge Insulin Glargine [Lantus SoloStar Pen] 12 unit SQ DAILY 06/07/18 Insulin Lispro [Humalog KwikPen] 6 unit SQ DAILY 06/07/18 Aspirin [Aspir 81] 81 mg PO DAILY 06/08/18 Clopidogrel Bisulfate [Plavix] 75 mg PO DAILY #30 tablet 06/08/18 Atorvastatin Calcium 80 mg PO DAILY 06/06/19 Carvedilol 6.25 mg PO BID 06/06/19 Pantoprazole Sodium 40 mg PO DAILY 06/06/19 Ferrous Sulfate 325 mg PO BIDCM #1 tab 06/07/19 Isosorbide Mononitrate [Isosorbide Mononitrate ER] 30 mg PO DAILY #1 06/07/19 Losartan Potassium 25 mg PO DAILY #1 tab 06/07/19 hydrALAZINE [Apresoline] 25 mg PO BID #1 tab 06/07/19 Following Prescrptions Were Given to Patient: hydrALAZINE [Apresoline] 25 mg PO BID #1 tab Ferrous Sulfate 325 mg PO BIDCM #1 tab Isosorbide Mononitrate [Isosorbide Mononitrate ER] 30 mg PO DAILY #1 Losartan Potassium 25 mg PO DAILY #1 tab Primary Care Physician: Petros Gambino MD [Primary Care Provider] - Please follow up with your Primary Care Physician in: within seven days Please Follow Up With: Michele Kemp MD When: in 1-2 weeks Disposition: Home Minutes spent on discharge:: 30 Patient Condition:: Stable Medical Necessity - Tobacco Use Smoking Status: Never smoker Tobacco Use: Non-smoker Meaningful Use Info Meaningful Use Diagnoses (Choose all that apply): None applicable Code Visit OBSV E&M: 11495 Observation care discharge
== END 2019-06-07 16:22 | disposition home or self-care (01) ==
LOC: ED 11:43 → PCU 15:07
PROVIDERS: Admitting Provider Student in an Organized Health Care Education/Training Program; Emergency Provider Emergency Medicine; PCP Family Medicine; Visit Provider Internal Medicine
DX: I95.2 Hypotension due to drugs (principal); T46.5X5A Adverse effect of other antihypertensive drugs, initial encounter; T46.3X5A Adverse effect of coronary vasodilators, initial encounter; I25.10 Atherosclerotic heart disease of native coronary artery without angina pectoris; I25.2 Old myocardial infarction; I12.9 Hypertensive chronic kidney disease with stage 1 through stage 4 chronic kidney disease, or unspecified chronic kidney disease; E11.22 Type 2 diabetes mellitus with diabetic chronic kidney disease; N18.3 Chronic kidney disease, stage 3 (moderate); R00.0 Tachycardia, unspecified; R00.1 Bradycardia, unspecified; I45.89 Other specified conduction disorders; D50.9 Iron deficiency anemia, unspecified; Z79.899 Other long term (current) drug therapy; Z79.4 Long term (current) use of insulin; Z79.82 Long term (current) use of aspirin; Z79.02 Long term (current) use of antithrombotics/antiplatelets; Z95.1 Presence of aortocoronary bypass graft
CPT/HCPCS: 36415; 71045; 80048; 81001; 82962; 83540; 83550; 83605; 84484; 85025; 93005; 96361; 96365; 96372; 99218; 99285; J1756; J7030; A4216; G0378

== ENCOUNTER 2019-11-07 09:19 | Observation (INO) | payer MEDICARE, OTHER, SELFPAY ==
[2019-06-06 15:40] VITALS: BMI 29.4
[2019-11-07] VITALS (12 sets, daily range): BP systolic 112–152; BP diastolic 45–65; PULSE 59–109; RESP 16–18; TEMP 36.6–37.2; O2SAT 94–98; BMI 25.2; BMI 25.7
--- NOTE | 2019-11-07 09:23 | EKG12_ITS ---
Test Reason : DIZZINESS Blood Pressure : / mmHG Vent. Rate : 059 BPM Atrial Rate : 059 BPM P-R Int : 144 ms QRS Dur : 126 ms QT Int : 492 ms P-R-T Axes : 048 -02 085 degrees QTc Int : 487 ms Atrial-sensed ventricular-paced rhythm Abnormal ECG Confirmed by SHERRY CAMERON, FREDY ([id number]), fashion editor JEANETTE SYED ([id number]) on 11/10/2019 9:06:58 AM Referred By: NATALIYA Confirmed By:JENSEN POWELL MD
--- NOTE | 2019-11-07 09:23 | RAD_ITS ---
STUDY: X-RAY CHEST REASON FOR EXAM: Female, 73 years old. WOKE WITH DIZZINESS TODAY TECHNIQUE: Single AP portable view of the chest. COMPARISON: Comparison is made with prior study dated June 06, 2019 FINDINGS: Stable minimal increased linear markings at the lung bases suggestive of scarring. There is no demonstrated pleural abnormality. Sternal cerclage wires and vascular clips are present from a prior sternotomy and coronary artery bypass graft procedure (CABG). A left-sided dual-chamber pacemaker is seen. Normal mediastinum and ana maria. Normal visualized pulmonary arteries. There is atherosclerotic calcification of the aortic arch with tortuosity. Normal visualized thoracic spine. Normal visualized ribs, clavicles, and shoulders. Hiatal hernia. RAD/Chest 1 View (Portable) IMPRESSION: No acute abnormality is seen. Electronically Signed: Bertram Brown, at 11:13 EDT , Service support ,
--- NOTE | 2019-11-07 09:25 | ED.VIS.GEN ---
History of Present Illness Chief Complaint: Dizziness Narrative: 73-year-old female with past medical history of CVA, hypertension, diabetes, coronary artery disease presents with concern for dizziness. States this began approximately 1 hour ago. States that she has been having difficulty moving her bowels and was trying to have a bowel movement when she came became profoundly dizzy. States that felt like she was going to pass out. States that it is somewhat improved but feels like she still has to have a bowel movement. Patient states that she did have a pacemaker placed 2 weeks ago at [facility]. Denies any chest pain, shortness of breath, nausea, vomiting, abdominal pain, urinary symptoms. Denies any headache, vision change, neck pain, head injury, hematochezia, melena. Past Medical History - Allergies and Home Meds Allergies/Adverse Reactions: Allergies zinc Allergy (Verified 11/07/19 09:23) blisters bandages Allergy (Uncoded 11/07/19 09:23) Hives Primary Care Physician: Petros Gambino MD [Primary Care Provider] - Prior records reviewed: Yes Past Medical History: - - CAD, HTN, DM, CVA Surgical History: pacemaker implantation, - - CABG, appendectomy. Lives: Spouse/ Significant Other Smoking Status: Never smoker Alcohol: None Drugs: None - Family History Maternal Family History: Reports: Stroke Paternal Family History: Reports: - - Patient denies any marked paternal history including heart disease, diabetes, cancer. Review of Systems General: Denies: Chills, Fever, Sweats Eyes: Denies: Visual changes - bilaterally, Diplopia ENT: Denies: Rhinorrhea, Sore throat Cardiovascular: Denies: Chest pain, Palpitations Respiratory: Denies: Dyspnea, Cough, Dyspnea on exertion Gastrointestinal: Denies: Abdominal pain, Nausea, Vomiting, Diarrhea, Melena, Hematochezia Genitourinary: Denies: Dysuria, Hematuria, Frequency Musculoskeletal: Denies: Back pain, Extremity Pain Skin: Denies: Rash, Wounds Neurological: Reports: - - dizziness. Denies: Headache, Weakness, Numbness Physical Exam Vital Signs/Narrative: Vital Signs Temp Pulse Resp BP Pulse Ox 11/07/19 09:20 98.2 F 59 L 18 130/62 H 96 Inital Vital Signs reviewed: Yes General: Well nourished, Well developed, No Acute Distress, - - Pale Head: Normocephalic, Atraumatic Eyes: Perrl, EOMI ENT: Moist mucous membranes, No rhinorrhea Neck: Supple, Nontender Cardiovascular: Regular rate, Regular rhythm, No murmurs Respiratory: No distress, CTA bilaterally, Chest nontender Abdomen: Soft, Nontender, Nondistended, Normal bowel sounds Back: Nontender, Normal Inspection Extremities: Nontender, No edema Skin: Normal color, No rash, Pallor Neurological: Alert, Oriented x3, Cranial nerves II-XII grossly intact, Normal Strength, Normal Sensation Psychological: Normal affect, Normal Mood Diagnostic/Tx/Re-eval Clinical Impression(s) from Imaging Studies Chest X-Ray 11/07/19 09:23 IMPRESSION: No acute abnormality is seen. Electronically Signed: Bertram Brown, at 11:13 EDT , Service support , Laboratory Data 11/07/19 11/07/19 09:40 09:40 WBC 7.6 RBC 2.92 L Hgb 8.7 L Hct 27.5 L MCV 94.2 MCH 29.8 MCHC 31.6 L RDW Std Deviation 46.9 H RDW Coeff of Bre 13.7 Plt Count 181 MPV 10.7 Immature Gran % (Auto) 0.300 Neut % (Auto) 69.4 Lymph % (Auto) 21.9 [place] % (Auto) 6.7 Eos % (Auto) 1.3 Baso % (Auto) 0.4 Absolute Neuts (auto) 5.3 Absolute Lymphs (auto) 1.67 Nucleated RBC % 0 Sodium 140 Potassium 4.2 Chloride 112 H Carbon Dioxide 22.0 Anion Gap 6 BUN 59 H Creatinine 2.72 H Estim Creat Clear Calc 16.08 Est GFR (MDRD) Af Amer 22 L Est GFR (MDRD) Non-Af 18 L BUN/Creatinine Ratio 21.7 H Glucose 196 H Calcium 9.2 Total Bilirubin 1.00 AST 20 ALT 21 Alkaline Phosphatase 62 Troponin I < 0.015 Total Protein 6.9 Albumin 3.1 L Globulin 3.8 Albumin/Globulin Ratio 0.8 L - Rhythm Strip Rhythm Strip: Paced Rate: 59 Ectopy: None - EKG Initial EKG Interpretation: - - Atrial sensed ventricular paced rhythm at 59 bpm. PA interval 144 ms. QRS 126 ms. QTC of 487 ms. No evidence of ischemia at this time. - Medical Decision Making Appears pale but otherwise nontoxic. Vital signs within normal limits. Patient has a chronic anemia which is at baseline. Patient also has a chronic kidney disease which is at her baseline. However her BUN is elevated from her baseline indicating possible volume depletion. When orthostatic testing was performed patient was unable to stand given her dizziness. She was given 4 mg of Zofran. Troponin and EKG nonischemic. Given the patient's persistent dizziness and presyncope she will be admitted to the hospital for further observation. Patient will be given a total of 1 L of normal saline. Impression: 1. Syncope 2. Volume depletion 3. Chronic anemia 4. Chronic kidney disease ED Disposition - Plan for ED Patient: Disposition: Acute Care Hospital [facility] Referrals: Petros Gambino MD [Primary Care Provider] -
[2019-11-07 10:00] LABS: Absolute Lymphocyte Count 1.67 X10^3/uL (0.83-4.51); Absolute Neutrophil Count 5.3 X10^3/uL (2.0-7.7); Basophil# 0.03 X10^3/uL; Basophil% 0.4 % (0-1); Eosinophils% 1.3 % (0-5); Hematocrit 27.5 % (37-47); Hemoglobin 8.7 g/dL (12.0-15.0); Lymphocyte # 1.67 X10^3/ul (4.0); Lymphocyte % 21.9 % (19-41); Mean Corp Hgb Conc 31.6 g/dL (32-36); Mean Corpuscular Hgb 29.8 pg (27.0-32.0); Mean Corpuscular Volume 94.2 fL (81-99); Mean Platelet Vol. 10.7 fl (6.2-12.0); Monocyte# 0.51 X10^3/uL; Monocyte% 6.7 % (0-10); NRBC Flagged by Analyzer 0 % (0-5); Neutrophil # 5.28 X10^3/uL (2.7-7.7); Neutrophil % 69.4 % (47-70); Platelet Count 181 K/mm3 (150-450); RBC Distribution Width CV 13.7 % (11.6-14.6); RBC Distribution Width SD 46.9 fl (35.1-43.9); Red Blood Count 2.92 M/mm3 (4.2-5.4); White Blood Count 7.6 K/mm3 (4.4-11.0)
[2019-11-07 10:24] LABS: ALB/GLOB Ratio 0.8 RATIO (0.9-2.4); AST(SGOT) 20 U/L (15-37); Alanine Aminotransfer ALT/SGPT 21 U/L (13-56); Albumin, Serum 3.1 g/dL (3.2-5.0); Alkaline Phosphatase 62 U/L (45-117); Anion Gap 6 (5-15); BUN 59 mg/dL (7-18); BUN/Creat Ratio 21.7 RATIO (10-20); Calcium,Total 9.2 mg/dL (8.5-10.1); Chloride 112 mmol/L (98-107); Creatinine, Serum 2.72 mg/dL (0.55-1.02); EST Glomerular Filtration Rate 18 mL/min (>60); Est Glom Filt Rate - Afr Amer 22 mL/min (>60); Estimated Creatinine Clearance 16.08 ml/min; Globulin 3.8 g/dL (2.2-4.2); Glucose 196 mg/dL (74-106); Potassium 4.2 mmol/L (3.5-5.1); Protein, Total 6.9 g/dL (6.4-8.2); Sodium Level 140 mmol/L (136-145)
--- NOTE | 2019-11-07 10:28 | ED.RN ---
pt unable to do orthos at first attempt due to dizziness. will try after fluid bolus
[2019-11-07] MEDS: Ondansetron 4 MG/2 ML Vial IV (11:18)
--- NOTE | 2019-11-07 11:19 | NURSING ---
DR VICENTE FOR DR AN
--- NOTE | 2019-11-07 11:25 | ED.RN ---
bertram lambert--daughter--support person
--- NOTE | 2019-11-07 11:33 | NURSING ---
117 OBS TERELETSKY SYNCOPE
--- NOTE | 2019-11-07 12:08 | ED.RN ---
attempt by this nurse to read pacemaker without success
[2019-11-07] MEDS: 0.9% Normal Saline 1,000 ML 100 ML IV ×2 (13:17→22:16)
--- NOTE | 2019-11-07 14:32 | CHAPLAIN ---
Type of Pastoral Visit _x__ Initial Visit ___ Follow-up Visit ___ On-call Visit ___ General Patient Visit ___ Spiritual Assessment ___ Family Conference ___ Bereavement ___ Rapid Response ___ Code Blue ___ Other (describe below) Pastoral Care Referral From _x__ Patient _x__ Family _x__ Nurse ___ Physician ___ Audit Associate ___ Education Dean ___ Other (describe below) Sacrament/Intervention _x__ Active listening ___ Anointing ___ Anabaptist ___ Bereavement ___ Communion _x__ Tiesha exploration ___ _x__ Life review _x__ Prayer ___ Reconciliation ___ Sacrament of Sick _x__ Supportive presence ___ Wedding ___ Other (describe below) Pastoral Comments patient exhibiting anxiety by her report from people not listening; asked to define meaning of her statement pt refers to people ignoring COVID19 precautions, being isolated in her home, tensions with spouse due to home together 'all the time', and fixation to news; pt given opportunity to talk, focus on what is helpful and healing in her life, and consideration of her tiesha tradition; pt welcomes spiritual care support and prayer; pt open to further visits; daughter of pt is present throughout this encounter
--- NOTE | 2019-11-07 15:14 | PCM.HP.STD ---
Problem List (1) Syncope Status: Acute (2) Anemia Status: Chronic Qualifiers: Anemia type: unspecified type Qualified Code(s): D64.9 - Anemia, unspecified (3) CAD (coronary artery disease) Status: Chronic Qualifiers: Coronary Disease-Associated Artery/Lesion type: unspecified vessel or lesion type [place] vs. transplanted heart: unspecified whether [place] or transplanted heart Associated angina: angina presence unspecified Qualified Code(s): I25.10 - Atherosclerotic heart disease of [place] coronary artery without angina pectoris (4) CKD (chronic kidney disease) stage 3, GFR 30-59 ml/min Status: Chronic (5) HTN (hypertension) Status: Chronic Qualifiers: Hypertension type: essential hypertension Qualified Code(s): I10 - Essential (primary) hypertension (6) Type II diabetes mellitus Status: Chronic Qualifiers: Diabetes mellitus group home insulin use: with long term care social worker use Diabetes mellitus complication status: with unspecified complications History of Present Illness Date of Admission: 11/07/19 Chief Complaint: syncope The patient is a 73 year old F with pmhx of vasovagal syncope, otherwise as above who presented to the ER with syncope. She has been in her normal state of health with no recent changes, or illness. Today she was straining to have a bowel movement, stood up, became lightheaeded, and passed out. Fortunately she was caught by her daughter. She woke up clammy and nauseous. She now feels back to normal. She had this happen to her once before. She has chronic constipation and was told not to strain for this reason. She has no chest pain, no SOB, no palpitations, no LH/dizziness, no LE edema. [] Past Medical History Past Medical History (Chronic Problems): Chronic Problems HTN (hypertension) (Chronic) CAD (coronary artery disease) (Chronic) CKD (chronic kidney disease) stage 3, GFR 30-59 ml/min (Chronic) Anemia (Chronic) Type II diabetes mellitus (Chronic) Allergies zinc Allergy (Mild, Verified 11/07/19 12:45) blisters bandages Allergy (Mild, Uncoded 11/07/19 12:45) Hives Home Medications: Ambulatory Orders Medication Instructions Recorded Insulin Glargine [Lantus SoloStar 8 unit SQ DAILY 06/07/18 Pen] Insulin Lispro [Humalog KwikPen] 6 unit SQ DAILY 06/07/18 Atorvastatin Calcium 80 mg PO DAILY 06/06/19 Carvedilol 6.25 mg PO BID 06/06/19 Clopidogrel Bisulfate [Plavix] 75 mg PO DAILY 11/07/19 Ferrous Sulfate 325 mg PO BIDCM 11/07/19 Furosemide [Lasix] 20 mg PO DAILY 11/07/19 Isosorbide Mononitrate [Isosorbide 30 mg PO DAILY 11/07/19 Mononitrate ER] Losartan Potassium 25 mg PO DAILY 11/07/19 Pyridoxine HCl [Vitamin B-6] 100 mg PO DAILY 11/07/19 hydrALAZINE [Apresoline] 25 mg PO BID 11/07/19 Surgical History: pacemaker implantation, - - CABG, appendectomy. 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 Review of Systems Constitutional: Denies: Chills, Fever, Weight Change HEENT: Denies: Head Aches, Sinus Congestion, Sinus Drainage Cardiovascular: Denies: Chest Pain, Palpitations Respiratory: Denies: Cough, Shortness of breath at rest, Sputum production Gastrointestinal: Denies: Abdominal Pain, Nausea, Vomiting Genitourinary: Denies: Dysuria Musculoskeletal: Denies: Joint Pain, Joint Tenderness Skin: Denies: Rash, Wounds Neurological: Denies: Numbness, Tingling, Focal weakness Psychiatric: Denies: Anxiety, Depression, Homicidal Ideations, Suicidal Ideations Hematologic/ Lymphatic: Denies: Easy Bruising, Easy Bleeding VTE Information - Inpt Only VTE Present on Admission: No VTE Mechan Device Prophylaxis: None VTE Pharm Prophylaxis ordered?: Yes Patient Problems: Active and Suspected Problems Syncope (Acute) - Physical Exam Vitals/I&O's: Vital Signs Temp Pulse Resp BP Pulse Ox 97.9 F 66 16 145/55 H 94 11/07/19 12:29 11/07/19 13:28 11/07/19 12:29 11/07/19 12:34 11/07/19 12:29 Oxygen Delivery Method Room Air Weight: 154 lb 8.705 oz Body Mass Index (BMI) 25.7 Finger Stick Blood Glucose 206 Intake and Output for Last 24 Hours 11/05/19 11/06/19 11/07/19 23:59 23:59 23:59 Intake Total 500 / 500 Balance 500 / 500 General: Alert, Oriented x3, Cooperative HEENT: Atraumatic, PERRLA, EOMI, Normocephalic Neck: Supple, No JVD, Negative Carotid Bruits Lungs: Clear to auscultation, Normal air movement Cardiovascular: Regular rate, No murmurs Abdomen: Bowel Sounds Present, Soft, Non Tender Extremities: No edema, Capillary Refill Less than 3 Seconds Skin: No rashes, No breakdown Musculoskeletal: No Tenderness to Palpation of Joints or Extremities Neurological: Cranial nerves II-XII grossly intact Psych/Mental Status: Normal Affect, Appropriate Laboratory Results 11/07/19 09:40: WBC 7.6, RBC 2.92 L, Hgb 8.7 L, Hct 27.5 L, MCV 94.2, MCH 29.8, MCHC 31.6 L, RDW Std Deviation 46.9 H, RDW Coeff of Bre 13.7, Plt Count 181, MPV 10.7, Immature Gran % (Auto) 0.300, Neut % (Auto) 69.4, Lymph % (Auto) 21.9, [place] % (Auto) 6.7, Eos % (Auto) 1.3, Baso % (Auto) 0.4, Absolute Neuts (auto) 5.3, Absolute Lymphs (auto) 1.67, Nucleated RBC % 0 11/07/19 09:40: Sodium 140, Potassium 4.2, Chloride 112 H, Carbon Dioxide 22.0, Anion Gap 6, BUN 59 H, Creatinine 2.72 H, Estim Creat Clear Calc 16.08, Est GFR (MDRD) Af Amer 22 L, Est GFR (MDRD) Non-Af 18 L, BUN/Creatinine Ratio 21.7 H, Glucose 196 H, Calcium 9.2, Total Bilirubin 1.00, AST 20, ALT 21, Alkaline Phosphatase 62, Troponin I < 0.015, Total Protein 6.9, Albumin 3.1 L, Globulin 3.8, Albumin/Globulin Ratio 0.8 L 11/07/19 14:35: Sodium Pending, Potassium Pending, Chloride Pending, Carbon Dioxide Pending, Anion Gap Pending, BUN Pending, Creatinine Pending, Est GFR (MDRD) Af Amer Pending, Est GFR (MDRD) Non-Af Pending, BUN/Creatinine Ratio Pending, Glucose Pending, Calcium Pending Current Medications Aspirin (Ecotrin) 81 mg PO DAILY@0800 [facility] Atorvastatin Calcium (Lipitor) 80 mg PO DAILY@2200 [facility] Carvedilol (Coreg) 6.25 mg PO BID [facility] Clopidogrel Bisulfate (Plavix) 75 mg PO DAILY [facility] Dextrose (D50w Syringe) 0 gm IV X1 PRN; Protocol PRN Reason: Hypoglycemia Ferrous Sulfate (Ferrous Sulfate) 325 mg PO BID@1200,1700 [facility] Furosemide (Lasix) 20 mg PO DAILY [facility] Glucagon () 1 mg IM .X1 PRN PRN Reason: Hypoglycemia Heparin Sodium (Porcine) (Heparin Na) 5,000 unit SC Q12 [facility] Sodium Chloride () 1,000 mls @ 100 mls/hr IV .Q10H [facility] Last Admin: 11/07/19 13:17 Dose: 100 mls/hr Documented by: Insulin Glargine (Lantus (Bkc)) 12 units SC DAILY [facility] Insulin Human Lispro (Humalog Kwikpen (Bk)) 0 unit SC ACHS [facility]; Protocol Isosorbide Mononitrate (Imdur) 30 mg PO DAILY [facility] Losartan Potassium (Cozaar) 25 mg PO DAILY [facility] Magnesium Hydroxide (Milk Of Magnesia) 30 ml PO DAILY PRN PRN PRN Reason: Constipation Pantoprazole Sodium (Protonix) 40 mg PO DAILY [facility] Sodium Chloride () 10 - 40 ml IV UD PRN PRN Reason: SALINE FLUSH Assessment/Plan All Active Problems CVA (cerebral vascular accident) (Acute) Syncope (Acute) 1. Syncope - vasovagal by hx, similar to prior episode, due to straining from constipation. Provide IVF and stool softeners. Negative orthos. Pacer check normal. Somewhat elevated BUN/Cr. Trop neg. CXR neg. 2. CKD IV - baseline. 3. CAD - asa/statin/plavix/coreg/imdur/losartan 4. HTN - mildly elevated. 5. Hx CVA - asa/statin/plavix 6. DMt2 - lantus, SSI DVT ppx: heparin DC planning: likely home tomorrow. This patient was seen by Lane Nogueira PA-C under the supervision of Dr. Coronado.
[2019-11-07 15:17] LABS: Anion Gap 5 (5-15); BUN 55 mg/dL (7-18); BUN/Creat Ratio 21.8 RATIO (10-20); Calcium,Total 8.6 mg/dL (8.5-10.1); Chloride 113 mmol/L (98-107); Creatinine, Serum 2.52 mg/dL (0.55-1.02); EST Glomerular Filtration Rate 20 mL/min (>60); Est Glom Filt Rate - Afr Amer 24 mL/min (>60); Estimated Creatinine Clearance 17.36 ml/min; Glucose 184 mg/dL (74-106); Potassium 4.6 mmol/L (3.5-5.1); Sodium Level 140 mmol/L (136-145)
[2019-11-07] MEDS: Ferrous Sulfate 325 MG Tablet PO (16:49)
[2019-11-07] MEDS: Insulin Lispro 100 UNIT/ML INSULN.PEN SC ×2 (16:49→22:15)
[2019-11-07] MEDS: Magnesium Hydroxide 30 ML UDC PO (16:50)
[2019-11-07 16:56] LABS: Bedside Glucose 186 mg/dL (70-110)
[2019-11-07] MEDS: Heparin Injection (Vial) 5,000 UNIT/ML VIAL 5000 UNIT SC (22:15)
[2019-11-07] MEDS: Carvedilol 6.25 MG Tablet PO (22:16)
[2019-11-07] MEDS: Atorvastatin Calcium 80 MG Tablet PO (22:16)
[2019-11-07] MEDS: MELATONIN 3 MG TABLET PO (22:16)
[2019-11-07 22:31] LABS: Bedside Glucose 159 mg/dL (70-110)
[2019-11-08] VITALS (7 sets, daily range): BP systolic 121–150; BP diastolic 42–61; PULSE 56–139; RESP 16–18; TEMP 36.7–36.8; O2SAT 97–98
[2019-11-08 06:40] LABS: Bedside Glucose 107 mg/dL (70-110)
[2019-11-08 06:58] LABS: Absolute Lymphocyte Count 2.11 X10^3/uL (0.83-4.51); Absolute Neutrophil Count 2.5 X10^3/uL (2.0-7.7); Basophil# 0.02 X10^3/uL; Basophil% 0.4 % (0-1); Eosinophils% 1.9 % (0-5); Hematocrit 25.7 % (37-47); Lymphocyte # 2.11 X10^3/ul (4.0); Lymphocyte % 40.5 % (19-41); Mean Corp Hgb Conc 31.1 g/dL (32-36); Mean Corpuscular Hgb 29.6 pg (27.0-32.0); Mean Corpuscular Volume 95.2 fL (81-99); Mean Platelet Vol. 9.9 fl (6.2-12.0); Monocyte# 0.46 X10^3/uL; Monocyte% 8.8 % (0-10); NRBC Flagged by Analyzer 0 % (0-5); Neutrophil # 2.51 X10^3/uL (2.7-7.7); Neutrophil % 48.2 % (47-70); Platelet Count 157 K/mm3 (150-450); RBC Distribution Width CV 13.7 % (11.6-14.6); RBC Distribution Width SD 47.2 fl (35.1-43.9); White Blood Count 5.2 K/mm3 (4.4-11.0)
[2019-11-08 07:20] LABS: BUN 57 mg/dL (7-18); Creatinine, Serum 2.49 mg/dL (0.55-1.02); EST Glomerular Filtration Rate 20 mL/min (>60); Estimated Creatinine Clearance 17.57 ml/min; Glucose 115 mg/dL (74-106)
[2019-11-08 07:21] LABS: Anion Gap 2 (5-15); BUN/Creat Ratio 22.9 RATIO (10-20); Calcium,Total 8.2 mg/dL (8.5-10.1); Chloride 118 mmol/L (98-107); Est Glom Filt Rate - Afr Amer 24 mL/min (>60); Potassium 4.4 mmol/L (3.5-5.1); Sodium Level 144 mmol/L (136-145)
[2019-11-08] MEDS: 0.9% Normal Saline 1,000 ML 100 ML IV (08:19)
[2019-11-08] MEDS: Aspirin E.C. 81 MG Tablet PO (08:23)
--- NOTE | 2019-11-08 09:05 | DCINST_ITS ---
- Discharge Diagnoses Current Active Problems: Current Active and Chronic Problems Syncope (Acute) You will use the following diet at home:: No restrictions Your food should be the consistency of: Regular Your liquids should be the consistency of: Regular/Thin Discharge Activity: Return to Normal Activity Weight Bearing Status: Full weight bearing Allergies/Adverse Reactions: Allergies zinc Allergy (Mild, Verified 11/07/19 12:45) blisters bandages Allergy (Mild, Uncoded 11/07/19 12:45) Hives Medications to take at Discharge Insulin Glargine [Lantus SoloStar Pen] 8 unit SQ DAILY 06/07/18 Insulin Lispro [Humalog KwikPen] 6 unit SQ DAILY 06/07/18 Atorvastatin Calcium 80 mg PO DAILY 06/06/19 Carvedilol 6.25 mg PO BID 06/06/19 Clopidogrel Bisulfate [Plavix] 75 mg PO DAILY 11/07/19 Ferrous Sulfate 325 mg PO BIDCM 11/07/19 Furosemide [Lasix] 20 mg PO DAILY 11/07/19 Isosorbide Mononitrate [Isosorbide Mononitrate ER] 30 mg PO DAILY 11/07/19 Losartan Potassium 25 mg PO DAILY 11/07/19 Pyridoxine HCl [Vitamin B-6] 100 mg PO DAILY 11/07/19 hydrALAZINE [Apresoline] 25 mg PO BID 11/07/19 Clopidogrel Bisulfate [Plavix] 75 mg PO DAILY tab 11/08/19 Ferrous Sulfate 325 mg PO BID@1200,1700 tab 11/08/19 Isosorbide Mononitrate [Imdur] 30 mg PO DAILY tab 11/08/19 Losartan Potassium [Cozaar] 25 mg PO DAILY tab 11/08/19 Primary Care Physician: Petros Gambino MD [Primary Care Provider] - Please follow up with your Primary Care Physician in: as scheduled Test Results: Test results from this visit will be discussed in further detail at your follow- up appointment, if applicable.
[2019-11-08] MEDS: Furosemide 20 MG Tablet PO (09:53)
[2019-11-08] MEDS: Carvedilol 6.25 MG Tablet PO (09:53)
[2019-11-08] MEDS: Clopidogrel Bisulfate 75 MG Tablet PO (09:53)
[2019-11-08] MEDS: Pantoprazole Sodium 40 MG Tablet PO (09:53)
[2019-11-08] MEDS: Isosorbide Mononitrate 30 MG Tablet PO (09:53)
[2019-11-08] MEDS: Losartan Potassium 25 MG Tablet PO (09:53)
[2019-11-08 10:05] LABS: Bedside Glucose 209 mg/dL (70-110)
--- NOTE | 2019-11-08 10:16 | PHA.DC.MC ---
Pharmacy Service has performed discharge medication reconciliation and counseling for this patient. 1. MILK OF MAGNESIA 30ML PO DAILY PRN CONSTIPATION The patient's discharge medication list was reviewed for discrepancies and discrepancies were resolved. Home Medications Insulin Glargine [Lantus SoloStar Pen] 8 unit SQ DAILY 06/07/18 Insulin Lispro [Humalog KwikPen] 6 unit SQ DAILY 06/07/18 Atorvastatin Calcium 80 mg PO DAILY 06/06/19 Carvedilol 6.25 mg PO BID 06/06/19 Clopidogrel Bisulfate [Plavix] 75 mg PO DAILY 11/07/19 Ferrous Sulfate 325 mg PO BIDCM 11/07/19 Furosemide [Lasix] 20 mg PO DAILY 11/07/19 Isosorbide Mononitrate [Isosorbide Mononitrate ER] 30 mg PO DAILY 11/07/19 Losartan Potassium 25 mg PO DAILY 11/07/19 Pyridoxine HCl [Vitamin B-6] 100 mg PO DAILY 11/07/19 hydrALAZINE [Apresoline] 25 mg PO BID 11/07/19 Magnesium Hydroxide [Milk Of Magnesia] 30 ml PO DAILY PRN PRN #1 bottle 11/08/19 The patient was counseled on the following discharge medications and changes in medications for homegoing were reviewed. The Reason for Use, instructions for use, and potential side effects were reviewed for all new medications. The patient's questions regarding all of their medications were answered. The patient was able to verbally demonstrate an understanding of their discharge medications.
--- NOTE | 2019-11-08 14:06 | PCM.DC.SUM ---
Discharge Date and Diagnosis Date of Admission: 11/07/19 Date of Discharge: 11/08/19 - Primary Discharge Diagnosis Acute Problems: Syncope 2/2 vasovagal due to constipation and straining CKDIV CAD HTN Hx CVA Dmt2 - Secondary Discharge Diagnosis Chronic Problems: Chronic Problems HTN (hypertension) (Chronic) CAD (coronary artery disease) (Chronic) CKD (chronic kidney disease) stage 3, GFR 30-59 ml/min (Chronic) Anemia (Chronic) Type II diabetes mellitus (Chronic) Hospital Course and Treatment Imaging Results: RAD/Chest 1 View (Portable) IMPRESSION: No acute abnormality is seen. Operations: None Procedures: None Summary of Care Provided: Hospital course: The patient is a 73 year old F with a past medical history of syncope due to straining when trying to have a bowel movement, otherwise as above, who presented to the emergency room with syncope. This occurred after she stood up from straining to have a bowel movement. She became lightheaded and dizzy and passed out. Fortunately she was caught by her daughter. She came to the emergency room and had negative troponin, negative chest x-ray, negative EKG. She was admitted for sent for syncope work-up. She had a pacemaker interrogation that was negative. She is given IV fluids overnight and her blood pressure medicines were held. She had no further issues overnight. Patient was started on stool softeners to assist with movement of her bowels. She was strongly advised against straining to move her bowels. She was discharged home in stable condition. She will need to follow with her PCP in 1 to 2 weeks. This patient was seen by Lane Nogueira PA-C under the supervision of Doctor Ivonne. [] - Physical Exam Vitals/I&O's: Vital Signs Temp Pulse Resp BP Pulse Ox 98.3 F 66 16 123/52 H 98 11/08/19 09:50 11/08/19 09:50 11/08/19 09:50 11/08/19 09:50 11/08/19 09:50 Oxygen Delivery Method Room Air Weight: 154 lb 8.705 oz Body Mass Index (BMI) 25.7 Finger Stick Blood Glucose 206 Orthostatic Vital Signs Start: 11/07/19 16:03 Freq: q24h Status: Active Protocol: Activity Type Activity Date Activity User E-Sign Co-Sign Detail Recorded Client Recorded Date Recorded By Document 11/08/19 06:23 VALERIO [id number] 11/08/19 06:24 VALERIO 11/08/19 06:23 Orthostatic Vitals Standing -Blood Pressure (90/60-120/80) 133/61 H -Extremity Use Right Arm -Pulse Rate (60-100) 70 Sitting -Blood Pressure (90/60-120/80) 150/60 H -Extremity Use Right Arm -Pulse Rate (60-100) 64 Lying -Blood Pressure (90/60-120/80) 137/57 H -Extremity Use Right Arm -Pulse Rate (60-100) 68 Intake and Output for Last 24 Hours 11/06/19 11/07/19 11/08/19 23:59 23:59 23:59 Intake Total 1798.33 / 1798.33 1168.33 / 1168.33 Output Total 650 / 650 Balance 1798.33 / 1798.33 518.33 / 518.33 General: Alert, Oriented x3, Cooperative HEENT: Atraumatic, PERRLA, EOMI, Normocephalic Neck: Supple, No JVD, Negative Carotid Bruits Lungs: Clear to auscultation, Normal air movement Cardiovascular: Regular rate, No murmurs Abdomen: Bowel Sounds Present, Soft, Non Tender Extremities: No edema, Capillary Refill Less than 3 Seconds Skin: No rashes, No breakdown Musculoskeletal: No Tenderness to Palpation of Joints or Extremities Neurological: Cranial nerves II-XII grossly intact Psych/Mental Status: Normal Affect, Appropriate Laboratory Results 11/07/19 14:35: Sodium 140, Potassium 4.6, Chloride 113 H, Carbon Dioxide 22.0, Anion Gap 5, BUN 55 H, Creatinine 2.52 H, Estim Creat Clear Calc 17.36, Est GFR (MDRD) Af Amer 24 L, Est GFR (MDRD) Non-Af 20 L, BUN/Creatinine Ratio 21.8 H, Glucose 184 H, Calcium 8.6 11/07/19 16:46: POC Glucose 186 H 11/07/19 22:14: POC Glucose 159 H 11/08/19 06:33: POC Glucose 107 11/08/19 06:35: Sodium 144, Potassium 4.4, Chloride 118 H, Carbon Dioxide 24.0, Anion Gap 2 L, BUN 57 H, Creatinine 2.49 H, Estim Creat Clear Calc 17.57, Est GFR (MDRD) Af Amer 24 L, Est GFR (MDRD) Non-Af 20 L, BUN/Creatinine Ratio 22.9 H, Glucose 115 H, Calcium 8.2 L 11/08/19 06:35: WBC 5.2, RBC 2.70 L, Hgb 8.0 L, Hct 25.7 L, MCV 95.2, MCH 29.6, MCHC 31.1 L, RDW Std Deviation 47.2 H, RDW Coeff of Bre 13.7, Plt Count 157, MPV 9.9, Immature Gran % (Auto) 0.200, Neut % (Auto) 48.2, Lymph % (Auto) 40.5, [place] % (Auto) 8.8, Eos % (Auto) 1.9, Baso % (Auto) 0.4, Absolute Neuts (auto) 2.5, Absolute Lymphs (auto) 2.11, Nucleated RBC % 0 11/08/19 09:58: POC Glucose 209 H Discharge Diet: Low fat/ Low Cholesterol, 2000 mg Sodium Diet Discharge Activity: Return to Normal Activity Weight Bearing Status: Full weight bearing Home Medications: Medications to take at Discharge Insulin Glargine [Lantus SoloStar Pen] 8 unit SQ DAILY 06/07/18 Insulin Lispro [Humalog KwikPen] 6 unit SQ DAILY 06/07/18 Atorvastatin Calcium 80 mg PO DAILY 06/06/19 Carvedilol 6.25 mg PO BID 06/06/19 Clopidogrel Bisulfate [Plavix] 75 mg PO DAILY 11/07/19 Ferrous Sulfate 325 mg PO BIDCM 11/07/19 Furosemide [Lasix] 20 mg PO DAILY 11/07/19 Isosorbide Mononitrate [Isosorbide Mononitrate ER] 30 mg PO DAILY 11/07/19 Losartan Potassium 25 mg PO DAILY 11/07/19 Pyridoxine HCl [Vitamin B-6] 100 mg PO DAILY 11/07/19 hydrALAZINE [Apresoline] 25 mg PO BID 11/07/19 Magnesium Hydroxide [Milk Of Magnesia] 30 ml PO DAILY PRN PRN #1 bottle 11/08/19 Following Prescrptions Were Given to Patient: Magnesium Hydroxide [Milk Of Magnesia] 30 ml PO DAILY PRN PRN #1 bottle PRN Reason: Constipation Transmission Status: Received by [facility] Primary Care Physician: Petros Gambino MD [Primary Care Provider] - Please follow up with your Primary Care Physician in: as scheduled Please Follow Up With: Petros Gambino MD When: 1-2 weeks Disposition: Home Minutes spent on discharge:: 35 Medical Necessity - Tobacco Use Smoking Status: Never smoker Meaningful Use Info Meaningful Use Diagnoses (Choose all that apply): None applicable
== END 2019-11-08 09:07 | disposition home or self-care (01) ==
LOC: ED 11:13 → PCU 11:47
PROVIDERS: Physician Assistant; Admitting Provider Internal Medicine; Emergency Provider Emergency Medicine; PCP Family Medicine; Visit Provider Internal Medicine
DX: I95.1 Orthostatic hypotension (principal); K59.09 Other constipation; E11.22 Type 2 diabetes mellitus with diabetic chronic kidney disease; I12.9 Hypertensive chronic kidney disease with stage 1 through stage 4 chronic kidney disease, or unspecified chronic kidney disease; N18.4 Chronic kidney disease, stage 4 (severe); I25.10 Atherosclerotic heart disease of native coronary artery without angina pectoris; D64.9 Anemia, unspecified; Z86.73 Personal history of transient ischemic attack (TIA), and cerebral infarction without residual deficits; Z79.899 Other long term (current) drug therapy; Z79.02 Long term (current) use of antithrombotics/antiplatelets; Z79.4 Long term (current) use of insulin; Z95.0 Presence of cardiac pacemaker; Z95.1 Presence of aortocoronary bypass graft
CPT/HCPCS: 36415; 71045; 80048; 80053; 82962; 84484; 85025; 93005; 96361; 96372; 96374; 99218; 99285; J7030; A4216; G0378; J2405

== ENCOUNTER 2020-08-17 12:52 | Emergency (ER) | payer MEDICARE, OTHER, SELFPAY ==
[2019-11-07 12:27] VITALS: BMI 25.7
[2020-08-17 12:53] VITALS: BP 172/77; PULSE 64; RESP 18; TEMP 35.5; O2SAT 97; BMI 25.0
--- NOTE | 2020-08-17 12:59 | RAD_ITS ---
STUDY: X-RAY - LEFT ANKLE REASON FOR EXAM: Female, 74 years old. Injury. Pain. TECHNIQUE: 3 view(s) of the ankle. COMPARISON: None. FINDINGS: There is a subtle lucency in the lateral malleolus which may represent a nondisplaced fracture. There are mild degenerative changes. There is soft tissue swelling noted. There are no radiodense foreign bodies. RAD/Ankle min 3 Views IMPRESSION: Subtle lucency in the lateral malleolus which may represent a nondisplaced fracture. Soft tissue swelling. Electronically Signed: Harry Goss MD at 14:03 EDT Tel , Service support ,
--- NOTE | 2020-08-17 12:59 | ED.VIS.GEN ---
History of Present Illness Chief Complaint: Lower Extremity Injury Informant: Patient, Significant Other Onset: Hours Context: Sudden Onset Timing: Continuous Quality: Pain Location: Outside of left ankle Current Severity: Mild Maximum Severity: Severe Worsened by: Attempt to bear weight Relieved by: Nonweightbearing and elevation Associated Symptoms: None Narrative: Patient is an elderly woman who states she bumped into the leg of the sofa. She had pain immediately. She was unable to bear weight since. She does have history of prior stroke. She denies history of neuropathy. She denies history of peripheral vascular disease. She denies prior injury. Prior similar symptoms: No Recent Illness/Hospitalization: No - Past Medical History (1) CVA (cerebral vascular accident) Status: Acute (2) Anemia Status: Chronic (3) CAD (coronary artery disease) Status: Chronic (4) CKD (chronic kidney disease) stage 3, GFR 30-59 ml/min Status: Chronic (5) HTN (hypertension) Status: Chronic (6) Type II diabetes mellitus Status: Chronic Past Medical History - Allergies and Home Meds Allergies/Adverse Reactions: Allergies zinc Allergy (Mild, Verified 08/17/20 12:53) blisters bandages Allergy (Mild, Uncoded 08/17/20 12:53) Hives Primary Care Physician: Petros Gambino MD [Primary Care Provider] - Prior records reviewed: Yes Surgical History: pacemaker implantation, - - CABG, appendectomy. Lives: Spouse/ Significant Other Smoking Status: Never smoker Alcohol: None Drugs: None - Family History Maternal Family History: Reports: Stroke Paternal Family History: Reports: - - Patient denies any marked paternal history including heart disease, diabetes, cancer. Review of Systems General: Denies: Fever, Malaise Musculoskeletal: Reports: Swelling, Extremity Pain. Denies: Myalgias, Arthralgias, Neck pain, Back pain Skin: Denies: Rash, Wounds Neurological: Denies: Weakness, Parasthesia, Numbness Hematologic: Denies: Easy bruising, Easy bleeding Physical Exam Vital Signs/Narrative: Vital Signs Temp Pulse Resp BP Pulse Ox 08/17/20 12:53 96 F L 64 18 172/77 H 97 Inital Vital Signs reviewed: Yes General: Well nourished, Well developed, No Acute Distress Head: Normocephalic, Atraumatic Eyes: Perrl, EOMI Cardiovascular: Regular rate, Regular rhythm Respiratory: No distress Extremities: No edema, Tenderness, - - There is pain the patient of the lateral malleolus posteriorly. There is no pain ovation of the medial malleolus. There is no laxity with drawer testing. DP and PT pulse are palpable. There is no pain palpation at the base of the fifth metatarsal. Skin: Normal color, No rash, Trauma. Negative for: Cyanosis, Diaphoresis, Jaundice Neurological: Alert, Oriented x3, Cranial nerves II-XII grossly intact, Normal Strength, Normal Sensation. Negative for: Normal Gait Psychological: Normal affect Diagnostic/Tx/Re-eval Chest X-Ray - ED: Read by ED Physician, - - Three-view x-ray of the ankle was performed and there appears to be a nondisplaced Perry type a lateral malleolus/distal fibula fracture. There is significant soft tissue swelling noted. Will treat with walking shoe and refer to Dr. Blood. - Medical Decision Making The patient's past medical history she was medicated with [place] and x-ray was obtained to rule out fracture versus contusion. ED Disposition - Plan for ED Patient: Disposition: Home or Assisted Living Diagnosis: Nondisplaced fracture of lateral malleolus of right fibula, initial encounter for closed fracture Instructions: ED Ankle Fracture, Distal Fibula Prescriptions: Oxycodone HCl/Acetaminophen [Percocet 5/325] 1 tablet PO Q6H PRN PRN 5 Days #20 tablet PRN Reason: Ankle pain Transmission Status: Sent to [facility]30 Referrals: Petros Gambino MD [Primary Care Provider] - Flakito Santana DPM [STAFF PHYSICIAN] - 5-7 Days Additional Instructions: Elevate your ankle as much as possible Apply ice 6-8 times a day When you are up and about wear walking boot
[2020-08-17] MEDS: HYDROcodone Bitartrate/Apap 5/325 Tablet PO (13:07)
== END 2020-08-17 14:41 | disposition home or self-care (01) ==
PROVIDERS: Emergency Provider Emergency Medicine; PCP Family Medicine
DX: S82.64XA Nondisplaced fracture of lateral malleolus of right fibula, initial encounter for closed fracture (principal); W22.8XXA Striking against or struck by other objects, initial encounter; Y93.9 Activity, unspecified; Y92.9 Unspecified place or not applicable; Y99.9 Unspecified external cause status; I25.10 Atherosclerotic heart disease of native coronary artery without angina pectoris; I12.9 Hypertensive chronic kidney disease with stage 1 through stage 4 chronic kidney disease, or unspecified chronic kidney disease; E11.22 Type 2 diabetes mellitus with diabetic chronic kidney disease; N18.30 Chronic kidney disease, stage 3 unspecified; D63.1 Anemia in chronic kidney disease; Z95.0 Presence of cardiac pacemaker; Z95.1 Presence of aortocoronary bypass graft; Z79.899 Other long term (current) drug therapy; Z86.73 Personal history of transient ischemic attack (TIA), and cerebral infarction without residual deficits
CPT/HCPCS: 73610; 99283

== ENCOUNTER 2020-11-20 08:00 | Outpatient (RCR) | payer MEDICARE, OTHER, SELFPAY ==
--- NOTE | 2020-10-09 10:05 | HP.PTEVAL_ITS ---
Patient's Visit Information PHILL JACKSON is a 74 year old F referred to Physical Therapy by PERRI SharpM with a diagnosis of L lateral ankle fracture. Date of Evaluation: 10/09/20 Physical Therapist: Munir Johnson, PT, ATC - Visit Plan Frequency: 2x /Week Duration: 4-6 Weeks Plan: L ankle stretching and strengthening, mobs, balance and proprio, bike, and HEP - Subjective DOI: 6 weeks ago. Pt reports she fractured her L ankle getting off her recliner couch at home. Pt reports she was placed into a boot for 3 weeks, and after being x-rayed was taken out of the boot and has been walking in a regular shoe since. Pt reports she is here to day because she likes to go on walks and feels a little unsafe and wants to feel more comfortable with that task. Pt also notes she feels a little unbalanced and has difficulty with stair negotiation. Pt reports she also had a mild stroke 2 years ago which she still feels a little residual weakness from. Pt reports occasional tingling and numbness in L LE. No sleep difficulty at this time secondary to pain. 2/10 pain at rest, 8/10 at worst (prolonged standing or walking) - Pain L ankle Pain Intensity (Out of 10): 2 Pain Intensity Range: 8 - Objective Neuro: B LE sensation is WNL to light touch. ROM: R ankle DF= -5, PF= 55. L ankle DF= -10, PF= 55. MMT: L ankle eversion= 3+/5, all other motions 4/5. R ankle 5/5 throughout. Girth: B ankle's 48 cm - Goals Goal 1:: Decrease L ankle pain x 50% to aide with stair negotiation Goal Time Frame: 4-6 Weeks Goal 2:: Increase L ankle strength x 1 grade to aid with IADL's Goal Time Frame: 4-6 Weeks Goal 3:: Increase L ankle DF ROM x 10 degrees to aid with restoring a more normalized gait pattern Goal Time Frame: 4-6 Weeks Goal 4:: I with HEP Goal Time Frame: 4-6 Weeks - Rehabilitation Potential Physical Therapy Diagnosis: L ankle pain, weakness, and limited mobility secondary to L ankle Fx. Rehabilitation Potential: Good - Anticipated Interventions Patient/Client Instruction: Educate patient on: Condition, Plan of Care For the Purpose of:: To improve self management Therapeutic Exercise to Include: Strength training, Endurance training, Balance training, Flexibilty training, Gait and locomotor training, Passive ROM, Active ROM, Dynamic Lumbar Stabilization For the Purpose of:: To decrease pain, To increase ROM, To improve muscle performance and motor function Manual Therapy Techniques to Include: Mobilization, Passive ROM For the Purpose of:: To decrease pain, To increase ROM Cryotherapy (ice pack, ice massage): Yes For the Purpose of:: To decrease pain Thank you for the opportunity to evaluate your patient. For Medicare and Medicare HMO plans, please review the plan of care and approve it. It will need to be FAXED BACK to us at [phone] for Medicare purposes. For Medicare only, by signing this I certify the plan of care. Please let me know if there are questions or concerns regarding this plan of care. Physician Signature: Date:
--- NOTE | 2020-11-01 07:56 | HP.PTREVAL ---
Dr. Flakito Santana, DPM, It has been my pleasure to treat PHILL JACKSON over the last 7 visits for L lateral ankle fracture- goes by Danielle. Please see the progress note below for an update on the physical therapy plan of care! Subjective: I am getting better. My balance is what bothers me the most. Objective/Function: L ankle pain is still 7/10. Pt reports difficulty with standing for a prolonged period of time. L ankle MMT: L ankle is grossly 4/5 throughout with the exception of eversion 4-/5. L ankle DF ROM: -5 degrees. Pt is showing progress toward Rx goals, but would benefit from further skilled PT for strengthening and ROM activities Plan Plan: L ankle stretching and strengthening, mobs, balance and proprio, bike, and HEP Goals Goal 1:: Decrease L ankle pain x 50% to aide with stair negotiation Goal Time Frame: 4-6 Weeks Goal Progress: Progressing Goal 2:: Increase L ankle strength x 1 grade to aid with IADL's Goal Time Frame: 4-6 Weeks Goal Progress: Progressing Goal 3:: Increase L ankle DF ROM x 10 degrees to aid with restoring a more normalized gait pattern Goal Time Frame: 4-6 Weeks Goal Progress: Progressing Goal 4:: I with HEP Goal Time Frame: 4-6 Weeks Goal Progress: Progressing Anticipated Interventions Patient/Client Instruction: Educate patient on: Condition, Plan of Care For the Purpose of:: To improve self management Therapeutic Exercise to Include: Strength training, Endurance training, Balance training, Flexibilty training, Gait and locomotor training, Passive ROM, Active ROM, Dynamic Lumbar Stabilization For the Purpose of:: To decrease pain, To increase ROM, To improve muscle performance and motor function Manual Therapy Techniques to Include: Mobilization, Passive ROM For the Purpose of:: To decrease pain, To increase ROM Cryotherapy (ice pack, ice massage): Yes For the Purpose of:: To decrease pain Please do not hesitate to contact me at [phone] by phone or if you have questions or concerns regarding this new plan of care! Sincerely, Munir Johnson, PT, ATC
--- NOTE | 2021-02-28 12:53 | HP.PT.NRP ---
PHILL JACKSON was seen in my office for initial evaluation on 10/09/20. The following Plan of Care was established for this patient: Initial Frequency: 2x /Week Initial Duration: 4-6 Weeks Patient/Client Instruction: Educate patient on: Condition, Plan of Care For the Purpose of:: To improve self management Therapeutic Exercise to Include: Strength training, Endurance training, Balance training, Flexibilty training, Gait and locomotor training, Passive ROM, Active ROM, Dynamic Lumbar Stabilization For the Purpose of:: To decrease pain, To increase ROM, To improve muscle performance and motor function Manual Therapy Techniques to Include: Mobilization, Passive ROM For the Purpose of:: To decrease pain, To increase ROM Cryotherapy (ice pack, ice massage): Yes For the Purpose of:: To decrease pain This patient was last seen in our office . Pertinent comments regarding their Physical therapy will appear below: Pt was treated for12 PT visits secondary to L ankle pain through the date of 11/20/20. Pt has not returned through todays date and is discontinued at this time. At this point I will be discontinuing this patient from physical therapy. I would be happy to see this patient again in the future if found appropriate by the physician. Thank you! Munir Johnson, PT, ATC Balance/Gait/Functional tests - Balance/Special Test Scores Lower Extremity Functional Score: 62
== END 2020-11-20 19:00 | disposition home or self-care (01) ==
LOC: PT 08:00
PROVIDERS: PCP Family Medicine; Referring Provider Podiatrist; Visit Provider Podiatrist
DX: S83.62XD Sprain of the superior tibiofibular joint and ligament, left knee, subsequent encounter (principal); X58.XXXD Exposure to other specified factors, subsequent encounter
CPT/HCPCS: 97110; 97161; 97164

== ENCOUNTER 2022-07-26 14:31 | Inpatient (IN) | payer MEDICARE, OTHER, SELFPAY ==
[2022-07-26 14:32] VITALS: BP 111/55; PULSE 78; RESP 14; TEMP 36.4; O2SAT 98; BMI 25.2
--- NOTE | 2022-07-26 15:19 | RAD_ITS ---
EXAM: XR RIGHT FOOT COMPLETE, 3 OR MORE VIEWS CLINICAL INDICATION: pain PT STATES SHE FELL ON WEDNESDAY WITH C/O RIGHT ANKLE AND LEFT SHOULDER BRUISE. PT STATES SOMETIMES HER MEDS MAKE HER DIZZY PT HAS BEEN USING ANKLE BRACE WITH NO RELIEF. UNABLE TO BEAR WEIGHT TECHNIQUE: Frontal, lateral and oblique views of the right foot. This report was created using [employer] report generation technology. COMPARISON: None. FINDINGS: BONES/JOINTS: There is a calcaneal spur. Degenerative findings of the first metatarsophalangeal joint. No acute fracture. No subluxation. Normal alignment. No sclerotic or destructive changes observed. SOFT TISSUES: Soft tissue swelling around the mid foot. No radiopaque foreign body. VASCULATURE: Vascular calcifications. RAD/Foot min 3 Views IMPRESSION: 1. Soft tissue swelling around the mid foot. 2. Degenerative findings of the first metatarsophalangeal joint. Electronically Signed: Munir Tate MD at 15:49 EDT ,
--- NOTE | 2022-07-26 15:20 | EKG12_ITS ---
Test Reason : Blood Pressure : / mmHG Vent. Rate : 069 BPM Atrial Rate : 069 BPM P-R Int : 138 ms QRS Dur : 128 ms QT Int : 476 ms P-R-T Axes : 046 110 181 degrees QTc Int : 510 ms Atrial-sensed ventricular-paced rhythm Abnormal ECG Confirmed by SHERRY CAMERON, FREDY ([id number]), field map editor JEANETTE SYED ([id number]) on 07/29/2022 10:03:16 AM Referred By: Confirmed By:JENSEN POWELL MD
--- NOTE | 2022-07-26 15:21 | ED.VIS.LOWEX ---
HPI History of Present Illness Chief Complaint: Lower Extremity Injury Narrative Narrative: 76-year-old female presenting with right ankle and foot pain. She states that a couple of days ago she felt lightheaded and fell hitting her right ankle. She states she has been able to hobble a little bit on this but mostly has been sitting around. She states that she thinks she gets lightheaded because of her blood pressure medicine that she takes. She currently takes losartan 50 mg daily, hydralazine 25 mg p.o. twice daily, carvedilol 6.25 mg. She is also on Lasix. Patient does not have any chest pain or shortness of breath. [facility] Medical History Anemia CAD (coronary artery disease) CKD (chronic kidney disease) stage 3, GFR 30-59 ml/min CVA (cerebral vascular accident) HTN (hypertension) Type 2 diabetes mellitus Home Medications insulin glargine 100 unit/mL (3 mL) subcutaneous pen (Lantus Solostar U-100 Insulin) 5 unit SQ DAILY diabetes 06/07/18 [History Last Taken 11/07/19 07:30] insulin lispro 100 unit/mL subcutaneous pen (Humalog KwikPen (U-100) Insulin) 3 unit SQ DAILY diabetes 06/07/18 [History Last Taken 11/07/19 07:30] atorvastatin 80 mg tablet 80 mg PO DAILY cholesterol 06/06/19 [History Last Taken 11/06/19 23:00] carvedilol 6.25 mg tablet 6.25 mg PO BID blood pressure 06/06/19 [History Last Taken 11/07/19 07:30] clopidogrel 75 mg tablet 75 mg PO DAILY anti platelet 11/07/19 [History Last Taken 11/07/19 07:30] ferrous sulfate 325 mg (65 mg iron) tablet 325 mg PO BIDCM supplement 11/07/19 [History Last Taken 11/07/19 07:30] furosemide 20 mg tablet 20 mg PO DAILY diuretic 11/07/19 [History Last Taken 11/07/19 07:30] hydralazine 50 mg tablet 25 mg PO BID diuretic 11/07/19 [History Last Taken 11/07/19 07:30] isosorbide mononitrate 30 mg tablet,extended release 24 hr 30 mg PO DAILY heart 11/07/19 [History Last Taken 11/07/19 07:30] losartan 25 mg tablet 50 mg PO DAILY blood pressure 11/07/19 [History Last Taken 11/07/19 07:30] pyridoxine (vitamin B6) 100 mg tablet 100 mg PO DAILY vitamin 11/07/19 [History Last Taken 11/07/19 07:30] pantoprazole 40 mg tablet,delayed release 40 mg PO DAILY 07/26/22 [History Last Taken Unknown] Allergy/AdvReac Type Severity Reaction Status Date / Time adhesive Allergy Mild Hives Verified 07/26/22 14:35 zinc Allergy Mild blisters Verified 07/26/22 14:35 Surgical History no surgical history Social History Smoking Status: Never smoker ROS ROS ED Constitutional Constitutional ED: Denies chills or fever(s) Eyes Eyes: Denies change in vision or diplopia ENT ENT ED: Denies rhinorrhea or sore throat Cardiovascular Cardiovascular: Reports other Details: Lightheadedness ; Denies chest pain or palpitations Respiratory/Chest Respiratory/Chest: Denies cough or dyspnea Gastrointestinal Gastrointestinal: Denies abdominal pain or constipation Genitourinary Genitourinary ED: Denies dysuria or hematuria Musculoskeletal Musculoskeletal: Reports other Details: Right ankle and foot pain and ; Denies arthralgias or back pain Integumentary Denies abscess Neurologic Neurologic: Denies headache(s) Psychiatric Psychiatric: Denies anxiety or depression EXAM Physical Exam Const Vital Signs: 07/26/22 14:32 Temperature 97.5 F L Temperature Source Temporal Pulse Rate 78 Respiratory Rate 14 Blood Pressure 111/55 L Blood Pressure Mean 73 Pulse Ox 98 Oxygen Delivery Method Room Air Positive well nourished General Appearance ED: NAD HEENT Reports moist mucous membranes normocephalic and atraumatic Resp normal respiratory effort Cardio regular rate and regular rhythm Extremity Extremity Narrative: Tenderness palpation over the medial aspect and lateral aspect of the right malleolus region. There is edema on the right. Lateral malleolus. He is has edema on the right side of the lower foot. Tenderness to palpation is on the medial aspect of the foot. MDM MDM MDM Narrative Medical decision making narrative: Patient presenting with right ankle and foot pain but states she was also lightheaded. She states this is worse with standing. She states this is why she fell and injured herself. X-rays of the right ankle and right foot on my interpretation show no acute fracture. I did obtain an EKG because she is lightheaded to assess for arrhythmia and her EKG is paced at 69 bpm without sign of ischemic change. Chest x-ray was obtained and on my interpretation shows no acute process. CBC shows normal white blood cell count 10.5. Hemoglobin baseline at 9.0. Platelet count 200. Creatinine is acutely elevated at 4.39 I can call 9. High-sensitivity troponin 38. Given the patient's acute kidney injury and lightheadedness I felt she needed to be admitted to the hospital. I spoke with hospitalist who is in agreement. Patient admitted in stable condition. Impression: 1. KEIKO 2. Right ankle contusion 3. Right foot contusion 4. Fall Lab Data Labs: Laboratory Results - last 24 hr 07/26/22 07/26/22 15:40 15:40 WBC 10.5 RBC 2.89 L Hgb 9.0 L Hct 29.3 L MCV 101.4 H MCH 31.1 MCHC 30.7 L RDW Std Deviation 51.9 H RDW Coeff of Bre 13.9 Plt Count 200 MPV 10.1 Immature Gran % (Auto) 0.400 Neut % (Auto) 79.5 H Lymph % (Auto) 9.7 L [place] % (Auto) 10.0 Eos % (Auto) 0.2 Baso % (Auto) 0.2 Absolute Neuts (auto) 8.3 H Absolute Lymphs (auto) 1.02 Nucleated RBC % 0 Differential Comment SCANNED Sodium 140 Potassium 4.9 Chloride 113 H Carbon Dioxide 20.0 L Anion Gap 7 BUN 69 H Creatinine 4.39 H Estim Creat Clear Calc 9.50 Est GFR (MDRD) Af Amer 13 L Est GFR (MDRD) Non-Af 10 L BUN/Creatinine Ratio 15.7 Glucose 162 H Calcium 8.7 Troponin I High Sens 38 Radiography Diagnostic Testing: Clinical Impression(s) from Imaging Studies Foot X-Ray 07/26/22 15:19 IMPRESSION: 1. Soft tissue swelling around the mid foot. 2. Degenerative findings of the first metatarsophalangeal joint. Electronically Signed: Munir Tate MD at 15:49 EDT , Ankle X-Ray 07/26/22 15:27 IMPRESSION: There is soft tissue swelling. Electronically Signed: Munir Tate MD at 15:51 EDT Reading Location ID and State: [address] [place] [address] , Service support , Discharge Plan Triage Chief Complaint: Lower Extremity Injury ED Provider: Giancarlo Villa Dx/Rx/DC Orders Primary Care Provider: Petros Gambino
--- NOTE | 2022-07-26 15:27 | RAD_ITS ---
STUDY: XR Ankle Min 3 Views REASON FOR EXAM: Female, 76 years old. ANKLE PAIN TECHNIQUE: XR Ankle Min 3 Views RIGHT COMPARISON: None. FINDINGS: Normal visualized distal tibia and fibula. Normal medial and lateral malleoli. Normal tibiotalar articulation and ankle mortise. The visualized subtalar, talonavicular, calcaneocuboid and tarsal articulations are normal. There is a plantar calcaneal spur. There is soft tissue swelling around the ankle. RAD/Ankle min 3 Views IMPRESSION: There is soft tissue swelling. Electronically Signed: Munir Tate MD at 15:51 EDT ,
[2022-07-26 15:47] LABS: Absolute Lymphocyte Count 1.02 X10^3/uL (0.83-4.51); Absolute Neutrophil Count 8.3 X10^3/uL (2.0-7.7); Basophil# 0.02 X10^3/uL; Basophil% 0.2 % (0-1); Eosinophil# 0.02 X10^3/uL; Eosinophils% 0.2 % (0-5); Hematocrit 29.3 % (37-47); Lymphocyte # 1.02 X10^3/ul (0.83-4.51); Lymphocyte % 9.7 % (19-41); Mean Corp Hgb Conc 30.7 g/dL (32-36); Mean Corpuscular Hgb 31.1 pg (27.0-32.0); Mean Corpuscular Volume 101.4 fL (81-99); Mean Platelet Vol. 10.1 fl (6.2-12.0); Monocyte# 1.05 X10^3/uL; NRBC Flagged by Analyzer 0 % (0-5); Neutrophil # 8.33 X10^3/uL (2.7-7.7); Neutrophil % 79.5 % (47-70); POSITIVE COUNT YES; Platelet Count 200 K/mm3 (150-450); RBC Distribution Width CV 13.9 % (11.6-14.6); RBC Distribution Width SD 51.9 fl (35.1-43.9); Red Blood Count 2.89 M/mm3 (4.2-5.4); White Blood Count 10.5 K/mm3 (4.4-11.0)
[2022-07-26 15:53] LABS: Differential Indicated SCAN CRITERIA MET
[2022-07-26 16:04] LABS: Anion Gap 7 (5-15); BUN 69 mg/dL (7-18); BUN/Creat Ratio 15.7 RATIO (10-20); Calcium,Total 8.7 mg/dL (8.5-10.1); Chloride 113 mmol/L (98-107); Creatinine, Serum 4.39 mg/dL (0.55-1.02); EST Glomerular Filtration Rate 10 mL/min (>60); Est Glom Filt Rate - Afr Amer 13 mL/min (>60); Glucose 162 mg/dL (74-106); Potassium 4.9 mmol/L (3.5-5.1); Sodium Level 140 mmol/L (136-145); Troponin-I HS 38 pg/mL (3.0-54.0)
[2022-07-26 16:09] LABS: Differential Comment SCANNED
--- NOTE | 2022-07-26 16:20 | RAD_ITS ---
EXAM: XR CHEST, 1 VIEW CLINICAL INDICATION: weakness TECHNIQUE: Frontal view of the chest. This report was created using [employer] report generation technology. COMPARISON: 11.07.19 FINDINGS: LUNGS AND PLEURAL SPACES: Unremarkable. No consolidation or edema. No pneumothorax. No effusion. HEART: Unremarkable. Cardiac silhouette not enlarged. MEDIASTINUM: Hiatal hernia. BONES/JOINTS: Median sternotomy wires. Multiple median sternotomy wires are noted consistent for cardiac surgery. SOFT TISSUES: Unremarkable. RAD/Chest 1 View (Portable) IMPRESSION: No acute findings in the chest. Electronically Signed: Munir Tate MD at 16:57 EDT ,
[2022-07-26 16:46] VITALS: BP 141/68; PULSE 70; RESP 16; O2SAT 98
--- NOTE | 2022-07-26 17:00 | HP.PCM.HOS_ITS ---
HPI - General General Date of Admission: 07/26/22 Date of Service: 07/26/22 Chief Complaint: R ankle pain HPI Narrative PHILL JACKSON, is a 76 F with a history of CVA, CKD stage IV, type 2 diabetes mellitus on insulin, heart failure with reduced ejection fraction, CAD who presented to [facility]18 due to right ankle pain. She had an episode of lightheadedness on afternoon when she stood up to walk and fell and hit her left shoulder and right ankle. She is sat on the couch most of the past few days due to the pain and says she can barely walk on it. She presented for the pain and x-ray within normal limits however her creatinine was found to be 4.39 and most recent in clinic think in April was 3. She reports feeling tired in general but did not voice any other complaints. On further ROS however she has been having some diarrhea since Wednesday but denies vomiting or abdominal upset, says she is always cold but denies fevers or chills. Reports she has had good p.o. intake however her reports that she has not been eating as well. Takes Lasix and losartan. [facility] Medical History Anemia CAD (coronary artery disease) CKD (chronic kidney disease) stage 3, GFR 30-59 ml/min CVA (cerebral vascular accident) HTN (hypertension) Type 2 diabetes mellitus Home Medications insulin glargine 100 unit/mL (3 mL) subcutaneous pen (Lantus Solostar U-100 Insulin) 5 unit SQ DAILY diabetes 06/07/18 [History Last Taken 11/07/19 07:30] insulin lispro 100 unit/mL subcutaneous pen (Humalog KwikPen (U-100) Insulin) 3 unit SQ DAILY diabetes 06/07/18 [History Last Taken 11/07/19 07:30] atorvastatin 80 mg tablet 80 mg PO DAILY cholesterol 06/06/19 [History Last Taken 11/06/19 23:00] carvedilol 6.25 mg tablet 6.25 mg PO BID blood pressure 06/06/19 [History Last Taken 11/07/19 07:30] clopidogrel 75 mg tablet 75 mg PO DAILY anti platelet 11/07/19 [History Last Taken 11/07/19 07:30] ferrous sulfate 325 mg (65 mg iron) tablet 325 mg PO BIDCM supplement 11/07/19 [History Last Taken 11/07/19 07:30] furosemide 20 mg tablet 20 mg PO DAILY diuretic 11/07/19 [History Last Taken 11/07/19 07:30] hydralazine 50 mg tablet 25 mg PO BID diuretic 11/07/19 [History Last Taken 11/07/19 07:30] isosorbide mononitrate 30 mg tablet,extended release 24 hr 30 mg PO DAILY heart 11/07/19 [History Last Taken 11/07/19 07:30] losartan 25 mg tablet 50 mg PO DAILY blood pressure 11/07/19 [History Last Taken 11/07/19 07:30] pyridoxine (vitamin B6) 100 mg tablet 100 mg PO DAILY vitamin 11/07/19 [History Last Taken 11/07/19 07:30] pantoprazole 40 mg tablet,delayed release 40 mg PO DAILY 07/26/22 [History Last Taken Unknown] Allergy/AdvReac Type Severity Reaction Status Date / Time adhesive Allergy Mild Hives Verified 07/26/22 14:35 zinc Allergy Mild blisters Verified 07/26/22 14:35 Surgical History no surgical history Social History Smoking Status: Never smoker ROS ROS Narrative General: Denies fever/chills, does report she is always cold HENT: Denies headache, denies stuffy nose, slight sore throat EYES: Denies changes in vision Resp: Denies cough, denies shortness of breath Cardiac: Denies chest pain GI: Denies abdominal pain, has had diarrhea since Wednesday, denies nausea/vomiting : Denies changes in urination Extremity: Has swelling right ankle but no bilateral swelling MSK: Feels generally tired and somewhat weak Neuro: Denies any numbness/tingling Heme: Denies any bleeding or bruising Skin: Denies rashes Psychiatric: No complaints voiced Vital Signs Vital Signs Vital Signs: 07/26/22 14:32 07/26/22 16:46 Temperature 97.5 F L Temperature Source Temporal Pulse Rate 78 70 Respiratory Rate 14 16 Blood Pressure 111/55 L 141/68 H Blood Pressure Mean 73 92 Pulse Ox 98 98 Oxygen Delivery Method Room Air Room Air Weight Weight: 68.8 kg Body Mass Index (BMI) 25.2 Physical Exam Narrative General: Alert, oriented, no apparent distress HEENT: Atraumatic, normocephalic Eyes: Anicteric, normal conjunctiva, extraocular movements grossly intact Neck: Supple Respiratory: Clear to auscultation bilaterally, normal respiratory effort Cardiovascular: Regular rate and rhythm GI: Soft, nontender, nondistended Extremities: Right ankle with smelling on top of the foot and ankle with pain on palpation on both medial and lateral sides Musculoskeletal: Moving all extremities Neuro: No overt focal neurological deficits Skin: No rashes appreciated Psych: Cooperative Results Lab / Micro Data Result Diagrams: 07/26/22 15:40 07/26/22 15:40 Labs: Laboratory Results - last 24 hr 07/26/22 15:40: WBC 10.5, RBC 2.89 L, Hgb 9.0 L, Hct 29.3 L, MCV 101.4 H, MCH 31.1, MCHC 30.7 L, RDW Std Deviation 51.9 H, RDW Coeff of Bre 13.9, Plt Count 200, MPV 10.1, Immature Gran % (Auto) 0.400, Neut % (Auto) 79.5 H, Lymph % (Auto) 9.7 L, [place] % (Auto) 10.0, Eos % (Auto) 0.2, Baso % (Auto) 0.2, Absolute Neuts (auto) 8.3 H, Absolute Lymphs (auto) 1.02, Nucleated RBC % 0, Differential Comment SCANNED 07/26/22 15:40: Sodium 140, Potassium 4.9, Chloride 113 H, Carbon Dioxide 20.0 L , Anion Gap 7, BUN 69 H, Creatinine 4.39 H, Estim Creat Clear Calc 9.50, Est GFR (MDRD) Af Amer 13 L, Est GFR (MDRD) Non-Af 10 L, BUN/Creatinine Ratio 15.7, Glucose 162 H, Calcium 8.7, Troponin I High Sens 38 Radiology Impression Foot X-Ray 07/26/22 15:19 IMPRESSION: 1. Soft tissue swelling around the mid foot. 2. Degenerative findings of the first metatarsophalangeal joint. Electronically Signed: Munir Tate MD at 15:49 EDT , Ankle X-Ray 07/26/22 15:27 IMPRESSION: There is soft tissue swelling. Electronically Signed: Munir Tate MD at 15:51 EDT Reading Location ID and State: [facility] / [place] , Service support , Chest X-Ray 07/26/22 16:20 IMPRESSION: No acute findings in the chest. 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 transplanted heart: unspecified whether [place] or transplanted heart Associated angina: angina presence unspecified Qualified Code(s): I25.10 - Atherosclerotic heart disease of [place] coronary artery without angina pectoris (4) CVA (cerebral vascular accident): QUALIFIERS: CVA mechanism: embolism Laterality of affected vessel: unspecified (5) Fall: (6) Right ankle pain: (7) Pre-syncope: PLAN: Plan #KEIKO on CKD stage IV -We will give very gentle hydration given her acute function and history of heart failure we will hold Lasix and losartan -We will obtain urine studies and kidney ultrasound -Low threshold to involve nephrology if not improving -Denies taking any ibuprofen or Advil for pain, had only taken acetaminophen. Denies medication changes leading up to this -Follows with a kidney doctor at the [facility] Dr. Snell and has an appointment with him this coming Wednesday #R ankle pain -X-ray with soft tissue swelling, no fracture -Elevation, as needed pain medication -May need more advanced imaging pending progress -We will also add topical pain cream -PT consulted #Episode of Presycnope s/p fall -Likely due to volume depletion, reports she has had some diarrhea since Wednesday and she does take Lasix as well as losartan and has been reports suboptimal p.o. intake -Had 1 episode that resulted in the fall and denies any further though has not been quite as mobile -Will monitor on telemetry for now though very low suspicion that this is an arrhythmia especially she has a defibrillator that did not fire and she appears volume depleted and the lightheadedness was after going from sitting to standing and walking for several steps -Orthostatic vital signs -Troponin 38, EKG with heart rate of 69 without ischemic changes -Chest x-ray no acute process -Very gentle hydration -Hold Lasix -We will obtain respiratory and enteric pathogens #Type 2 diabetes mellitus -Glucose checks and sliding scale insulin -Continue 5 units of long-acting #Hx HFrEF status post defibrillator 2 years ago -Daily weights, I's and O's -Continue very low-dose beta-radha, holding losartan given kidney function, holding Imdur and hydralazine but will resume when able -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 However she endorses having a defibrillator placed and based on history sounds that she has heart failure with reduced ejection fra ction in addition #CAD/hx cva -Continue aspirin, statin, Plavix -Continue beta-radha but a very small dose, is not hypotensive #DVT ppx: Heparin subcu Brunilda Bell MD Time spent in the patient's overall evaluation,decision-making process, review of diagnostic data, adjustment of management, discussion with other providers, nursing nursing and ancillary staff involved in patient's care documentation, 60 minutes Charges/Coding Visit Charges Inpatient E&M: 02237 Init Hosp L2
[2022-07-26 17:22] VITALS: BP 141/68; PULSE 70; RESP 16; TEMP 36.7; O2SAT 98
[2022-07-26 17:55] LABS: Ferritin 141 ng/mL (8-252); Iron 19 ug/dL (50-170); Iron Binding Capacity,Total 234 ug/dL (250-450)
[2022-07-26 17:57] VITALS: BP 146/68; PULSE 72; RESP 18; TEMP 37.3; O2SAT 96; BMI 24.1
[2022-07-26 18:34] VITALS: BP 142/62; BP 152/72; BP 155/70; PULSE 74; PULSE 75
[2022-07-26] MEDS: 0.9% Normal Saline 1,000 ML 50 ML IV (18:48)
[2022-07-26] MEDS: 0.9% Saline Lock 10 ML Syringe IV (18:48)
--- NOTE | 2022-07-26 18:58 | NURSING ---
This RN called [facility] to inform them of resp panel order. This RN performed orthostatic vital signs but pt had a hard time standing up. Pt felt dizzy when standing up and bp monitor when through two cycles before reading her bp.
[2022-07-26 19:11] LABS: Bedside Glucose 128 mg/dL (74-106)
[2022-07-26] MEDS: Acetaminophen 325 MG Tablet 650 MG PO (19:29)
[2022-07-26 21:49] VITALS: BP 130/53; PULSE 72; RESP 14; TEMP 37.6; O2SAT 96
[2022-07-26] MEDS: Atorvastatin Calcium 80 MG Tablet PO (21:54)
[2022-07-26] MEDS: Carvedilol 3.125 MG TABLET PO (21:54)
[2022-07-26] MEDS: Heparin Injection (Vial) 5,000 UNIT/ML VIAL 5000 UNIT SC (21:54)
[2022-07-26] MEDS: MELATONIN 3 MG TABLET PO (21:54)
[2022-07-26] MEDS: Insulin Lispro 100 UNIT/ML INSULN.PEN SC (22:00)
[2022-07-26 22:15] LABS: Bedside Glucose 219 mg/dL (74-106)
[2022-07-27] MEDS: oxyCODONE 5 MG Tablet PO (00:26)
[2022-07-27 00:32] VITALS: BP 129/54; PULSE 65; RESP 14; TEMP 37.3; O2SAT 95
[2022-07-27 05:17] VITALS: BMI 24.5
[2022-07-27 05:40] LABS: Urea Nitrogen, Urine 522 mg/dL (NO RANGE EST.); Urine Chloride 47 mmol/L (Not Establ.); Urine Sodium 43 mmol/L (Not Establ.)
[2022-07-27 05:45] VITALS: BP 121/75; PULSE 73; RESP 16; TEMP 37.1; O2SAT 93
[2022-07-27] MEDS: Heparin Injection (Vial) 5,000 UNIT/ML VIAL 5000 UNIT SC ×3 (05:51→20:33)
[2022-07-27] MEDS: Acetaminophen 325 MG Tablet 650 MG PO (05:56)
[2022-07-27 06:21] LABS: Bedside Glucose 104 mg/dL (74-106)
[2022-07-27 06:34] LABS: Absolute Lymphocyte Count 1.37 X10^3/uL (0.83-4.51); Absolute Neutrophil Count 4.7 X10^3/uL (2.0-7.7); Basophil# 0.02 X10^3/uL; Basophil% 0.3 % (0-1); Eosinophil# 0.02 X10^3/uL; Eosinophils% 0.3 % (0-5); Hematocrit 27.7 % (37-47); Hemoglobin 8.3 g/dL (12.0-15.0); Lymphocyte # 1.37 X10^3/ul (0.83-4.51); Lymphocyte % 19.3 % (19-41); Mean Corpuscular Hgb 30.6 pg (27.0-32.0); Mean Corpuscular Volume 102.2 fL (81-99); Mean Platelet Vol. 10.3 fl (6.2-12.0); Monocyte# 0.93 X10^3/uL; Monocyte% 13.1 % (0-10); NRBC Flagged by Analyzer 0 % (0-5); Neutrophil # 4.73 X10^3/uL (2.7-7.7); Neutrophil % 66.7 % (47-70); Platelet Count 188 K/mm3 (150-450); RBC Distribution Width CV 13.8 % (11.6-14.6); RBC Distribution Width SD 51.8 fl (35.1-43.9); Red Blood Count 2.71 M/mm3 (4.2-5.4); White Blood Count 7.1 K/mm3 (4.4-11.0)
--- NOTE | 2022-07-27 07:00 | US_ITS ---
STUDY: RENAL ULTRASOUND - COMPLETE REASON FOR EXAM: Female, 76 years old. luke on ckd stage IV TECHNIQUE: Ultrasound evaluation of the kidneys was performed with real-time and static pruitt-scale imaging. COMPARISON: None. FINDINGS: RIGHT KIDNEY: Normal location of the right kidney, which is normal in size. The right kidney measures 9.1 cm x 3.9 cm x 4.1 cm. There is a normal cortex of the right kidney. The renal cortex measures 1 cm. There is a 7 mm x 8 mm x 9 mm cyst. There are no right renal calculi. There is no right hydronephrosis. DISTAL RIGHT URETER: There is non-visualization of the distal right ureter. There is no demonstrated right ureterovesical junction calculus. There is no demonstrated right ureteral jet. LEFT KIDNEY: Normal location of the left kidney, which is normal in size. The left kidney measures 9.2 cm x 4 cm x 4.5 cm. There is a normal cortex of the left kidney. The renal cortex measures 1 cm. There is a 1.8 cm x 1.6 cm x 1.3 cm cyst. There are no left renal calculi. There is no left hydronephrosis. DISTAL LEFT URETER: There is non-visualization of the distal left ureter. There is no demonstrated left ureterovesical junction calculus. There is no demonstrated left ureteral jet. BLADDER: The bladder was empty at the time of the examination. US/Kidney and Bladder IMPRESSION: Small bilateral renal cysts more prominent on the left side. Electronically Signed: Bertram Brown MD at 11:00 EDT ,
[2022-07-27 07:06] LABS: ALB/GLOB Ratio 0.6 RATIO (0.9-2.4); AST(SGOT) 12 U/L (15-37); Alanine Aminotransfer ALT/SGPT 15 U/L (13-56); Albumin, Serum 2.4 g/dL (3.2-5.0); Alkaline Phosphatase 51 U/L (45-117); Anion Gap 6 (5-15); BUN 69 mg/dL (7-18); BUN/Creat Ratio 15.9 RATIO (10-20); Calcium,Total 8.5 mg/dL (8.5-10.1); Chloride 116 mmol/L (98-107); Creatinine, Serum 4.33 mg/dL (0.55-1.02); EST Glomerular Filtration Rate 11 mL/min (>60); Est Glom Filt Rate - Afr Amer 13 mL/min (>60); Estimated Creatinine Clearance 9.64 ml/min; Globulin 3.9 g/dL (2.2-4.2); Glucose 95 mg/dL (74-106); Magnesium 1.6 mg/dL (1.6-2.6); Potassium 4.5 mmol/L (3.5-5.1); Protein, Total 6.3 g/dL (6.4-8.2); Sodium Level 141 mmol/L (136-145); Thyroid Stim Hormone (TSH) 2.37 uIU/mL (0.358-3.74)
[2022-07-27 09:04] VITALS: BP 121/44; PULSE 70; RESP 18; TEMP 36.8; O2SAT 97
[2022-07-27] MEDS: Clopidogrel Bisulfate 75 MG Tablet PO (09:07)
[2022-07-27] MEDS: Pantoprazole Sodium 40 MG Tablet PO (09:08)
[2022-07-27] MEDS: Insulin Glargine-YFGN 100 UNIT/ML Pen SC (09:08)
[2022-07-27] MEDS: Carvedilol 3.125 MG TABLET PO ×2 (09:08→20:33)
[2022-07-27] MEDS: Ferrous Sulfate 325 MG Tablet PO ×2 (09:08→17:28)
--- NOTE | 2022-07-27 11:25 | CASEMGMT ---
RN?CM?HYDROPONICS GROWER?CM?to room to meet with patient for initial transition planning/care coordination?assessment.?RN?CM?introduced self and role at [facility].? Pt voices understanding and consents to?assessment?at this time.? Pt resting in bed in no distress at this time.? @ bedside. Pt is A/O at this time and answers all questions appropriately.?? Care providers, pharmacy, and demographics verified/updated at this time. PCP: Dr Gambino Specialists:Dr Romero-cardiology @ [facility]. Dr Alva-nephrology @ [facility] ([place] or [place]), Dr Edgar-hematology Preferred Pharmacy: [facility], [place] Insurance: [facility] [place], [employer] Prescription Benefit:?yes Living Will/HPOA:?Has both LW and HCPOA, who is her , Leonidas. Both are on file @ [facility]. LNOK: , Leonidas. 2 dtrs: Masha and Aletha. Another dtr lives in [place]. Living Arrangements: Lives w/her in 2-story home w/2 steps to enter. Full bath on main floor. Bedroom on 2nd floor. No bathroom on 2nd floor. Pt states she often sleeps on the couch on the main floor. Indep prior to hospitalization. Transportation:? DME:States has the following DME:?shower chair, grab bars, rollator, Charles continuous glucose monitoring system, and glucometer. Pt denies needing script for a walker, stating her daughter has a walker available that she is bringing to her to use. ?Pt states no need for further DME at this time.? HHC/SNF: No hx of either. Pt interested in HHC. Pt and state they want [facility] and decline wanting a list of other options. Call to Cherri @ [facility]. They are able to accept pt for SN and PT. Pt wishes to return home and states has no concerns with going home at time of discharge.?CM?to follow for any further discharge planning/needs.? Pt and voice no further concerns/needs at this time.? Advised them to ask for?CM?if any further questions/concerns/needs arise.? They voice understanding. PLAN:??Home w/[facility]: SN and PT. Moreno BSN?RN?CM
[2022-07-27] MEDS: Insulin Lispro 100 UNIT/ML INSULN.PEN SC ×2 (11:49→20:34)
[2022-07-27 12:20] LABS: Bedside Glucose 186 mg/dL (74-106)
[2022-07-27 14:42] VITALS: BP 144/65; PULSE 69; RESP 18; TEMP 36.6; O2SAT 97
--- NOTE | 2022-07-27 16:29 | PN_ITS ---
Subjective Subjective Patient seen and examined. She has no active complaints today and had an uneventful night. Pain is improving. She denies any nausea or vomiting, fever or chills. Review of symptoms otherwise negative. Objective Data Objective Data Vital Signs: Vital Signs Temp Pulse Resp BP Pulse Ox O2 Del Method 97.8 F 69 18 144/65 H 97 Room Air 07/27/22 14:42 07/27/22 14:42 07/27/22 14:42 07/27/22 14:42 07/27/22 14:42 07/27/22 14:42 Oxygen Delivery Method Room Air Weight: 147 lb 4.301 oz Body Mass Index (BMI) 24.5 Intake & Output: Intake and Output for Last 24 Hours 07/25/22 07/26/22 07/27/22 23:59 23:59 23:59 Intake Total 1747.5 / 1747.5 Output Total 400 / 400 Balance 1347.5 / 1347.5 Lab / Micro Data Result Diagrams: 07/27/22 05:40 07/27/22 05:40 Labs: Laboratory Results - last 24 hr 07/26/22 15:40: Iron 19 L, TIBC 234 L, Ferritin 141 07/26/22 17:55: POC Glucose 128 H 07/26/22 21:53: POC Glucose 219 H 07/27/22 05:10: Ur Random Sodium 43, Urine Creatinine 89.80, Urine Potassium 46.0, Urine Chloride 47, Urine Urea Nitrogen 522 07/27/22 05:40: WBC 7.1, RBC 2.71 L, Hgb 8.3 L, Hct 27.7 L, MCV 102.2 H, MCH 30.6, MCHC 30.0 L, RDW Std Deviation 51.8 H, RDW Coeff of Bre 13.8, Plt Count 188, MPV 10.3, Immature Gran % (Auto) 0.300, Neut % (Auto) 66.7, Lymph % (Auto) 19.3, [place] % (Auto) 13.1 H, Eos % (Auto) 0.3, Baso % (Auto) 0.3, Absolute Neuts (auto) 4.7, Absolute Lymphs (auto) 1.37, Nucleated RBC % 0 07/27/22 05:40: Sodium 141, Potassium 4.5, Chloride 116 H, Carbon Dioxide 19.0 L , Anion Gap 6, BUN 69 H, Creatinine 4.33 H, Estim Creat Clear Calc 9.64, Est GFR (MDRD) Af Amer 13 L, Est GFR (MDRD) Non-Af 11 L, BUN/Creatinine Ratio 15.9, Glucose 95, Calcium 8.5, Magnesium 1.6, Total Bilirubin 0.90, AST 12 L, ALT 15, Alkaline Phosphatase 51, Total Protein 6.3 L, Albumin 2.4 L, Globulin 3.9, Albumin/Globulin Ratio 0.6 L, TSH 2.37 07/27/22 05:50: POC Glucose 104 07/27/22 11:48: POC Glucose 186 H Micro: Microbiology 07/26/22 19:10 Mucosa - Nasopharyngeal Respiratory Panel (PCR) - Final 07/26/22 18:15 Nasal Secretion SARS-CoV-2 & FLU Antigen (Rapid) - Final Radiography Diagnostic Testing: Radiology Impression Chest X-Ray 07/26/22 16:20 IMPRESSION: No acute findings in the chest. Electronically Signed: Munir Tate MD at 16:57 EDT , Renal Ultrasound 07/27/22 07:00 IMPRESSION: Small bilateral renal cysts more prominent on the left side. Electronically Signed: Bertram Brown MD at 11:00 EDT , Physical Exam Const alert, oriented x3 and no apparent distress General Appearance: cooperative HEENT normocephalic and head/scalp atraumatic Eyes PERRL and EOMs intact bilaterally Neck supple Lymph Lymphatic: no lymphadenopathy noted and no lymphedema noted Resp normal respiratory effort, normal air movement and clear to auscultation bilaterally Cardio regular rhythm, S1 normal heart sound, S2 normal heart sound and no murmurs GI normal to inspection, nondistended, normoactive bowel sounds, soft to palpation and non-tender Extremity normal capillary refill, no clubbing, cyanosis or edema and no calf tenderness Skin General Skin Exam: no breakdown Neuro CN's II-XII intact bilaterally, no focal motor deficits and no sensory deficits noted Psych thought process normal and cooperative Appearance: appropriate Assessment & Plan Assessment/Plan (1) Pre-syncope: (2) Pre-syncope: PLAN: Plan #Najma on CKD IV * continue gentle hydration * trend Cr * Cr is down to 4.33 from 4.39 * continue gentle hydration with IVF * baseline Cr is ~ 2.45 * Renal ultrasound showed small bilateral cyst more prominent on the left side. #Right ankle pain * xray showed soft tissue swelling, but no fracture. * Pt.OT on board * pain meds * #Presyncope * likely due to diarrhea and over diuresis as she was also takiing her lasix and BP meds * orthostatics negative * troponins not elevated * lasix on hold * #Type 2 diabets mellitus: on lantus. ISS. Accuchecks ACHS #CAD: on aspirin, statin and plavix #HFrEF * s/p defibrillator. ON beta radha. Imdur and hydralazine on hold. Her recent 2D echo in 2019 showed EF of 65% and stage I diastolic function. * DVT prophylaxis: heparin Charges/Coding Visit Charges Inpatient E&M: 07174 Subs Hosp L2
[2022-07-27 17:06] LABS: Bedside Glucose 100 mg/dL (74-106)
[2022-07-27 20:24] VITALS: BP 149/69; PULSE 69; RESP 17; TEMP 37.7; O2SAT 94
[2022-07-27] MEDS: 0.9% Normal Saline 1,000 ML 125 ML IV (20:32)
[2022-07-27] MEDS: Atorvastatin Calcium 80 MG Tablet PO (20:34)
[2022-07-27 20:56] LABS: Bedside Glucose 172 mg/dL (74-106)
[2022-07-27 23:31] LABS: Uric Acid 9.3 mg/dL (2.6-6.0)
[2022-07-28] VITALS (7 sets, daily range): BP systolic 137–146; BP diastolic 60–73; PULSE 62–82; RESP 16–18; TEMP 36.6–37.4; O2SAT 94–97; BMI 25.2
[2022-07-28] MEDS: 0.9% Normal Saline 1,000 ML 125 ML IV ×3 (02:16→18:17)
[2022-07-28] MEDS: Acetaminophen 325 MG Tablet 650 MG PO ×2 (03:13→20:57)
[2022-07-28 06:51] LABS: Absolute Lymphocyte Count 1.42 X10^3/uL (0.83-4.51); Absolute Neutrophil Count 3.2 X10^3/uL (2.0-7.7); Basophil# 0.02 X10^3/uL; Basophil% 0.4 % (0-1); Eosinophil# 0.05 X10^3/uL; Eosinophils% 0.9 % (0-5); Hematocrit 25.6 % (37-47); Hemoglobin 7.8 g/dL (12.0-15.0); Lymphocyte # 1.42 X10^3/ul (0.83-4.51); Lymphocyte % 26.1 % (19-41); Mean Corp Hgb Conc 30.5 g/dL (32-36); Mean Corpuscular Hgb 30.7 pg (27.0-32.0); Mean Corpuscular Volume 100.8 fL (81-99); Mean Platelet Vol. 9.9 fl (6.2-12.0); Monocyte# 0.71 X10^3/uL; NRBC Flagged by Analyzer 0 % (0-5); Neutrophil # 3.24 X10^3/uL (2.7-7.7); Neutrophil % 59.4 % (47-70); Platelet Count 189 K/mm3 (150-450); RBC Distribution Width CV 13.6 % (11.6-14.6); RBC Distribution Width SD 50.8 fl (35.1-43.9); Red Blood Count 2.54 M/mm3 (4.2-5.4); White Blood Count 5.5 K/mm3 (4.4-11.0)
[2022-07-28 07:01] LABS: Bedside Glucose 99 mg/dL (74-106)
[2022-07-28 07:20] LABS: Anion Gap 6 (5-15); BUN 68 mg/dL (7-18); BUN/Creat Ratio 17.5 RATIO (10-20); Calcium,Total 8.6 mg/dL (8.5-10.1); Chloride 118 mmol/L (98-107); Creatinine, Serum 3.88 mg/dL (0.55-1.02); EST Glomerular Filtration Rate 12 mL/min (>60); Est Glom Filt Rate - Afr Amer 14 mL/min (>60); Estimated Creatinine Clearance 10.75 ml/min; Glucose 108 mg/dL (74-106); Potassium 4.4 mmol/L (3.5-5.1); Sodium Level 142 mmol/L (136-145)
[2022-07-28] MEDS: Ferrous Sulfate 325 MG Tablet PO ×2 (08:09→17:12)
[2022-07-28] MEDS: Pantoprazole Sodium 40 MG Tablet PO (09:32)
[2022-07-28] MEDS: Clopidogrel Bisulfate 75 MG Tablet PO (09:32)
[2022-07-28] MEDS: Insulin Glargine-YFGN 100 UNIT/ML Pen SC (09:32)
[2022-07-28] MEDS: Carvedilol 3.125 MG TABLET PO ×2 (09:32→20:56)
[2022-07-28] MEDS: Insulin Lispro 100 UNIT/ML INSULN.PEN SC ×2 (11:18→20:56)
[2022-07-28 11:45] LABS: Bedside Glucose 199 mg/dL (74-106)
--- NOTE | 2022-07-28 11:48 | PN_ITS ---
Subjective Subjective Patient seen and examined. She had no complaints today. Her ankle pain is much better. Review of systems is otherwise negative. Cr has trended down to 3.88 today. Objective Data Objective Data Vital Signs: Vital Signs Temp Pulse Resp BP Pulse Ox O2 Del Method 97.8 F 62 16 137/60 H 94 Room Air 07/28/22 08:06 07/28/22 08:06 07/28/22 09:39 07/28/22 08:06 07/28/22 09:18 07/28/22 09:39 Oxygen Delivery Method Room Air Weight: 151 lb 3.794 oz Body Mass Index (BMI) 25.2 Intake & Output: Intake and Output for Last 24 Hours 07/26/22 07/27/22 07/28/22 23:59 23:59 23:59 Intake Total 2447.5 / 2747.5 2442.92 / 2442.92 Output Total 400 / 400 Balance 2047.5 / 2347.5 2442.92 / 2442.92 Lab / Micro Data Result Diagrams: 07/28/22 06:38 07/28/22 06:38 Labs: Laboratory Results - last 24 hr 07/27/22 11:48: POC Glucose 186 H 07/27/22 16:47: POC Glucose 100 07/27/22 20:31: POC Glucose 172 H 07/27/22 : Uric Acid 9.3 H 07/28/22 06:22: POC Glucose 99 07/28/22 06:38: WBC 5.5, RBC 2.54 L, Hgb 7.8 L, Hct 25.6 L, MCV 100.8 H, MCH 30.7, MCHC 30.5 L, RDW Std Deviation 50.8 H, RDW Coeff of Bre 13.6, Plt Count 189, MPV 9.9, Immature Gran % (Auto) 0.200, Neut % (Auto) 59.4, Lymph % (Auto) 26.1, [place] % (Auto) 13.0 H, Eos % (Auto) 0.9, Baso % (Auto) 0.4, Absolute Neuts (auto) 3.2, Absolute Lymphs (auto) 1.42, Nucleated RBC % 0 07/28/22 06:38: Sodium 142, Potassium 4.4, Chloride 118 H, Carbon Dioxide 18.0 L , Anion Gap 6, BUN 68 H, Creatinine 3.88 H, Estim Creat Clear Calc 10.75, Est GFR (MDRD) Af Amer 14 L, Est GFR (MDRD) Non-Af 12 L, BUN/Creatinine Ratio 17.5, Glucose 108 H, Calcium 8.6 07/28/22 11:15: POC Glucose 199 H Micro: Microbiology 07/26/22 19:10 Mucosa - Nasopharyngeal Respiratory Panel (PCR) - Final 07/26/22 18:15 Nasal Secretion SARS-CoV-2 & FLU Antigen (Rapid) - Final Physical Exam Const alert, oriented x3 and no apparent distress General Appearance: cooperative HEENT normocephalic, head/scalp atraumatic and moist oral mucous membranes Eyes PERRL and EOMs intact bilaterally Neck supple Lymph Lymphatic: no lymphadenopathy noted and no lymphedema noted Resp normal respiratory effort, normal air movement and clear to auscultation bilaterally Cardio regular rate, regular rhythm, S1 normal heart sound, S2 normal heart sound and no murmurs GI normal to inspection, nondistended, normoactive bowel sounds, soft to palpation and non-tender Extremity normal capillary refill, no clubbing, cyanosis or edema and no calf tenderness Skin Skin Narrative: ankle tenderness has fully resolved. General Skin Exam: no breakdown Neuro CN's II-XII intact bilaterally, no focal motor deficits and no sensory deficits noted Psych thought process normal and cooperative Appearance: appropriate Assessment & Plan Assessment/Plan (1) Pre-syncope: PLAN: Plan #Najma on CKD IV * continue gentle hydration * trend Cr * Cr is down to 3.88 today * continue gentle hydration with IVF * baseline Cr is ~ 2.45 * Renal ultrasound showed small bilateral cyst more prominent on the left side. * #Right ankle pain * xray showed soft tissue swelling, but no fracture. * Pt.OT on board * pain meds * uric acid was elevated at 9.3. This could be contributing to the right ankl pain as a result of gout * since pain has improved, will monitor for now. Cannot giev allopurinol due to kidney impariment * #Presyncope * likely due to diarrhea and over diuresis as she was also takiing her lasix and BP meds * orthostatics negative * troponins not elevated * lasix on hold * resolved. * #Type 2 diabetes mellitus: on lantus. ISS. Accuchecks ACHS #CAD: on aspirin, statin and plavix #HFrEF * s/p defibrillator. ON beta radha. Imdur and hydralazine on hold. Her recent 2D echo in 2019 showed EF of 65% and stage I diastolic function. * DVT prophylaxis: heparin Charges/Coding Visit Charges Inpatient E&M: 27696 Subs Hosp L2
[2022-07-28] MEDS: Heparin Injection (Vial) 5,000 UNIT/ML VIAL 5000 UNIT SC ×2 (15:03→20:56)
[2022-07-28 17:35] LABS: Bedside Glucose 117 mg/dL (74-106)
--- NOTE | 2022-07-28 19:51 | PN.HOSP_ITS ---
Hospitalist Note Paged secondary to patient having IV fluids ordered among other things and patient is currently refusing to have an IV placed. Evidently her previous IV has blown and Wednesday dayshift nurses tried to get an IV and however was unsuccessful. attendance secretary went in to try to get an IV placed however she refused as she stated she was tired of being poked. Sdv Pilot/Navigator/Dds Operator to talk to the patient to see if they get her to agree to IV placement upcoming.
[2022-07-28] MEDS: MELATONIN 3 MG TABLET PO (20:57)
[2022-07-28] MEDS: Atorvastatin Calcium 80 MG Tablet PO (20:57)
[2022-07-28 21:20] LABS: Bedside Glucose 174 mg/dL (74-106)
[2022-07-29 03:00] VITALS: BP 136/70; PULSE 57; RESP 16; TEMP 36.7; O2SAT 97
[2022-07-29] MEDS: 0.9% Normal Saline 1,000 ML 125 ML IV (03:33)
[2022-07-29 05:52] VITALS: BMI 28.4
[2022-07-29 06:39] LABS: Absolute Lymphocyte Count 1.46 X10^3/uL (0.83-4.51); Basophil# 0.03 X10^3/uL; Basophil% 0.6 % (0-1); Hematocrit 27.8 % (37-47); Hemoglobin 8.3 g/dL (12.0-15.0); Lymphocyte # 1.46 X10^3/ul (0.83-4.51); Lymphocyte % 28.5 % (19-41); Mean Corp Hgb Conc 29.9 g/dL (32-36); Mean Corpuscular Hgb 30.4 pg (27.0-32.0); Mean Corpuscular Volume 101.8 fL (81-99); Mean Platelet Vol. 10.1 fl (6.2-12.0); Monocyte# 0.57 X10^3/uL; Monocyte% 11.1 % (0-10); NRBC Flagged by Analyzer 0 % (0-5); Neutrophil # 2.95 X10^3/uL (2.7-7.7); Neutrophil % 57.6 % (47-70); Platelet Count 210 K/mm3 (150-450); RBC Distribution Width CV 13.5 % (11.6-14.6); RBC Distribution Width SD 50.5 fl (35.1-43.9); Red Blood Count 2.73 M/mm3 (4.2-5.4); White Blood Count 5.1 K/mm3 (4.4-11.0)
[2022-07-29 06:45] LABS: Bedside Glucose 94 mg/dL (74-106)
[2022-07-29 07:03] LABS: Anion Gap 9 (5-15); BUN 66 mg/dL (7-18); BUN/Creat Ratio 19.1 RATIO (10-20); Calcium,Total 8.4 mg/dL (8.5-10.1); Chloride 117 mmol/L (98-107); Creatinine, Serum 3.46 mg/dL (0.55-1.02); EST Glomerular Filtration Rate 14 mL/min (>60); Est Glom Filt Rate - Afr Amer 16 mL/min (>60); Estimated Creatinine Clearance 12.06 ml/min; Glucose 100 mg/dL (74-106); Potassium 4.8 mmol/L (3.5-5.1); Sodium Level 142 mmol/L (136-145)
[2022-07-29 07:25] VITALS: O2SAT 98
[2022-07-29 07:52] VITALS: BP 146/74; PULSE 66; RESP 16; TEMP 36.8; O2SAT 98
[2022-07-29] MEDS: Ferrous Sulfate 325 MG Tablet PO (10:16)
[2022-07-29] MEDS: Carvedilol 3.125 MG TABLET PO (10:16)
[2022-07-29] MEDS: Pantoprazole Sodium 40 MG Tablet PO (10:16)
[2022-07-29] MEDS: Clopidogrel Bisulfate 75 MG Tablet PO (10:16)
[2022-07-29] MEDS: Insulin Glargine-YFGN 100 UNIT/ML Pen SC (10:17)
[2022-07-29] MEDS: Sodium Bicarbonate 650 MG Tablet PO (10:19)
[2022-07-29] MEDS: Insulin Lispro 100 UNIT/ML INSULN.PEN SC (12:05)
--- NOTE | 2022-07-29 12:05 | CASEMGMT ---
Updated Britt at [facility] that pt will dc today.
[2022-07-29 12:25] LABS: Bedside Glucose 158 mg/dL (74-106)
--- NOTE | 2022-07-29 17:41 | DS.PCM_ITS ---
Providers Date of Admission: 07/26/22 Date of Discharge: 07/30/22 Primary Care Physician: Dr. 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 * #Right ankle pain * xray showed soft tissue swelling, but no fracture. * Pt.OT on board * pain meds * uric acid was elevated at 9.3. This could be contributing to the right ankl pain as a result of gout * since pain has improved, will monitor for now. Cannot giev allopurinol due to kidney impariment * #Presyncope * likely due to diarrhea and over diuresis as she was also takiing her lasix and BP meds * orthostatics negative * troponins not elevated * lasix on hold * resolved. * #Type 2 diabetes mellitus: on lantus. ISS. Accuchecks ACHS #CAD: on aspirin, statin and plavix #HFrEF * s/p defibrillator. ON beta radha. Imdur and hydralazine on hold. Her recent 2D echo in 2019 showed EF of 65% and stage I diastolic function. * DVT prophylaxis: heparin Medications at Discharge Home Medications insulin glargine 100 unit/mL (3 mL) subcutaneous pen (Lantus Solostar U-100 Insulin) 5 unit SQ DAILY diabetes 06/07/18 insulin lispro 100 unit/mL subcutaneous pen (Humalog KwikPen (U-100) Insulin) 3 unit SQ DAILY diabetes 06/07/18 atorvastatin 80 mg tablet 80 mg PO DAILY cholesterol 06/06/19 carvedilol 6.25 mg tablet 6.25 mg PO BID blood pressure 06/06/19 clopidogrel 75 mg tablet 75 mg PO DAILY anti platelet 11/07/19 ferrous sulfate 325 mg (65 mg iron) tablet 325 mg PO BIDCM supplement 11/07/19 furosemide 20 mg tablet 20 mg PO DAILY diuretic 11/07/19 hydralazine 50 mg tablet 25 mg PO BID diuretic 11/07/19 isosorbide mononitrate 30 mg tablet,extended release 24 hr 30 mg PO DAILY heart 11/07/19 losartan 25 mg tablet 50 mg PO DAILY blood pressure 11/07/19 pyridoxine (vitamin B6) 100 mg tablet 100 mg PO DAILY vitamin 11/07/19 pantoprazole 40 mg tablet,delayed release 40 mg PO DAILY 07/26/22 allopurinol 100 mg tablet 100 mg PO DAILY #30 tabs 07/29/22 sodium bicarbonate 650 mg tablet 650 mg PO BID #30 tabs 07/29/22 Hospital Course Operations None Procedures None Summary of Care Provided Minutes Spent on Discharge: 55 Hospital Course: Patient is a 76-year-old female with past medical history as outlined was admitted through the ED on 07/26/2022 with a complaint of right ankle pain. She had had some lightheadedness a few days prior to admission when she stood up to walk and fell and landed on her right shoulder and ankle. She was unable to weight-bear on her right ankle. She came into the ED and x-rays showed no evidence of fracture. Creatinine however done was 4.39. She had been taking her diuretics. She was medically managed for KEIKO on CKD stage IV. She was hydrated gently with IV fluids. PT OT was consulted and worked with patient. Her uric acid was elevated, with concerns for gout. Pain however subsequently resolved. Her creatinine trended down and was down to 3.4 at time of discharge. It was thought that this was likely due to a worsening of her baseline creatinine and let her CKD had likely progressed. She says she followed up with data processing systems project planner on outpatient basis. She was therefore counseled to follow-up with her data processing systems project planner on outpatient basis and was discharged home on 07/29/2022. She is to follow-up with her primary care doctor as well. She was given a prescription for p.o. allopurinol to help prevent uric acid elevation. Patient seen and examined prior to discharge. She had no active complaints and had an uneventful night. Review of systems otherwise negative. Labs and vitals reviewed. Home medication reviewed and reconciled. Physical Exam Const alert, oriented x3 and no apparent distress General Appearance: cooperative, comfortable and well kempt HEENT normocephalic, head/scalp atraumatic, hearing grossly normal bilaterally and moist oral mucous membranes Mouth: oral and palatal mucosa normal Eyes PERRL and EOMs intact bilaterally Neck no lymphadenopathy and supple Lymph Lymphatic: no lymphadenopathy noted and no lymphedema noted Resp normal respiratory effort, normal air movement and clear to auscultation bilaterally Cardio regular rate, regular rhythm, S1 normal heart sound, S2 normal heart sound and no murmurs GI normal to inspection, nondistended, normoactive bowel sounds, soft to palpation and non-tender Extremity normal capillary refill, no clubbing, cyanosis or edema and no calf tenderness Skin Skin Narrative: ankle tenderness has fully resolved. General Skin Exam: no breakdown Neuro oriented x3, CN's II-XII intact bilaterally, moves all extremities, no focal motor deficits and no sensory deficits noted Sensorium / Orientation: awake Psych thought process normal and cooperative Appearance: appropriate Weight / BMI Weight Weight: 170 lb 10.205 oz Body Mass Index (BMI) 28.4 ABG / Lab / Microbiology Data Result Diagrams: 07/29/22 06:20 07/29/22 06:20 Laboratory: Laboratory Results - last 24 hr 07/28/22 20:55: POC Glucose 174 H 07/29/22 06:20: WBC 5.1, RBC 2.73 L, Hgb 8.3 L, Hct 27.8 L, MCV 101.8 H, MCH 30.4, MCHC 29.9 L, RDW Std Deviation 50.5 H, RDW Coeff of Bre 13.5, Plt Count 210, MPV 10.1, Immature Gran % (Auto) 0.200, Neut % (Auto) 57.6, Lymph % (Auto) 28.5, [place] % (Auto) 11.1 H, Eos % (Auto) 2.0, Baso % (Auto) 0.6, Absolute Neuts (auto) 3.0, Absolute Lymphs (auto) 1.46, Nucleated RBC % 0 07/29/22 06:20: Sodium 142, Potassium 4.8, Chloride 117 H, Carbon Dioxide 16.0 L , Anion Gap 9, BUN 66 H, Creatinine 3.46 H, Estim Creat Clear Calc 12.06, Est GF R (MDRD) Af Amer 16 L, Est GFR (MDRD) Non-Af 14 L, BUN/Creatinine Ratio 19.1, Glucose 100, Calcium 8.4 L 07/29/22 06:25: POC Glucose 94 07/29/22 12:04: POC Glucose 158 H Microbiology: Microbiology 07/26/22 19:10 Mucosa - Nasopharyngeal Respiratory Panel (PCR) - Final 07/26/22 18:15 Nasal Secretion SARS-CoV-2 & FLU Antigen (Rapid) - Final D/C Instructions Discharge Diet: Low fat / Low cholesterol Discharge Activity: Return to Normal Activity Weight Bearing Status: Weight bearing as tolerated Call your doctor if you observe: Fever of 101 or Higher, Shortness of breath, Dizziness, Swelling in the ankles, Chest pain and Increased palpitations (irregular heartbeat) Meaningful Use Info Meaningful Use Diagnoses (Choose all that apply): None applicable Discharge Plan Admission Admit Date/Time: 07/26/22 17:00 Primary Reason for Your Visit: KEIKO on CKD Attending Provider: Brittney Benson Primary Care Provider: Petros Gambino Consulting Providers: Brunilda Bell Instructions Additional Instructions / Restrictions: follow up with your data processing systems project planner on outpatient basis in 1-2 weeks Discharge Orders/Prescriptions Prescriptions: New sodium bicarbonate 650 mg Tablet 650 mg PO BID Qty: 30 0RF allopurinol 100 mg tablet 100 mg PO DAILY Qty: 30 1RF Continued insulin lispro [Humalog KwikPen Insulin] 100 UNIT/ML insulin pen 3 unit SQ DAILY Rx Instructions: pt only takes with dinner insulin glargine [Lantus Solostar U-100 Insulin] 100 UNITS/ML insulin pen 5 unit SQ DAILY atorvastatin 80 MG tablet 80 mg PO DAILY carvedilol 6.25 MG tablet 6.25 mg PO BID furosemide 20 MG tablet 20 mg PO DAILY pyridoxine (vitamin B6) 100 MG tablet 100 mg PO DAILY isosorbide mononitrate 30 MG tablet extended release 24 hr 30 mg PO DAILY clopidogrel 75 MG tablet 75 mg PO DAILY ferrous sulfate 325 MG tablet 325 mg PO BIDCM losartan 25 MG tablet 50 mg PO DAILY hydralazine 50 MG tablet 25 mg PO BID pantoprazole 40 mg tablet,delayed release (DR/EC) 40 mg PO DAILY Referrals / Follow Up: Petros Gambino MD [Primary Care Provider] - 08/11/22 2:20 pm Disposition Disposition (needs filled in before D/C Order can be placed): Home Health Service Charges/Coding Visit Charges Inpatient E&M: 78084 Disch Hosp >30min
== END 2022-07-29 13:10 | disposition home health service (06) | DRG 292 ==
LOC: ED 16:31 → MS3 17:26
PROVIDERS: Admitting Provider Internal Medicine; Emergency Provider Student in an Organized Health Care Education/Training Program; PCP Family Medicine; Visit Provider Student in an Organized Health Care Education/Training Program
DX: I13.0 Hypertensive heart and chronic kidney disease with heart failure and stage 1 through stage 4 chronic kidney disease, or unspecified chronic kidney disease (principal); I50.22 Chronic systolic (congestive) heart failure; N18.4 Chronic kidney disease, stage 4 (severe); D63.1 Anemia in chronic kidney disease; E11.22 Type 2 diabetes mellitus with diabetic chronic kidney disease; Z79.4 Long term (current) use of insulin; M10.9 Gout, unspecified; I25.10 Atherosclerotic heart disease of native coronary artery without angina pectoris; M25.571 Pain in right ankle and joints of right foot; X58.XXXA Exposure to other specified factors, initial encounter; R55 Syncope and collapse; Z95.810 Presence of automatic (implantable) cardiac defibrillator; Z79.02 Long term (current) use of antithrombotics/antiplatelets; Z79.82 Long term (current) use of aspirin; Z79.899 Other long term (current) drug therapy; Z86.73 Personal history of transient ischemic attack (TIA), and cerebral infarction without residual deficits
CPT/HCPCS: 36415; 71045; 73610; 73630; 76770; 80048; 80053; 82436; 82570; 82728; 82962; 83540; 83550; 83735; 84133; 84300; 84443; 84484; 84540; 84550; 85025; 87428; 87633; 93005; 97162; 97530; 99285; J7030; A4216

== ENCOUNTER 2022-08-13 10:17 | Emergency (ER) | payer MEDICARE, OTHER, SELFPAY ==
[2022-08-13 10:18] VITALS: BP 171/71; PULSE 76; RESP 18; TEMP 36.6; O2SAT 96; BMI 25.9
--- NOTE | 2022-08-13 11:14 | EDS_ITS ---
HPI HPI - GI History of Present Illness Chief Complaint: GI Bleed Narrative Narrative: 76-year-old female past medical history of hypertension, coronary artery disease, on Plavix presents with bright red blood per rectum that began at 3 AM, approximately 8 hours ago. She states that she felt she had to have a bowel movement but had more bright red blood per rectum. It happened again at 8 when she passed a small amount of stool but continues to have bright red blood per rectum. She is having a mild amount of left lower quadrant abdominal pain and cramping. She denies any nausea or vomiting, no hematemesis, no other bleeding diathesis. No recent fevers or chills. She may feel slightly lightheaded. No chest pain or shortness of breath. [facility] Medical History Anemia CAD (coronary artery disease) CAD (coronary artery disease) CKD (chronic kidney disease) stage 3, GFR 30-59 ml/min CVA (cerebral vascular accident) CVA (cerebral vascular accident) Fall HTN (hypertension) Hypertension Type 2 diabetes mellitus Type II diabetes mellitus Home Medications insulin glargine 100 unit/mL (3 mL) subcutaneous pen (Lantus Solostar U-100 Insulin) 5 unit SQ DAILY diabetes 06/07/18 [History Last Taken 11/07/19 07:30] insulin lispro 100 unit/mL subcutaneous pen (Humalog KwikPen (U-100) Insulin) 3 unit SQ DAILY diabetes 06/07/18 [History Last Taken 11/07/19 07:30] atorvastatin 80 mg tablet 80 mg PO DAILY cholesterol 06/06/19 [History Last Taken 11/06/19 23:00] carvedilol 6.25 mg tablet 6.25 mg PO BID blood pressure 06/06/19 [History Last Taken 11/07/19 07:30] clopidogrel 75 mg tablet 75 mg PO DAILY anti platelet 11/07/19 [History Last Taken 11/07/19 07:30] ferrous sulfate 325 mg (65 mg iron) tablet 325 mg PO BIDCM supplement 11/07/19 [History Last Taken 11/07/19 07:30] furosemide 20 mg tablet 20 mg PO DAILY diuretic 11/07/19 [History Last Taken 11/07/19 07:30] hydralazine 50 mg tablet 25 mg PO BID diuretic 11/07/19 [History Last Taken 11/07/19 07:30] isosorbide mononitrate 30 mg tablet,extended release 24 hr 30 mg PO DAILY heart 11/07/19 [History Last Taken 11/07/19 07:30] losartan 25 mg tablet 50 mg PO DAILY blood pressure 11/07/19 [History Last Taken 11/07/19 07:30] pyridoxine (vitamin B6) 100 mg tablet 100 mg PO DAILY vitamin 11/07/19 [History Last Taken 11/07/19 07:30] pantoprazole 40 mg tablet,delayed release 40 mg PO DAILY 07/26/22 [History Last Taken Unknown] allopurinol 100 mg tablet 100 mg PO DAILY #30 tabs 07/29/22 [Rx Last Taken Unknown] sodium bicarbonate 650 mg tablet 650 mg PO BID #30 tabs 07/29/22 [Rx Last Taken Unknown] Allergy/AdvReac Type Severity Reaction Status Date / Time adhesive Allergy Mild Hives Verified 08/13/22 10:20 zinc Allergy Mild blisters Verified 08/13/22 10:20 Social History Smoking Status: Never smoker ROS ROS ED ROS Narrative Constitutional: No fever, no chills. HEENT: No sore throat. No neck pain. No loss of vision. No rhinorrhea. Cardiovascular: No chest pain. No palpitations. No pedal edema. Respiratory: No cough, no shortness of breath. Abdominal: Left lower quadrant abdominal pain. No nausea. No vomiting. Bright red blood per rectum. Genitourinary: No dysuria. No hematuria. Musculoskeletal: No myalgias. No arthralgias. Neurologic: No headaches. No dizziness. No lightheadedness. Skin: No rash. No change in color. Psychiatric: No depression. No anxiety. EXAM Physical Exam Narrative Exam Narrative: Afebrile. Vital signs noted. HEENT: Normocephalic. Atraumatic. PERRL, EOMI. Neck soft and supple. No point tenderness or step off. Cardiovascular: Regular rate and rhythm. No murmurs, rubs, or gallops appreciated. Respiratory: No tachypnea. Lungs clear to auscultation bilaterally. Gastrointestinal: Abdomen soft, mild tenderness left lower quadrant., with normoactive bowel sounds. No rebound or guarding. Neurological: Awake. Alert. Nonfocal, nonlateralizing. Skin: No rash. Normal color. No pallor. Musculoskeletal: No pedal edema. Full range of motion extremities. Const Vital Signs: 08/13/22 10:18 Temperature 97.9 F Temperature Source Temporal Pulse Rate 76 Respiratory Rate 18 Blood Pressure 171/71 H Blood Pressure Mean 104 Pulse Ox 96 Oxygen Delivery Method Room Air MDM MDM MDM Narrative Medical decision making narrative: In the differential diagnosis is diverticulitis versus AV malformation versus internal hemorrhoid. Given her left lower quadrant pain, I do feel CT imaging is indicated. I will obtain a CBC to rule out anemia, and a CMP to look for elevation of her BUN as compared to her creatinine. Chaperoned rectal examination will be performed to look for presence of bright red blood. I reviewed the patient's laboratory work and she has a normal white count of 6.5, hemoglobin is stable at 8.6, at her baseline with hematocrit 29.0. Platelet count normal at 255. Review of her CMP shows chloride elevated at 114 but normal sodium of 141, potassium 4.3, normal AST and ALT at 24 and 41 respectively. She has a BUN elevated at 51 with a creatinine of 3.46, but this is also at her baseline as she has chronic kidney disease, stage III. Urinalysis is negative for infection. CT of the abdomen and pelvis with IV contrast was obtained, and I reviewed the radiology report which states that while there is sigmoid diverticulosis, no evidence of diverticulitis. There is circumferential wall thickening of the rectum. During her chaperoned rectal examination, there was no gross blood with a minimal amount of tenderness but no fluctuance. At this point in time, I was able to discuss the patient with the nurse practitioner for gastroenterology who agrees that antibiotics should be deferred. They will follow-up closely with her for reevaluation of her rectal inflammation as seen on CT. I feel that she is stable for discharge. Patient is agreeable and would like to be discharged home with outpatient follow-up to gastroenterology. Return instructions to the emergency department were reviewed. Disposition is discharged home in stable condition. Patient and are agreeable to the plan. Lab Data Attestation: I reviewed the patient's lab results. Labs: Laboratory Results - last 24 hr 08/13/22 08/13/22 08/13/22 10:50 10:50 11:45 WBC 6.5 RBC 2.85 L Hgb 8.6 L Hct 29.0 L MCV 101.8 H MCH 30.2 MCHC 29.7 L RDW Std Deviation 53.5 H RDW Coeff of Bre 14.6 Plt Count 255 MPV 9.9 Immature Gran % (Auto) 0.300 Neut % (Auto) 70.2 H Lymph % (Auto) 19.4 [place] % (Auto) 8.4 Eos % (Auto) 1.2 Baso % (Auto) 0.5 Absolute Neuts (auto) 4.6 Absolute Lymphs (auto) 1.26 Nucleated RBC % 0 Sodium 141 Potassium 4.3 Chloride 114 H Carbon Dioxide 22.0 Anion Gap 5 BUN 51 H Creatinine 3.46 H Estim Creat Clear Calc 12.06 Est GFR (MDRD) Af Amer 16 L Est GFR (MDRD) Non-Af 14 L BUN/Creatinine Ratio 14.7 Glucose 190 H Calcium 8.9 Total Bilirubin 0.70 AST 24 ALT 41 Alkaline Phosphatase 116 Total Protein 6.6 Albumin 2.9 L Globulin 3.7 Albumin/Globulin Ratio 0.8 L Urine Color Straw Urine Clarity Clear Urine pH 6.5 Ur Specific [place] 1.010 Urine Protein 100 H Urine Glucose (UA) Normal Urine Ketones Negative Urine Occult Blood 25 H Urine Nitrite Negative Urine Bilirubin Negative Urine Urobilinogen Normal Ur Leukocyte Esterase 25 H Urine RBC 0 SEEN Urine WBC 0-5 SEEN Ur Squamous Epith Cells 0-5 SEEN Urine Bacteria RARE Urine Mucus RARE Radiography Diagnostic Testing: Clinical Impression(s) from Imaging Studies Abdomen/Pelvis CT 08/13/22 11:17 IMPRESSION: Status post cholecystectomy and hysterectomy. Stable hepatic and left renal cysts. Sigmoid diverticulosis. Circumferential wall thickening of the rectum with increased markings in the surrounding peritoneal fat and presacral fat. Inflammatory change should be ruled out. Electronically Signed: Bertram Brown MD at 12:29 EDT , Discharge Plan Triage Chief Complaint: GI Bleed ED Provider: Anthony Camejo Dx/Rx/DC Orders Clinical Impression: Rectal bleeding, Rectal inflammation Instructions: Understanding Rectal Bleeding, ED Lower GI Bleeding (Stable) Prescriptions: No Action insulin lispro [Humalog KwikPen Insulin] 100 UNIT/ML insulin pen 3 unit SQ DAILY Rx Instructions: pt only takes with dinner insulin glargine [Lantus Solostar U-100 Insulin] 100 UNITS/ML insulin pen 5 unit SQ DAILY atorvastatin 80 MG tablet 80 mg PO DAILY carvedilol 6.25 MG tablet 6.25 mg PO BID furosemide 20 MG tablet 20 mg PO DAILY pyridoxine (vitamin B6) 100 MG tablet 100 mg PO DAILY isosorbide mononitrate 30 MG tablet extended release 24 hr 30 mg PO DAILY clopidogrel 75 MG tablet 75 mg PO DAILY ferrous sulfate 325 MG tablet 325 mg PO BIDCM losartan 25 MG tablet 50 mg PO DAILY hydralazine 50 MG tablet 25 mg PO BID pantoprazole 40 mg tablet,delayed release (DR/EC) 40 mg PO DAILY sodium bicarbonate 650 mg Tablet 650 mg PO BID Qty: 30 0RF allopurinol 100 mg tablet 100 mg PO DAILY Qty: 30 1RF Primary Care Provider: Petros Gambino Referrals: Petros Gambino MD [Primary Care Provider] - Friend,DO Yan [Med Staff - Active Staff] - As soon as possible Disposition Disposition: Home, Self Care
--- NOTE | 2022-08-13 11:17 | CT_ITS ---
STUDY: CT ABDOMEN AND PELVIS WITH CONTRAST REASON FOR EXAM: Female, 76 years old. GI bleed. Bright red blood per rectum. RADIATION DOSAGE (If Supplied By Facility): CTDIvol = ( 23.05 ) mGy, DLP = ( 886.27 ) mGycm TECHNIQUE: Transaxial images were obtained from the dome of the diaphragm to the symphysis pubis without oral contrast. IV 100mL Isovue-370 was administered. Sagittal and coronal images were reconstructed. Individualized dose optimization techniques were used for this CT. COMPARISON: Comparison is made with prior study dated July 26, 2018. FINDINGS: Small right pleural effusion with right basilar atelectasis. Coronary artery calcification. Stable hepatic cysts. The patient is status post cholecystectomy. Normal spleen. Normal pancreas. Normal bilateral adrenal glands. Normal right kidney. There is a 1.5 cm cyst in the posterior medial portion of the left kidney. There is a moderate-sized hiatal hernia. Normal small intestine. There are multiple colonic diverticula consistent with diverticulosis. Diffuse circumferential wall thickening of the rectum with mild degree of increased markings in the presacral fat. There is non-visualization of the appendix. There is diffuse atherosclerotic calcification of the abdominal aorta and its major visceral branches. Mild degree of mural thrombus of the abdominal aorta., without a demonstrated aneurysm. Normal inferior vena cava. Normal retroperitoneum. The bladder is not adequately distended. This evidence of diffuse bladder wall thickening. The patient is status post cholecystectomy. Normal abdominal wall. There are degenerative changes of the visualized lumbar spine. CT/Abdomen/Pelvis W IV Cont ONLY IMPRESSION: Status post cholecystectomy and hysterectomy. Stable hepatic and left renal cysts. Sigmoid diverticulosis. Circumferential wall thickening of the rectum with increased markings in the surrounding peritoneal fat and presacral fat. Inflammatory change should be ruled out. Electronically Signed: Bertram Brown MD at 12:29 EDT ,
[2022-08-13 11:25] LABS: Absolute Lymphocyte Count 1.26 X10^3/uL (0.83-4.51); Absolute Neutrophil Count 4.6 X10^3/uL (2.0-7.7); Basophil# 0.03 X10^3/uL; Basophil% 0.5 % (0-1); Eosinophil# 0.08 X10^3/uL; Eosinophils% 1.2 % (0-5); Hemoglobin 8.6 g/dL (12.0-15.0); Lymphocyte # 1.26 X10^3/ul (0.83-4.51); Lymphocyte % 19.4 % (19-41); Mean Corp Hgb Conc 29.7 g/dL (32-36); Mean Corpuscular Hgb 30.2 pg (27.0-32.0); Mean Corpuscular Volume 101.8 fL (81-99); Mean Platelet Vol. 9.9 fl (6.2-12.0); Monocyte# 0.55 X10^3/uL; Monocyte% 8.4 % (0-10); NRBC Flagged by Analyzer 0 % (0-5); Neutrophil # 4.57 X10^3/uL (2.7-7.7); Neutrophil % 70.2 % (47-70); Platelet Count 255 K/mm3 (150-450); RBC Distribution Width CV 14.6 % (11.6-14.6); RBC Distribution Width SD 53.5 fl (35.1-43.9); Red Blood Count 2.85 M/mm3 (4.2-5.4); White Blood Count 6.5 K/mm3 (4.4-11.0)
[2022-08-13 11:43] LABS: ALB/GLOB Ratio 0.8 RATIO (0.9-2.4); AST(SGOT) 24 U/L (15-37); Alanine Aminotransfer ALT/SGPT 41 U/L (13-56); Albumin, Serum 2.9 g/dL (3.2-5.0); Alkaline Phosphatase 116 U/L (45-117); Anion Gap 5 (5-15); BUN 51 mg/dL (7-18); BUN/Creat Ratio 14.7 RATIO (10-20); Calcium,Total 8.9 mg/dL (8.5-10.1); Chloride 114 mmol/L (98-107); Creatinine, Serum 3.46 mg/dL (0.55-1.02); EST Glomerular Filtration Rate 14 mL/min (>60); Est Glom Filt Rate - Afr Amer 16 mL/min (>60); Estimated Creatinine Clearance 12.06 ml/min; Globulin 3.7 g/dL (2.2-4.2); Glucose 190 mg/dL (74-106); Potassium 4.3 mmol/L (3.5-5.1); Protein, Total 6.6 g/dL (6.4-8.2); Sodium Level 141 mmol/L (136-145)
[2022-08-13] MEDS: 0.9% Normal Saline 1,000 ML 1000 ML IV (11:50)
[2022-08-13 11:59] LABS: Red Blood Cells-Urine 0 SEEN /hpf (0-5)
[2022-08-13 12:07] LABS: Color, Urine Straw (Yellow); Glucose, Dipstick Normal (Normal); Ketone-Dipstick Negative (Negative); Leukocyte Esterase-Dipstick 25 /ul (Negative); Nitrite-Dipstick Negative (Negative); Occult Blood-Urine 25 /ul (Negative); Protein-Dipstick 100 mg/dl (Negative); Urine Bilirubin Dipstick Negative (Negative); Urine Clarity Clear (Clear); Urine Urobilinogen Normal (Normal); Urine pH 6.5 (5.0 - 8.0)
[2022-08-13 12:19] LABS: Bacteria RARE /hpf (None Seen); Mucous, Urine RARE /hpf (<or=2+); Squamous Epithelial Cells - UA 0-5 SEEN /hpf (5-10); White Blood Cells 0-5 SEEN /hpf (0-5)
[2022-08-13 13:24] VITALS: RESP 16
== END 2022-08-13 13:25 | disposition home or self-care (01) ==
PROVIDERS: Emergency Provider Emergency Medicine; PCP Family Medicine; Referring Provider Emergency Medicine; Visit Provider Emergency Medicine
DX: K62.5 Hemorrhage of anus and rectum (principal); N18.30 Chronic kidney disease, stage 3 unspecified; I25.10 Atherosclerotic heart disease of native coronary artery without angina pectoris; Z86.73 Personal history of transient ischemic attack (TIA), and cerebral infarction without residual deficits; Z79.01 Long term (current) use of anticoagulants
CPT/HCPCS: 74177; 80053; 81001; 85025; 96360; 99283; J7030; Q9967; A4216

== ENCOUNTER 2023-03-25 10:46 | Outpatient (CLI) | payer MEDICARE, OTHER, SELFPAY ==
[2023-03-25] MEDS: 0.9% NaCl Peripheral Flush Adult/Peds IV (11:20)
[2023-03-25 11:31] VITALS: BP 103/42; PULSE 58; RESP 16; TEMP 36.2; O2SAT 96; BMI 23.6
[2023-03-25 12:07] VITALS: BP 113/41; PULSE 59; RESP 16; TEMP 36.2; O2SAT 96
[2023-03-25 13:07] VITALS: BP 108/33; PULSE 61; RESP 16; TEMP 35.9; O2SAT 95
[2023-03-25 14:10] VITALS: BP 121/46; PULSE 60; TEMP 35.8; O2SAT 95
== END 2023-03-25 10:47 | disposition home or self-care (01) ==
LOC: MEDOUTP 10:46
PROVIDERS: PCP Family Medicine; Referring Provider Internal Medicine Nephrology; Visit Provider Internal Medicine Nephrology
DX: D64.9 Anemia, unspecified (principal); N18.6 End stage renal disease
CPT/HCPCS: 36415; 36430; 86850; 86900; 86901; 86920; 86922; P9016; A4216